=== PATIENT | male | born 1940 | race Caucasian/White ===

== ENCOUNTER 2018-08-29 11:23 | Emergency (ER) | payer MEDICARE, OTHER ==
--- NOTE | 2018-08-29 13:19 | ED ---
Skin Complaint - HPI Summary HPI Summary: Patient is a 78-year-old male who was recently moved here from [place] presenting to the ED with a large area to his back which is raised and slightly painful to the touch. Denies any erythema or warmth to the area. Denies fevers , sweats, chills. He has never had anything like this before. The areas been present times approximately 2-3 weeks, but patient is unable to see the area, so is unsure how long it has been present. He is also requesting medications refills on his glipizide 5 mg of lisinopril 5 mg. He states he is otherwise feeling well and stable. He uses the [facility]. Currently has a history of diabetes and hypertension. - History of Current Complaint Chief Complaint: EDRashSkinAbscess Time Seen by Provider: 08/29/18 11:38 Stated Complaint: SOMETHING ON MY BACK PER PT Hx Obtained From: Patient Onset/Duration: Started Hours Ago Skin Exposure Onset/Duration: Hours Ago Timing: Constant Onset Severity: Mild Current Severity: Mild Pain Intensity: 0 Pain Scale Used: 0-10 Numeric Skin Location: Other: - upper left back Aggravating Symptom(s): Nothing Alleviating Symptom(s): Nothing Associated Signs & Symptoms: Negative - Allergy/Home Medications Allergies/Adverse Reactions: Allergies Allergy/AdvReac Type Severity Reaction Status Date / Time No Known Allergies Allergy Verified 08/29/18 11:26 Home Medications: Home Medications Aspirin 81 mg CHEW TAB* [Aspirin Low Dose TAB*] 81 mg PO DAILY 08/29/18 [ History Confirmed 08/29/18] Lisinopril 5 mg PO DAILY 08/29/18 [History Confirmed 08/29/18] Simvastatin 20 mg PO BEDTIME 08/29/18 [History Confirmed 08/29/18] glipiZIDE TAB* [Glucotrol TAB*] 5 mg PO DAILY 08/29/18 [History Confirmed ] PMH/Surg Hx/FS Hx/Imm Hx Previously Healthy: Yes - Immunization History Hx Pertussis Vaccination: No Immunizations Up to Date: Yes Infectious Disease History: No Infectious Disease History: Denies: Traveled Outside the US in Last 30 Days - Social History Occupation: Unemployed Lives: With Family Alcohol Use: None Hx Substance Use: No Substance Use Type: Reports: None Hx Tobacco Use: No Smoking Status (MU): Never Smoked Tobacco Review of Systems Constitutional: Negative Negative: Fever, Chills, Fatigue, Skin Diaphoresis Negative: Palpitations, Chest Pain Negative: Shortness Of Breath, Cough Positive: no symptoms reported, see HPI Positive: Arthralgia, Myalgia Positive: Other - 2x2cm slightly raised area to the L upper back respresenting likely cyst vs abscess Neurological: Negative All Other Systems Reviewed And Are Negative: Yes Physical Exam Triage Information Reviewed: Yes Vital Signs On Initial Exam: Initial Vitals Temp Pulse Resp BP Pulse Ox 96.7 F 96 14 187/107 95 08/29/18 11:27 08/29/18 11:27 08/29/18 11:27 08/29/18 11:27 08/29/18 11:27 Vital Signs Reviewed: Yes Appearance: Positive: Well-Appearing, Well-Nourished Skin: Positive: Warm, Skin Color Reflects Adequate Perfusion, Other - 2x2cm slightly raised area to the L upper back respresenting likely cyst vs abscess Head/Face: Positive: Normal Head/Face Inspection Eyes: Positive: EOMI, ALEJANDRO, Conjunctiva Clear Neck: Positive: Supple, No Lymphadenopathy Respiratory/Lung Sounds: Positive: Clear to Auscultation, Breath Sounds Present Cardiovascular: Positive: RRR, Pulses are Symmetrical in both Upper and Lower Extremities Neurological: Positive: Speech Normal Psychiatric: Positive: Affect/Mood Appropriate Diagnostics - Vital Signs Vital Signs Temp Pulse Resp BP Pulse Ox 08/29/18 11:27 96.7 F 96 14 187/107 95 - Laboratory Lab Statement: Any lab studies that have been ordered have been reviewed, and results considered in the medical decision making process. Course/Dx - Course Course Of Treatment: During his course of treatment from the patient is evaluated for a 2 x 2 abscess to the back which is located to the upper left side. The area is only somewhat raised, no erythema or warmth to the area. On physical examination, there is tenderness to palpation. The area began to spontaneously drain with deep pressure to the outside of the likely abscess. Small amount of mashed potato consistency and purulent drainage from the area. Likely cyst versus abscess. There is no erythema or warmth to the area. Patient will not be placed on antibiotics. However, he is given the bedside and lisinopril at his regular doses 30 days. He will follow up at the [facility] clinic and states he has already called them to schedule an appointment. He offers no other complaints at this time. Bandage applied to the area. - Diagnoses Provider Diagnoses: Cyst, Medication refill Discharge - Sign-Out/Discharge Documenting (check all that apply): Patient Departure Patient Received Moderate/Deep Sedation with Procedure: No - Discharge Plan Condition: Stable Disposition: HOME Prescriptions: glipiZIDE [Glipizide ER] 5 mg PO DAILY #30 tab.er.[id number] Lisinopril TAB* [Prinivil TAB 5 MG*] 5 mg PO DAILY #30 tab Patient Education Materials: Abscess (ED) Referrals: No Primary Care Phys,NOPCP [Primary Care Provider] - Additional Instructions: Take off bandage tonight Warm compresses or hot showers may help drain the area more This is an abscess and does not require antibiotics at this time Lisinopril 5mg once daily Glipizide 5mg once daily [facility] - Billing Disposition and Condition Condition: STABLE Disposition: Home
[2018-08-29 13:22] VITALS: BP 175/101
== END 2018-08-29 12:40 | disposition home or self-care (01) ==
LOC: ED 11:23
DX: L72.8 Other follicular cysts of the skin and subcutaneous tissue (principal); Z76.0 Encounter for issue of repeat prescription; I10 Essential (primary) hypertension; E11.9 Type 2 diabetes mellitus without complications; Z79.82 Long term (current) use of aspirin; Z79.84 Long term (current) use of oral hypoglycemic drugs
CPT/HCPCS: 87070; 87076; 87077; 87205; 87640; 87641; 99282

== ENCOUNTER 2019-01-19 14:47 | Emergency (ER) | payer OTHER ==
--- NOTE | 2019-01-19 17:23 | ED ---
Laceration/Wound HPI - HPI Summary HPI Summary: This patient is a 78 year old M presenting to [facility] with a chief complaint of a laceration on his left big toe since a few months ago that is now infected. His PCP told him to come to [facility] to get his laceration evaluated. The patient rates the pain 0/10 in severity. Symptoms aggravated by nothing. Symptoms alleviated by nothing. Patient denies fever, chills, nausea, vomiting. Medications reviewed. Allergies noted. PMHx of HTN and diabetes. Pt does not smoke, use drugs, or drink alcohol. - History of Current Complaint Stated Complaint: LAC ON RT BIG TOE PER PT Time Seen by Provider: 01/19/19 17:11 Hx Obtained From: Patient Onset/Duration: Sudden Onset, Still Present, Other - since a few months ago Aggravating: Nothing Alleviating: Nothing Timing: Constant Onset Severity: Mild Current Severity: Mild Pain Intensity: 0 Pain Scale Used: 0-10 Numeric - Allergy/Home Medications Allergies/Adverse Reactions: Allergies Allergy/AdvReac Type Severity Reaction Status Date / Time No Known Allergies Allergy Verified 01/19/19 14:54 Home Medications: Home Medications Simvastatin TAB(NF) [Zocor(NF)] 20 mg PO BEDTIME 01/19/19 [History Confirmed 03/29] PMH/Surg Hx/FS Hx/Imm Hx Previously Healthy: No Endocrine/Hematology History: Reports: Hx Diabetes Cardiovascular History: Reports: Hx Hypertension Sensory History: Denies: Hx Deafness Opthamlomology History: Denies: Hx Cataracts - Surgical History Surgical History: Yes Infectious Disease History: No Infectious Disease History: Denies: Traveled Outside the US in Last 30 Days - Family History Known Family History: Positive: None - Social History Alcohol Use: None Hx Substance Use: No Substance Use Type: Reports: None Hx Tobacco Use: No Smoking Status (MU): Never Smoked Tobacco Review of Systems Negative: Fever, Chills Negative: Vomiting, Nausea Skin: Other - positive - laceration on his left big toe All Other Systems Reviewed And Are Negative: Yes Physical Exam - Summary Physical Exam Summary: Constitutional: Well-developed, Well-nourished, Alert. (-) Distressed Skin: Warm, Dry. Right big toe has a necrotic wound on the plantar aspect, toe is colder than the rest of the foot. Full ROM in big toe HENT: Normocephalic; Atraumatic Eyes: Conjunctiva normal Neck: Musculoskeletal ROM normal neck. (-) JVD, (-) Stridor, (-) Tracheal deviation Cardio: Rhythm regular, rate normal, Heart sounds normal; Intact distal pulses; The pedal pulses are 2+ and symmetric. Radial pulses are 2+ and symmetric. (-) Murmur Pulmonary/Chest wall: Effort normal. (-) Respiratory distress, (-) Wheezes, (-) Rales Abd: Soft, (-) tenderness, (-) Distension, (-) Guarding, (-) Rebound Musculoskeletal: (-) Edema Lymph: (-) Cervical adenopathy Neuro: Alert, Oriented x3 Psych: Mood and affect Normal Triage Information Reviewed: Yes Vital Signs On Initial Exam: Initial Vitals Temp Pulse Resp BP Pulse Ox 97.7 F 68 16 156/91 99 01/19/19 14:52 01/19/19 14:52 01/19/19 14:52 01/19/19 14:52 01/19/19 14:52 Vital Signs Reviewed: Yes Diagnostics - Vital Signs Vital Signs Temp Pulse Resp BP Pulse Ox 01/19/19 14:52 97.7 F 68 16 156/91 99 - Laboratory Result Diagrams: 01/19/19 17:37 01/19/19 17:37 Lab Statement: Any lab studies that have been ordered have been reviewed, and results considered in the medical decision making process. Laceration Repair Course/Dx - Course Course Of Treatment: Patient is here from his PCPs office with an x-ray that shows possible to myelitis or septic arthritis. Patient has no pain in his joint has full range of motion making septic arthritis likely. Patient's toe does appear chronically infected but patient had a normal leukocytosis, negative ESR, negative CRP. Patient was offered admission for further management as he is at high risk for losing his toe. Patient was made aware that he can lose his toe and that he can become septic from an infection. Plan admission multiple attempts left AGAINST MEDICAL ADVICE. - Clinical Impression Provider Diagnoses: Toe infection Discharge ED - Sign-Out/Discharge Documenting (check all that apply): Patient Departure - discharge Patient Received Moderate/Deep Sedation with Procedure: No - Discharge Plan Condition: Stable Disposition: HOME Prescriptions: Sulfamethox/Trimethoprim DS* [Bactrim DS 800/160 TAB*] 1 tab PO BID 7 Days #14 tab Referrals: Floyd,Maribel L [Primary Care Provider] - 2 Days Additional Instructions: Take the antibiotics as prescribed. Come back to the ED if you decide to get treated. Follow up with your primary care provider within 1-3 days. - Billing Disposition and Condition Condition: STABLE Disposition: Home - Attestation Statements Document Initiated by Jason: Yes Documenting Scribe: Bennett Olmos Provider For Whom Jason is Documenting (Include Credential): Dr. Rober Lovell MD Scribe Attestation: Bennett Guthrie scribed for Dr. Rober Lovell MD on 01/19/19 at 2049. Scribe Documentation Reviewed: Yes Provider Attestation: The documentation as recorded by the Bennett soto accurately reflects the service I personally performed and the decisions made by me, Dr. Rober Lovell MD Status of Scribe Document: Viewed
[2019-01-19 17:44] LABS: ABS Eosinophils 0.1 10^3/ul (0-0.6); ABS Lymphocytes 1.2 10^3/ul (1.0-4.8); ABS Monocytes 0.8 10^3/ul (0-0.8); ABS Neutrophils 5.6 10^3/ul (1.5-7.7); Eosinophil % 0.9 %; Hematocrit 47 % (42-52); Hemoglobin 15.3 g/dL (14.0-18.0); Lymphocyte % 15.7 %; Mean Corpuscular HGB Conc 32 g/dL (31-36); Mean Corpuscular Hemoglobin 29 pg (27-31); Mean Corpuscular Volume 91 fL (80-94); Mean Platelet Volume 8.5 fL (7.4-10.4); Nucleated Red Blood Cells % 0.2; Platelet Count 252 10^3/uL (150-450); Red Blood Count 5.19 10^6 /uL (4.18-5.48); Red Cell Distribution Width 15 % (10-15); White Blood Count 7.8 10^3/uL (3.5-10.8)
[2019-01-19 18:01] LABS: ALT 16 U/L (7-52); AST 20 U/L (13-39); Albumin 4.3 g/dL (3.2-5.2); Albumin/Globulin Ratio 1.6 (1-3); Alkaline Phosphatase 56 U/L (34-104); Anion Gap 11 mmol/L (2-11); BUN/Creatinine Ratio 17.8 (8-20); Blood Urea Nitrogen 28 mg/dL (6-24); C Reactive Protein < 1.00 mg/L (<8.01); CO2 Carbon Dioxide 24 mmol/L (22-32); Calcium 9.7 mg/dL (8.6-10.3); Chloride 102 mmol/L (101-111); EGFR Non-African American 42.9 (>60); Globulin 2.7 g/dL (2-4); Glucose 135 mg/dL (70-100); Potassium 4.5 mmol/L (3.5-5.0); Sodium 137 mmol/L (135-145)
[2019-01-19 19:21] LABS: Erythrocyte Sed Rate 17 mm/Hr (0-19)
[2019-01-19 20:01] VITALS: BP 136/96
== END 2019-01-19 20:02 | disposition home or self-care (01) ==
LOC: ED 14:47
DX: L08.9 Local infection of the skin and subcutaneous tissue, unspecified (principal); I10 Essential (primary) hypertension; E11.9 Type 2 diabetes mellitus without complications; Z79.82 Long term (current) use of aspirin; Z79.84 Long term (current) use of oral hypoglycemic drugs; Z79.899 Other long term (current) drug therapy
CPT/HCPCS: 36415; 80053; 85025; 85652; 86140; 87040; 99282

== ENCOUNTER 2019-08-20 21:39 | Inpatient (IN) | payer OTHER ==
[2019-08-20] MEDS ORDERED: Diazepam INJ CARPUJECT* 5 MG/ML IV ONE (21:42)
[2019-08-20] MEDS ORDERED: Diazepam INJ CARPUJECT* 5 MG/ML ONE (21:42)
--- NOTE | 2019-08-20 21:42 | ED ---
Neurological HPI - HPI Summary HPI Summary: 79-year-old male with history of diabetes/hypertension arriving via ambulance to [facility] for evaluation of altered mental status and two seizures during transport. Per EMS, they were called by the patients roommate who found him unresponsive but still breathing. When EMS arrived, they found the patient to be awake and able to answer questions appropriately. While trying to move him onto the stretcher, the patient began seizing on the bed. He began desatting into the 70s, so he was placed on 10L non rebreather. Patient then was confused although awake and became combative in transport. He seized again upon arrival to the ED at 2136. Patient did not receive any medications in the ambulance, but Valium was given in the ED while entering the room. patient was incontinent of urine, 12-lead was non-diagnostic for a STEMI. Blood glucose reported as 293 but fingerstick is too high to read. Vitals otherwise within normal limits. Two [address]. Unknown last well known. Patient's roommate unsure of patient's history. LEVEL 5 CAVEAT SECONDARY TO ALTERED MENTAL STATUS. History obtained from EMS and medical records. - History of Current Complaint Stated Complaint: SEIZURES PER EMS Hx Obtained From: EMS, Medical Records Hx From Patient Unobtainable Due To: Altered Mental Status Number of Seizures: 2 - per EMS Neurological Deficit Location: Generalized Pain Intensity: 0 Pain Scale Used: 0-10 Numeric Character: Confusion, Agitation Associated Signs and Symptoms: Positive: Agitation, Seizure - x2, AMS - Allergy/Home Medications Allergies/Adverse Reactions: Allergies Allergy/AdvReac Type Severity Reaction Status Date / Time No Known Allergies Allergy Verified 01/19/19 14:54 Home Medications: Home Medications Aspirin 81 mg CHEW TAB* [Aspirin Low Dose TAB*] 81 mg PO DAILY 08/29/18 [ History Confirmed 08/20/19] glipiZIDE TAB* [Glucotrol TAB*] 5 mg PO DAILY 08/29/18 [History Confirmed ] Atenolol TAB* [Tenormin TAB* 50 MG] 50 mg PO DAILY 08/20/19 [History Confirmed 08/20/19] Atorvastatin Calcium [Lipitor] 80 mg PO DAILY 08/20/19 [History Confirmed ] Finasteride [Proscar] 5 mg PO DAILY 08/20/19 [History Confirmed 08/20/19] Lisinopril TAB* [Prinivil TAB 5 MG*] 10 mg PO DAILY 08/20/19 [History Confirmed 08/20/19] PMH/Surg Hx/FS Hx/Imm Hx Endocrine/Hematology History: Reports: Hx Diabetes Cardiovascular History: Reports: Hx Hypertension Sensory History: Denies: Hx Cataracts, Hx Deafness Opthamlomology History: Denies: Hx Cataracts - Surgical History Surgical History: Unable to Obtain/Confirm - LEVEL 5 CAVEAT SECONDARY TO ALTERED MENTAL STATUS. - Family History Family History: LEVEL 5 CAVEAT SECONDARY TO ALTERED MENTAL STATUS. - Social History Alcohol Use: None Alcohol Amount: unknown, patient level 5 caveat d/t AMS Substance Use Comment - Amount & Last Used: unknown, patient level 5 caveat d/t AMS Smoking Status (MU): Unknown if Ever Smoked - unknown, patient level 5 caveat d/ t AMS - Additional Comments History Additional Comments: diabetes, hypertension Review of Systems - ROS Summary Review of Systems Summary: Home Medications Medication Instructions Recorded Confirmed Type Aspirin 81 mg CHEW TAB* [Aspirin 81 mg PO DAILY 08/29/18 01/19/19 History Low Dose TAB*] Lisinopril TAB* [Prinivil TAB 5 5 mg PO DAILY #30 tab 08/29/18 01/19/19 Rx MG*] glipiZIDE TAB* [Glucotrol TAB*] 5 mg PO DAILY 08/29/18 01/19/19 History Simvastatin TAB(NF) [Zocor(NF)] 20 mg PO BEDTIME 01/19/19 01/19/19 History Sulfamethox/Trimethoprim DS* 1 tab PO BID 7 Days #14 tab 01/19/19 Rx [Bactrim DS 800/160 TAB*] Positive: incontinence Neurological/Mental Status: Other - AMS, seizing Psychological: Other - combative All Other Systems Reviewed And Are Negative: No - Comments Additional Review of Systems Comments: LEVEL 5 CAVEAT SECONDARY TO ALTERED MENTAL STATUS. Physical Exam - Summary Physical Exam Summary: General: Elderly male, disheveled, Unkempt appearing, Incontinent of urine upon arrival. Received 5mg Valium upon arrival. HEENT: Normocephalic, Atraumatic. Eyes: Conjuctiva normal, PERRL. Oropharynx: Clear, mucous membranes moist, (-) exudates. Neck: Soft, FROM, (-) lymphadenopathy, (-) thyromegaly, (-) JVD. Cardiovascular: Irregularly irregular, (-) murmur. Lungs: Currently 93% on 15L, Decreased breath sounds bilaterally, Tight wheezing throughout, (-) rales, (-) rhonchi. Abdomen: Soft, non-tender, non-distended, (-) organomegaly, normal bowel sounds. Extremities: No edema. Skin: Skin tears of the left forearm, Lower legs have thickened skin, Old ecchymosis of the right knee, Color pretty mullins/purple upon arrival in the extremities, (-) rash Neuro: Responsive to painful stimuli, Does not follow commands, Moving all extremities Psychiatric: Unable to assess GCS: 9 (see scale) Triage Information Reviewed: Yes Vital Signs Reviewed: Yes Completion Of Physical Exam Limited Due To: Altered Mental Status, Level 5 - [place] Coma Scale Best Eye Response: 4 - Spontaneous Best Motor Response: 4 - Withdraws Best Verbal Response: 1 - None Coma Scale Total: 9 Glascow Coma Scale Comments: inital upon arrival at 2136 Procedures - Sedation Patient Received Moderate/Deep Sedation with Procedure: No Diagnostics - Laboratory Result Diagrams: 08/20/19 21:48 08/20/19 21:48 Lab Statement: Any lab studies that have been ordered have been reviewed, and results considered in the medical decision making process. - Radiology CXR Radiology Interpretation Completed By: ED Physician Summary of Radiographic Findings: Poor inspiration. This film was reviewed and interpreted by Dr. Torres, pending official read. - CT Brain CT CT Interpretation Completed By: Radiologist Summary of CT Findings: Impression: Right middle cerebral artery appears hyperdense. This report was reviewed by Dr. Torres. Head/Neck CTA CT Interpretation Completed By: Radiologist Summary of CT Findings: Head Impression: No significant stenosis or occlusion. Neck Impression: No acute abnormality. This report was reviewed by Dr. Torres. - EKG 2202 Cardiac Rate: Other Rate - 96 BPM EKG Rhythm: Atrial Fibrillation Summary of EKG Findings: EKG at 2202 reveals atrial fibrillation at rate of 96 BPM. No STEMI. This EKG was reviewed and interpreted by Dr. Torres. Re-Evaluation - Re-Evaluation First Eval Re-Evaluation Time: 21:45 Comment: Nurse Sherly spoke with the patients sister via phone, who relayed to her that she and the patient havent spoken in over a month. She does not any of his past medical history. Second Eval Re-Evaluation Time: 22:30 Comment: Sherly spoke with Shay at the [facility]. He will send history about the patient via fax. Course/Dx - Course Course Of Treatment: 79-year-old male brought in by ambulance with active seizure. EMS syas they were called to the home by a roommate. Roommate states she found the patient unresponsive. When EMS arrived, first responders were there and patient was sitting up talking to them. He then started seizing and was taken to the ambulance. The roommate knows absolutely nothing about the patient. According to the chart, he has hypertension and diabetes. Blood glucose too high to read on arrival. Valium 5mg given IV. Patient sent immediately to CAT scan for CT head. IV fluids started. ABG demonstrates elevated CO2. low oxygen. Low pH. Patient placed on BiPAP. Given duonebs. potassium returns at 2.7 so insulin cannot be started until potassium was replaced. Anion gap is elevated suggestive of DKA. CT head has a questionable abnormality in the MCA. CTA head and neck are essentially normal. patient given IV fluids. Potassium. Repeat ABG on BiPAP has improved significantly. Patient referred to hospitalist for admission. - Diagnoses Provider Diagnoses: Seizure, Acute respiratory failure, DKA (diabetic ketoacidosis), Hypokalemia - Physician Notifications Discussed Care Of Patient With: Cyn Doyle - hospitalist Time Discussed With Above Provider: 23:50 Instructed by Provider To: Other - I discussed the patients case with Dr. Doyle, who accepts the patient for admission. - Critical Care Time Critical Care Time: 75-104 min - 100 minutes Discharge ED - Sign-Out/Discharge Documenting (check all that apply): Patient Departure - Patient accepted for admission by Dr. Doyle. - Discharge Plan Condition: Stable Disposition: ADMITTED TO [facility] Referrals: Maribel George [Primary Care Provider] - - Billing Disposition and Condition Condition: STABLE Disposition: Admitted to [facility] - Attestation Statements Document Initiated by Scribe: Yes Documenting Scribe: Cari Joshi Provider For Whom Scribe is Documenting (Include Credential): Neela Torres MD Scribe Attestation: ICari, scribed for Neela Torres MD on 08/21/19 at 0039. Scribe Documentation Reviewed: Yes Provider Attestation: The documentation as recorded by the scribe, Cari Joshi accurately reflects the service I personally performed and the decisions made by me, Neela Torres MD Status of Scribifrah Document: Viewed
[2019-08-20] MEDS ORDERED: Succinylcholine* 20 MG/ML 10 ML VIAL ONE (21:44)
[2019-08-20] MEDS ORDERED: NS 0.9% 1000 ML** 1,000 ML IV ONE ×2 (21:46→23:32)
--- OUTSIDE RECORDS SUMMARY | 2019-08-20 21:49 | XMS REPORT | Continuity of Care Document ---
:1940 External Reference #:[id number] Author Name Belgica Esposito O.D. (transmitted by agent of provider Lizbet Aguirre) Address [address] [place] [address] Care Team Providers Name Role Phone Maribel George N.P. - Nurse Care Team Information Purification Director [phone] Practitioner Problems Active Problems Provider Date Type 2 diabetes mellitus Onset: Nuclear senile cataract Belgica Esposito O.D. Onset: 04/19/2019 Social History Type Date Description Comments Sex Unknown ETOH Use Denies alcohol use Tobacco Use Start: Unknown End: Patient is a former smoker Recreational Drug Use Denies Drug Use Smoking Status Reviewed: 04/19/19 Patient is a former smoker Allergies, Adverse Reactions, Alerts Description No Known Drug Allergies Medications Active Medications SIG Qnty Indications Ordering Provider Date Hydrochlorothiazide Unknown 12.5mg Tablets Simvastatin Unknown 40mg Tablets Tamsulosin HCL Unknown 0.4mg Capsules Immunizations Description No Information Available Vital Signs Description No Information Available Results Description No Information Available Procedures Date Code Description Status 04/19/2019 36023 New Patient Comprehensive Exam Completed Medical Devices Description No Information Available Encounters Description No Information Available Assessments Date Code Description Provider 04/19/2019 H25.13 Age-related nuclear cataract, bilateral Belgiac Esposito O.D. 04/19/2019 E11.9 Type 2 diabetes mellitus without complications Belgica Esposito O.D. Plan of Treatment 04/19/2019 - Belgica Esposito O.D.H25.13 Age-related nuclear cataract, bilateralComments:You have been diagnosed with cataracts. They are limiting your vision, and I am unable to improve your vision with new glasses. I am recommending you schedule cataract surgery at your earliest convenience. Please speak with Antonina at to set up all necessary appointments. Antonina will set up a preoperative appointment to get all of your measurements for surgery. We recommend that you write down any questions you may have so Dr. Su can address them at this appointment.Follow up:For preop exam before surgery.E11.9 Type 2 diabetes mellitus without complicationsComments:Smoking can increase the risk of developing or worsening any eye related disease, as well as affect your overall health. If you are a smoker, we strongly recommend that you quit.If you are not a smoker, we strongly recommend that you do not start. You have diabetes. I do not detect any changes in both of your retinas from diabetes at this time. Proper control of your diabetes is important for the health of your eyes. Changes in your eyes from diabetes can happen without symptoms, so it is important that you have your eyes examined. Functional Status Description No Information Available Mental Status Description No Information Available Referrals Refer to Dr Reason for Referral Status Appt Date Jose Juan Cortes M.D. CATARACT Created [address] [place] [id number] [phone] Belgica Esposito O.D. Created [facility] [address] [address] [phone] Belgica Esposito O.D. ROUTINE Created [facility] [address] [address] [phone]
[2019-08-20] MEDS ORDERED: Albuterol/Ipratropium NEB.SOL* Albuterol 2.5 MG/Ipratropium 0.5 MG 3 ML ONE (22:08)
[2019-08-20 22:10] LABS: ABS Basophils 0.1 10^3/ul (0-0.2); ABS Lymphocytes 2.5 10^3/ul (1.0-4.8); ABS Monocytes 1.3 10^3/ul (0-0.8); ABS Neutrophils 9.6 10^3/ul (1.5-7.7); Eosinophil % 0.2 %; Hematocrit 52 % (42-52); Hemoglobin 16.8 g/dL (14.0-18.0); Lymphocyte % 18.2 %; Mean Corpuscular HGB Conc 32 g/dL (31-36); Mean Corpuscular Hemoglobin 29 pg (27-31); Mean Corpuscular Volume 91 fL (80-94); Mean Platelet Volume 9.2 fL (7.4-10.4); Platelet Count 266 10^3/uL (150-450); Red Blood Count 5.74 10^6 /uL (4.18-5.48); Red Cell Distribution Width 15 % (10-15); White Blood Count 13.5 10^3/uL (3.5-10.8)
[2019-08-20 22:20] LABS: Activated Partial Thrombo Time 29.6 seconds (26.0-38.0); INR 1.03 (0.82-1.09)
[2019-08-20 22:26] LABS: ALT 19 U/L (7-52); AST 21 U/L (13-39); Albumin 4.2 g/dL (3.2-5.2); Albumin/Globulin Ratio 1.4 (1-3); Alkaline Phosphatase 94 U/L (34-104); BUN/Creatinine Ratio 11.9 (8-20); Blood Urea Nitrogen 20 mg/dL (6-24); CO2 Carbon Dioxide 26 mmol/L (22-32); Calcium 9.5 mg/dL (8.6-10.3); Chloride 89 mmol/L (101-111); EGFR African American 47.9 (>60); EGFR Non-African American 39.6 (>60); Magnesium 1.6 mg/dL (1.9-2.7); Sodium 136 mmol/L (135-145); Total Protein 7.2 g/dL (6.4-8.9)
[2019-08-20] MEDS ORDERED: Iodixanol* (CONTRAST) 320 MG/ML 100 ML SDV IV ONE (22:27)
[2019-08-20 22:30] LABS: Alcohol 11 mg/dL (<10)
[2019-08-20 22:37] LABS: Anion Gap 21 mmol/L (2-11); Glucose 703 mg/dL (70-100); Potassium 2.7 mmol/L (3.5-5.0); Troponin I 0.05 ng/mL (<0.03)
[2019-08-20] MEDS ORDERED: NS 0.9% IVPB ONE ×2 (22:41)
[2019-08-20] MEDS ORDERED: POTASSIUM CHLORIDE TPN IVPB ONE ×2 (22:41)
[2019-08-20] MEDS ORDERED: Lorazepam PYXIS KEY ONE (22:58)
[2019-08-20] MEDS ORDERED: LORazepam INJ* 2 MG/ML 1 ML VIAL ONE (22:59)
[2019-08-20] MEDS ORDERED: LORazepam INJ* 2 MG/ML 1 ML VIAL IV PUSH ONE (22:59)
[2019-08-20] MEDS ORDERED: Albuterol/Ipratropium NEB.SOL* Albuterol 2.5 MG/Ipratropium 0.5 MG 3 ML INH ONE (23:03)
[2019-08-20] MEDS: KCL 20 MEQ/100 ML IVPREMIX* 20 MEQ/100 ML BAG IV SCH (23:39)
[2019-08-20 23:41] LABS: Urine Appearance Cloudy; Urine Bilirubin Negative (Negative); Urine Blood 3+ (Negative); Urine Color Yellow; Urine Glucose 3+(>=500 mg/dL) (Negative); Urine Ketones Negative (Negative); Urine Nitrite Negative (Negative); Urine Protein 1+(30 mg/dL) (Negative); Urine Specific Gravity 1.022 (1.010-1.030); Urine Urobilinogen Negative (Negative)
[2019-08-20 23:45] LABS: Urine Bacteria Absent (Absent); Urine Red Blood Cell 3+(>10/hpf) (Absent); Urine White Blood Cell Trace(0-5/hpf) (Absent)
[2019-08-20 23:53] LABS: Urine Benzodiazepine Screen None Detected (None Detect); Urine Opiates Screen None Detected (None Detect)
[2019-08-21] MEDS ORDERED: LORazepam INJ* 2 MG/ML 1 ML VIAL IV PUSH ONE (00:29)
[2019-08-21] MEDS ORDERED: Lorazepam PYXIS KEY PRN ×3 (00:29→02:13)
[2019-08-21] MEDS ORDERED: Insulin REGULAR(*) 1 UNITS UNIT IV PUSH ONE ×2 (00:32→01:49)
[2019-08-21] MEDS ORDERED: levETIRAcetam 1000MG IVPREMIX* 1,000 MG/100 ML BAG IVPB ONE (00:39)
[2019-08-21] MEDS ORDERED: Thiamine INJ* 100 MG/ML 2 ML VIAL IM ONE (00:43)
[2019-08-21] MEDS ORDERED: LORazepam INJ* 2 MG/ML 1 ML VIAL IV PUSH PRN (00:55)
[2019-08-21] MEDS ORDERED: NS 0.45% KCl 20 Meq 1000 ML* 1,000 ML IV SCH (01:00)
[2019-08-21] MEDS ORDERED: LORazepam INJ* 2 MG/ML 1 ML VIAL IV PUSH SCH (01:00)
[2019-08-21 01:22] LABS: ABS Lymphocytes 0.4 10^3/ul (1.0-4.8); ABS Monocytes 0.7 10^3/ul (0-0.8); ABS Neutrophils 12.5 10^3/ul (1.5-7.7); Eosinophil % 0.1 %; Hematocrit 46 % (42-52); Hemoglobin 15.3 g/dL (14.0-18.0); Lymphocyte % 3.2 %; Mean Corpuscular HGB Conc 33 g/dL (31-36); Mean Corpuscular Hemoglobin 29 pg (27-31); Mean Corpuscular Volume 87 fL (80-94); Mean Platelet Volume 8.8 fL (7.4-10.4); Platelet Count 213 10^3/uL (150-450); Red Cell Distribution Width 15 % (10-15); White Blood Count 13.7 10^3/uL (3.5-10.8)
[2019-08-21 01:22] LABS: Creatine Kinase 117 U/L (10-223)
[2019-08-21] MEDS ORDERED: Magnesium Sulfate 2 GM IV* 2 G/50 ML BAG IVPB ONE (01:27)
[2019-08-21 01:42] LABS: Anion Gap 11 mmol/L (2-11); BUN/Creatinine Ratio 12.7 (8-20); Blood Urea Nitrogen 19 mg/dL (6-24); CO2 Carbon Dioxide 31 mmol/L (22-32); Calcium 8.5 mg/dL (8.6-10.3); Chloride 95 mmol/L (101-111); Creatine Kinase 108 U/L (10-223); EGFR African American 54.6 (>60); EGFR Non-African American 45.1 (>60); Magnesium 1.4 mg/dL (1.9-2.7); Potassium 3.5 mmol/L (3.5-5.0); Sodium 137 mmol/L (135-145)
[2019-08-21 01:48] LABS: Glucose 575 mg/dL (70-100)
[2019-08-21] MEDS ORDERED: Insulin Infusion 100unit/100mL 100 UNIT/100 ML BAG IV SCH ×2 (02:00→04:00)
[2019-08-21] MEDS: LORazepam INJ* 2 MG/ML 1 ML VIAL IV SCH ×3 (02:35→16:27)
[2019-08-21] MEDS: KCL 20 MEQ/100 ML IVPREMIX* 20 MEQ/100 ML BAG IV SCH ×2 (03:01→06:23)
--- NOTE | 2019-08-21 03:41 | HP ---
HISTORY AND PHYSICAL: DATE OF ADMISSION: 08/21/19 TIME OF EVALUATION: Midnight. PRIMARY CARE PROVIDER: Maribel George NP, at the [facility]. CHIEF COMPLAINT: Seizure. HISTORY OF PRESENT ILLNESS: Mr. Stevenson is a 79-year-old male with a past medical history of hyperte nsion and diabetes, who was brought in by EMS to the emergency room due to altered mental status. Pl ease note that at the time of the interview, the patient is sedated after receiving Ativan and he can not provide any significant history. Information is obtained from emergency room physician and nurse at the bedside. The patient was found with altered mental status by a roommate just prior to EMS being called. [place] [facility] [place], the patient had seizure activity en route. He was reported seizing on arrival to e ED and he received Valium 5 mg IV and IV fluids were started. He was wearing 15 L of oxygen via Ox yMask with an oxygen saturation of 92% with some duskiness and mottling noted. In the emergency room, he had labs, CT brain, CTA head, and his blood gas showed respiratory acidosis and he was started on BiPAP that he is still wearing at the time of my evaluation. No further history is available at this time. PAST MEDICAL HISTORY: As per records: 1. Hypertension. 2. Type 2 diabetes. 3. Hyperlipidemia. 4. BPH. MEDICATION LIST: 1. Aspirin 81 mg p.o. daily. 2. Atenolol 50 mg p.o. daily. 3. Atorvastatin 80 mg p.o. daily. 4. Finasteride 5 mg p.o. daily. 5. Glipizide 5 mg p.o. daily. 6. Lisinopril 10 mg p.o. daily. ALLERGIES: As per records no known drug allergy. FAMILY HISTORY: I am unable to obtain from the patient due to his sedation. SOCIAL HISTORY: I am unable to obtain from the patient due to his sedation, but on the prior ED visi t, it was reported that he did not smoke, use drugs, or drink alcohol. REVIEW OF SYSTEMS: I am unable to obtain from the patient due to his sedation. PHYSICAL EXAMINATION GENERAL: The patient is an elderly gentleman with disheveled appearance lying in the ED stretcher, i n no acute distress. VITAL SIGNS: Temperature 97.4, heart rate is 88, respiratory rate is 19, oxygen saturation is 100% o n BiPAP, blood pressure is 121/75. HEENT: Pupils are equal and reactive to light. Dry mucous membranes. CHEST: Breath sounds bilaterally diminished with no added sounds. CVS: Normal S1, S2. Regular rate and rhythm. ABDOMEN: Soft, nontender, nondistended. Bowel sounds are present. EXTREMITIES: No edema. NEURO: The patient is sedated, but arousable to touch and voice. As I performed his physical examin ation, he became more agitated reaching out to his BiPAP mask, his gown, tele leads trying to remove them, but later on he calmed down. He is moving all 4 extremities and withdrawing from touch and alicia n, but does not follow commands. SKIN: Dry. There is no duskiness or mottling noted as it was described on his arrival to ED. DIAGNOSTIC STUDIES/LAB DATA: The patient had a CBC that showed WBC of 13.5, hemoglobin of 16.8, hem atocrit of 52, platelets of 266 with 71% neutrophils. INR is 1.03. Initial ABG showed a pH of 7.07 with a pCO2 of 88, PaO2 of 75, bicarb of 19.5, saturation of 92%, and a repeat one done more than an hour later while the patient was on BiPAP showed a normal pH of 7.37, pCO2 of 47, PaO2 of satur ation of 100%. Chemistry showed sodium of 136, potassium 2.7, chloride of 89, bicarb of 26, anion gap is 21, BUN is 20, creatinine is 1.68, glucose 763, lactic acid 12.4, calcium 9.5, magnesium 1.6. Total bilirubin i s 2.4. First troponin is 0.05. Urinalysis showed 1+ protein, 3+ blood, 3+ rbc's, 3+ glucose, and this was obtained after the Zimmer c atheter was placed. Urine toxicology is negative. Serum alcohol is 11. CT brain without contrast showed a right MCA that appears hyperdense. CTA of the head and neck showed no significant stenosis or occlusion. EKG done on 08/20/19 at 21:59 shows atrial fibrillation at 69 beats per minute with a widened QRS sug gestive of a left anterior fascicular block. There is no prior EKG to compare. 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 ASSESSMENT AND PLAN: Mr. Stevenson is a 79-year-old male with a past medical history of hypertension, type 2 diabetes; hyperlipidemia, benign prostatic hyperplasia, who presented to the emergency room af ter his roommate called EMS due to altered mental status. The patient developed a seizure en route a nd had another one while in the hospital and he will be admitted for further evaluation and managemen t. 1. Seizure. This appears to be metabolic in nature associated with his hyperosmolar nonketotic stat e. The patient's initial CT of the brain had a questionable right middle cerebral artery hyperdensit y that was not confirmed on CTA of the head. The patient will receive Keppra load and we will reques t Neurology consultation to determine further workup. He will also be placed on seizure precautions. Although there is no reported history of alcohol abuse, the patient's serum alcohol level is 11. T his seizure may be secondary to alcohol withdrawal depending on how much alcohol he drinks. So, for now until we can clarify his history further, he will be started on a WAM protocol with Ativan taper. The patient will also be monitored with neuro checks. 2. Acute hypercapnic respiratory failure. It seems to be related with sedation. It is unclear if th e patient has a history of COPD, but his initial ABG showed respiratory acidosis with significant imp rovement with BiPAP. We will continue this for now and try to release him from BiPAP if possible. H is chest x-ray does not show any signs of acute infection and he is afebrile with stable vital signs. 3. Hyperosmolar nonketotic state. Etiology is unclear at this time. The patient has known history of type 2 diabetes, treated with glipizide, but it is unclear how compliant he is with medications or diet. He does not appear to have an infectious process causing acute decompensation. He will be ad mitted to the intensive care unit. He will be started on insulin drip and we will continue to monito r his glucose. We will recheck a hemoglobin A1c and as he improves, we will transition him back to h is oral hypoglycemics. 4. Severe lactic acidosis. This appears to be secondary to seizure. As described above, the patien t does not appear to have any acute infections at this time. We will continue fluid resuscitation an d we will repeat his lactic acid. 5. Hypokalemia/hypomagnesemia. Those will be repeated, especially the potassium in the setting of a n insulin drip. 6. Mild troponin elevation in the setting of seizure. We will check a CPK level as the patient like ly has CPK elevation. We will check serial troponins, but he does not appear to have acute coronary syndrome at this time. 7. Possible atrial fibrillation. Although the patient sounds regular on my physical examination, hi s initial EKG suggested atrial fibrillation and it is unclear if this is new or not. We will continu e to monitor with telemetry, but after we obtain records from his primary care provider. If this is new, he may need further workup. 8. Acute kidney injury. Likely prerenal in the setting of hyperosmolar nonketotic state. We will c ontinue fluid resuscitation and monitor urine output. 9. DVT prophylaxis. The patient has a score of at least 3 on a DVT Prophylaxis Risk Assessment Guid e and he will be started on subcutaneous heparin. 10. Code status is full. TIME SPENT: Approximately 60 minutes was spent with the patient's physical examination, medical luiz rds review, physical examination to complete this admission, more than half this time was spent face- to-face with the patient and coordination of care. [id number]/[facility] #: [id number]
[2019-08-21 05:00] LABS: ABS Basophils 0.1 10^3/ul (0-0.2); ABS Lymphocytes 0.6 10^3/ul (1.0-4.8); ABS Monocytes 0.8 10^3/ul (0-0.8); Eosinophil % 0.1 %; Hematocrit 46 % (42-52); Hemoglobin 15.4 g/dL (14.0-18.0); Lymphocyte % 3.1 %; Mean Corpuscular HGB Conc 33 g/dL (31-36); Mean Corpuscular Hemoglobin 29 pg (27-31); Mean Corpuscular Volume 86 fL (80-94); Mean Platelet Volume 8.6 fL (7.4-10.4); Nucleated Red Blood Cells % 0.1; Platelet Count 243 10^3/uL (150-450); Red Blood Count 5.35 10^6 /uL (4.18-5.48); Red Cell Distribution Width 15 % (10-15); White Blood Count 18.5 10^3/uL (3.5-10.8)
[2019-08-21 05:16] LABS: Calcium 8.3 mg/dL (8.6-10.3); EGFR African American 60.1 (>60); EGFR Non-African American 49.7 (>60); Potassium 4.1 mmol/L (3.5-5.0)
[2019-08-21 05:22] LABS: Troponin I 0.22 ng/mL (<0.03)
[2019-08-21] MEDS ORDERED: D5W 1/2 NS KCl 20 Meq 1000 ML* 1,000 ML IV SCH (06:00)
[2019-08-21] MEDS: Heparin VIAL(*) 5000 UNITS/ML VIAL (FIVE THOUSAND) SUBCUT SCH ×3 (06:23→21:04)
--- NOTE | 2019-08-21 07:03 | PN ---
Hospitalist Progress Note Date of Service: 08/21/19 HOSPITALIST ADDENDUM Called by RN - patient's last FS 97. Will d/c Insulin drip and continue D51/2NS infusion. S/o to Dr Yeager.
[2019-08-21] MEDS: Multivitamins/Minerals TAB PO SCH (08:30)
[2019-08-21] MEDS ORDERED: Folic Acid TAB* 1 MG PO SCH (09:00)
[2019-08-21] MEDS ORDERED: Thiamine TAB* 100 MG TAB PO SCH (09:00)
[2019-08-21] MEDS ORDERED: Dextrose 50% Syringe 50 ML* 25 GM/50 ML SYRINGE IV PUSH PRN (10:29)
--- NOTE | 2019-08-21 11:11 | ECHO ---
*[facility]* [place] [address] Fax #: [phone] Transthoracic Echocardiogram Patient: Negro Stevenson : 1940 Study Date: 08/21/2019 Age: 79 Gender: M HR: 70 bpm Height: 72 in /182.9 cm BSA: 2.08 m^2 Weight: 189.6 lb /86.2 kg BMI: 25.8 kg/m^2 *Assistant Child Care Teacher: * Lexie Riojas [facility] *Referring Physician: * Cyn McclendonReading Physician: * Aziza Peterson MD Indications: Abnormal EKG. Troponin elevation. History: Risk factors: Hypertension. Diabetes mellitus. Hyperlipidemia. Conclusions Summary: - Procedure narrative: Image quality was suboptimal in some views. Patient on Bipap. Excellent subcostal imaging. - Left ventricle: The cavity size is below normal. Wall thickness is mildly increased. Systolic function is normal. The estimated ejection fraction is 55-60%. - Right ventricle: The cavity size is mildly to moderately dilated. Systolic function is low normal. - Mitral valve: The Mitral valve annulus appears moderately calcified. The leaflets are mildly thickened. There is a mobile calcific echo-density at the posterior chordal structures measuring 0.6 cm x 0.9 cm. There is trace to mild regurgitation. - Aortic valve: The valve is trileaflet. The leaflets are mildly thickened. Cusp separation is at the lower limits of normal. There is trace regurgitation. - Tricuspid valve: There is trace to mild regurgitation. - Aorta: The ascending aorta internal dimension in the A-P direction, maximal systolic dimension is 4.3 cm. - Ascending aorta: The ascending aorta is moderately dilated. - Pulmonary arteries: Systolic pressure is within the normal range. - No prior echocardiogram to compare. - Comment: Mitral valve mobile structure could be sclerosis associated with MAC, but can't exclude a vegetation or cardiac mass such as a firbroelastoma. Clincial correlation recommended. If clinically indicated a transesophageal echocardiogram could provide additonal imformation, improved imaging. Study data: Transthoracic echocardiogram. Procedure: Transthoracic echocardiography was performed. Image quality was suboptimal. The study was technically limited due to poor acoustic window availability, poor patient compliance, and Patient on Bipap. Complete 2D, spectral Doppler, and color flow Doppler. Location: ICU Patient status: Inpatient. Patient room number: ICU-16. Rhythm: Normal sinus rhythm with PAC's. Findings Left ventricle: Poorly/ not visualized in apical views. The cavity size is below normal. Wall thickness is mildly increased. Systolic function is normal. The estimated ejection fraction is 55-60%. Regional wall motion abnormalities cannot be excluded. There is no consistent Doppler evidence of clinically significant diastolic dysfunction. Right ventricle: The cavity size is mildly to moderately dilated. Systolic function is low normal. Systolic pressure is within the normal range. Ventricular septum: There is septal flattening of the interventricular septum consistent with RV volume or pressure overload. Left atrium: The atrium is normal in size. Right atrium: The atrium is normal in size. Mitral valve: The Mitral valve annulus appears moderately calcified. The leaflets are mildly thickened. There is a mobile echo-density at the posterior chordal structures measuring 0.6 cm x 0.9 cm. Images 5 and 6. There is no evidence of stenosis. There is trace to mild regurgitation. Aortic valve: The valve is trileaflet. The leaflets are mildly thickened. Cusp separation is at the lower limits of normal. There is no evidence of stenosis. Velocity through the aortic valve may be underestimated due to poor accoustic windows. There is trace regurgitation. Tricuspid valve: The leaflets are normal thickness. There is no evidence of stenosis. There is trace to mild regurgitation. Pulmonic valve: The leaflets are normal thickness. There is no evidence of stenosis. There is trace regurgitation. Aorta: Aortic root: The aortic root is moderately dilated. Ascending aorta: The ascending aorta is moderately dilated. Aortic arch: The aortic arch is appears normal. Pericardium: A prominent pericardial fat pad is present. There is no significant pericardial effusion. Pulmonary arteries: The main pulmonary artery is normal-sized. Systolic pressure is within the normal range. Systemic veins: Inferior vena cava: The vessel is normal in size. There is (>= 50%) respiratory change in the IVC dimension. Measurements Left ventricle Value Ref Aortic valve Value Ref MELODIE, LAX (L) 3.6 cm 4.2 - 5.8 Jaden diam, ED 2.5 cm ----- ESD, LAX 2.6 cm 2.5 - 4.0 Peak v, S 1.1 m/sec ----- FS, LAX 27 % 25 - 43 VTI, S 22.9 cm ----- PW, ED, LAX (H) 1.2 cm 0.6 - 1.0 Mean grad, S 5.0 mm Hg ----- FS 26 % 25 - 43 Peak grad, S 5.0 mm Hg ----- Mid-wall FS 9 % LVOT/AV, VTI ratio 0.7 ----- PW, ED (H) 1.2 cm 0.6 - 1.0 SAMUEL, VTI 2.42 cm^2 ----- E', lat jaden, TDI (L) 7.8 cm/sec >=10.0 SAMUEL, Vmax 2.66 cm^2 --- -- E/e', lat jaden, 5 TDI Mitral valve Value Ref E', med jaden, TDI (L) 5.9 cm/sec >=7.0 Peak E 0.43 m/sec --- -- E/e', med jaden, 7 Peak A 0.35 m/sec ----- TDI Decel time 162 ms ----- E', avg, TDI 6.9 cm/sec Peak E/A ratio 1.2 ----- E/e', avg, TDI 6 <=14 Pulmonic valve Value Ref LVOT Value Ref Peak v, S 0.76 m/sec ----- Diam, S 2.10 cm Peak grad, S 2.0 mm Hg ----- Area 3.5 cm^2 Peak jamie, S 0.85 m/sec Tricuspid valve Value Ref VTI, S 16.0 cm TR peak v 2.1 m/sec <=2.8 Peak grad, S 3 mm Hg Peak RV-RA grad, S 18 mm Hg ----- Mean grad, S 2 mm Hg SV 55 ml Aortic root Value Ref SV/bsa 26 ml/m^2 Root diam 4.1 cm <4.2 Ventricular septum Value Ref Ascending aorta Value Ref IVS, ED (H) 1.2 cm 0.6 - 1.0 AAo AP diam, S 4.3 cm ----- Right ventricle Value Ref Aortic arch Value Ref MELODIE, LAX 2.8 cm Arch diam 2.2 cm ----- MELODIE minor ax, A4C (H) 4.1 cm 1.9 - 3.5 mid Decending aorta Value Ref Pressure, S 21 mm Hg Torsten peak jamie 0.42 m/sec ----- Left atrium Value Ref Pulmonary artery Value Ref AP dim, ES 3.10 cm 3.00 - Pressure, S 19.0 mm Hg ----- 4.00 ML dim, A4C 4.2 cm Inferior vena cava Value Ref SI dim, A4C 4.9 cm Diam 1.9 cm ----- Vol/bsa, ES, 1-p 28 ml/m^2 12 - 37 A4C Right atrium Value Ref SI dim, ES 4.7 cm 3.4 - 5.3 ML dim, ES, A4C 4.1 cm 2.6 - 4.4 Estimated RAP 3 mm Hg Legend: (L) and (H) lg values outside specified reference range. Prepared and electronically signed by Aziza Peterson MD 08/21/2019 11:10
[2019-08-21] MEDS ORDERED: Thiamine INJ* 100 MG in NS 0.9% 50 ML* 50 ML IV SCH (12:00)
[2019-08-21] MEDS ORDERED: Folic Acid IV* 1 MG/0.2 ML SYRINGE IV SCH (12:00)
[2019-08-21] MEDS: Insulin LISPRO* 1 UNITS UNIT SUBCUT SCH ×3 (12:21→21:03)
[2019-08-21] MEDS: D5W 1/2 NS KCl 20 Meq 1000 ML* 1,000 ML IV SCH ×3 (12:24→22:26)
[2019-08-21 13:24] LABS: Troponin I 0.16 ng/mL (<0.03)
--- NOTE | 2019-08-21 14:06 | PN ---
Progress Note - Progress Note Date of Service: 08/21/19 Note: Patient was admitted overnight for AMS and seizure. He was found to have glucose 700. Glucose has been controlled with insulin infusion, and he was transitioned to sliding scale this morning. He was started on bipap in the ED which seemed to help his mental status, however he became somnolent again after taking him off bipap. In the ICU he was on bipap this morning. ABG showed pCO2 47 and paO2 127. He was changed to an Oxymask, and there has been no change in mental status or O2 saturation. Temp Pulse Resp BP Pulse Ox 98.5 F 63 19 108/65 99 08/21/19 12:00 08/21/19 14:01 08/21/19 14:01 08/21/19 14:01 08/21/19 14:01 On exam, he is somnolent. He opens his eyes briefly to voice. He moves all extremities equally and spontaneously. He localizes to pain, and was trying to remove the bipap mask. Heart is regular rate and rhythm. Lungs are clear, no accessory muscle use. Abdomen is soft and nondistended. Extremites are warm and no pedal edema. LABS: WBC is elevated 18.5 (~13 on admission). Cr is trending down to 1.38 from 1.68 at admission. Troponin is trending down to 0.16 from 0.22. Glucose has been <250 since infusion was turned off. IMPRESSION: 79M with altered mental status and seizure en route to hospital. Seizure due to hyperosomolar nonketotic state vs alcohol withdrawal Hyperosmolar nonketotic state, improving Acute hypercapnic respiratory failure, now resolved Type 2 DM Mild troponin elevation Atrial fibrillation SEVERIANO, improving Possible alcohol withdrawal HTN, stable Hyperlipidemia, stable Lactic acidosis, resolved Leukocytosis PLAN: Dr Bowling has seen the patient. Plan for EEG today. Also started on maintenance Keppra. Thiamine and folate. Will check fingersticks q4h and cover with sliding scale insulin WAM protocol. Unclear what baseline alcohol intake is. Ativan prn. DVT ppx: SQH NPO due to mental status. D5-1/2NS-20K for maintenance. Zimmer for accurate I&Os If he remains stable overnight, plan for transfer to floor tomorrow.
[2019-08-21] MEDS: levETIRAcetam 1000MG IVPREMIX* 1,000 MG/100 ML BAG IVPB SCH (15:17)
--- NOTE | 2019-08-21 15:53 | CONS ---
NEUROLOGY CONSULTATION: DATE OF CONSULT: 08/21/19 LOCATION: He is in the ICU bed 16. REFERRING PHYSICIAN: Dr. Lancaster. CHIEF COMPLAINT: Seizure, unresponsiveness. HISTORY OF PRESENT ILLNESS: Negro Stevenson is a 79-year-old man who presented to the [facility], brought in by emergency medical personnel. History is entirely from the medical record. He appar ently was found by his roommate in an altered mental state and an ambulance was called. Apparently, he had seizures in the ambulance on the way to the emergency room. In the emergency room, he receive d IV diazepam and was given IV Keppra 1000 mg. He was also given IV lorazepam. His blood sugar was markedly elevated when he presented at 703. He was put on an insulin drip. His blood glucose has co me down to 212 earlier this morning. He continues to be unresponsive. PAST MEDICAL HISTORY: Minimally available. He apparently moved to this area from [place] in recent months. He has a history of diabetes which is clearly poorly controlled, also history of hypertensio n. MEDICATIONS: Reportedly at admission included: 1. Aspirin 81 mg per day. 2. Atenolol 50 mg p.o. daily. 3. Atorvastatin 80 mg p.o. daily. 4. Finasteride 5 mg p.o. daily. 5. Glipizide 5 mg p.o. daily. 6. Lisinopril 10 mg p.o. daily. ALLERGIES: According to computer records, he does not have any drug allergies. REVIEW OF SYSTEMS: Review of systems is not possible as the patient is unresponsive. PHYSICAL EXAM: He is a dishevelled man, who appears well hydrated. Most recent temperature in the ecords 98.5 by temporal scan, blood pressure 93/63, heart rate is in the 60s and regular. Respirator y rate is 18 and oxygen saturation is 95% on supplemental oxygen by a nonrebreather mask. Head appears atraumatic. Carotid pulses are weakly felt, but present. I do not hear any bruits. Th ere are no cardiac murmurs. On neurological exam, pupils react weakly to light from 3 down to 2.5 mm. Eye movements are slightly divergent and I could not elicit vestibulo-ocular reflexes. There is a weak nasal tickle response bi laterally. There is a symmetrical facial grimace response to deep nail bed pressure. He responds sy mmetrically to deep nail bed pressure in both upper extremities and both lower extremities. He makes some restless movements. There is no clonic or tonic activity. Other than a mild grunting to exter nal pressure, he does not vocalize. Plantar responses are flexor bilaterally. DIAGNOSTIC STUDIES/LAB DATA: Laboratory data includes a CBC with an elevated white blood cell count at 18.5 with left shift of 17 neutrophils. Hemoglobin and platelet count are normal. Arterial blood gas on admission notable for pH 7.38, pCO2 of 47, pO2 of 127 on supplemental oxygen. Chemistries no table for a creatinine of 1.38 and most recent blood glucose 212. Hemoglobin A1c is 10.6%. Magnesium is low at 1.4 early this morning and total bilirubin elevated at 2.4. Liver enzymes are normal. Tro ponins elevated at 0.16. Urinalysis is notable for 3+ blood, 1+ protein, 3+ glucose. Serum alcohol on admission was elevated at 11 mg/dL. Urine tox screen was otherwise negative. IMPRESSION AND PLAN: Impression is that of new onset seizures in a patient with severe hyperglycemia . The seizures may be due to the metabolic derangements alone, but could be due to another factor as well. Recommend maintenance Keppra and put an order for 1000 mg q.12 hours IV. I will arrange for an EEG. If he continues to not become more responsive especially if he develops a fever, then I woul d recommend a lumbar puncture. I will put in an order to check an ammonia level as well. We will co wild to follow him along with you. [id number]/[facility] #: [id number]
[2019-08-22] MEDS: Insulin LISPRO* 1 UNITS UNIT SUBCUT SCH ×5 (00:38→17:30)
[2019-08-22] MEDS: levETIRAcetam 1000MG IVPREMIX* 1,000 MG/100 ML BAG IVPB SCH ×2 (02:20→16:10)
[2019-08-22 04:22] LABS: ABS Basophils 0.1 10^3/ul (0-0.2); ABS Lymphocytes 1.5 10^3/ul (1.0-4.8); ABS Monocytes 0.6 10^3/ul (0-0.8); ABS Neutrophils 7.4 10^3/ul (1.5-7.7); Eosinophil % 0.1 %; Hematocrit 38 % (42-52); Hemoglobin 12.8 g/dL (14.0-18.0); Lymphocyte % 15.8 %; Mean Corpuscular HGB Conc 34 g/dL (31-36); Mean Corpuscular Hemoglobin 29 pg (27-31); Mean Corpuscular Volume 86 fL (80-94); Mean Platelet Volume 8.5 fL (7.4-10.4); Platelet Count 157 10^3/uL (150-450); Red Blood Count 4.39 10^6 /uL (4.18-5.48); Red Cell Distribution Width 15 % (10-15); White Blood Count 9.6 10^3/uL (3.5-10.8)
[2019-08-22 04:37] LABS: BUN/Creatinine Ratio 15.4 (8-20); Calcium 8.2 mg/dL (8.6-10.3); EGFR African American 64.4 (>60); EGFR Non-African American 53.3 (>60); Magnesium 1.6 mg/dL (1.9-2.7); Potassium 3.3 mmol/L (3.5-5.0)
[2019-08-22] MEDS: Heparin VIAL(*) 5000 UNITS/ML VIAL (FIVE THOUSAND) SUBCUT SCH ×2 (06:10→16:10)
[2019-08-22] MEDS ORDERED: Magnesium Sulfate 2 GM IV* 2 GM/50 ML BAG IVPB ONE (07:55)
[2019-08-22] MEDS ORDERED: KCL 20 MEQ/100 ML IVPREMIX* 20 MEQ/100 ML BAG IV ONE (07:55)
[2019-08-22] MEDS ORDERED: Potassium Chlor TAB* 20 MEQ TAB.ER PO ONE (07:55)
[2019-08-22] MEDS: Thiamine TAB* 100 MG TAB PO SCH (08:23)
[2019-08-22] MEDS: Folic Acid TAB* 1 MG PO SCH (08:23)
[2019-08-22] MEDS: Multivitamins/Minerals TAB PO SCH (08:23)
--- NOTE | 2019-08-22 08:46 | EEG ---
ELECTROENCEPHALOGRAM REPORT: DATE OF STUDY: 08/21/19 LOCATION: He is in intensive care unit. REFERRING PROVIDER: Dr. Bowling. CLINICAL PROBLEM: History of severe hyperglycemia, the patient remains unresponsive after correction of blood glucose. MEDICATIONS: Include: 1. Lisinopril. 2. Glipizide. 3. Finasteride. 4. Atorvastatin. 5. Atenolol. 6. Insulin. REPORT: This 19-channel EEG is remarkable for background rhythms at the onset of tracing consisting of diffuse slowing in the delta range. There is superimposed fairly abundant beta and theta rhythms. The patient is unresponsive. There is 1 episode described as a right foot jerk without change in the above described rhythms. Sleep stages are not recognized. Activation procedures were not attempted. Later in the recording, the patient opens eyes, but does not follow commands. Again, no change in background activity. There are no other clinical events described. There are no focal or epileptiform discharges. CLINICAL IMPRESSION: Abnormal EEG due to generalized slowing and disorganization of background rhythms. There are no epileptiform features to this recording. [id number]/[facility] #: [id number] MTDD
--- NOTE | 2019-08-22 09:58 | PN ---
Date of Service: 08/22/19 Critical Care Services: Patient is awake this morning. He denies chest pain, abdominal pain, or shortness of breath. He is not hungry yet this morning but he did take medications without issue. Has been afebrile, normotensive. Intermittently appears to be in a fib. He does not really remember what happened when he was at home prior to being brought to the hospital. He denies any alcohol use, although alcohol level was 11 at admission. Vital Signs: Temp Pulse Resp BP SpO2 FiO2 98.9 F 59 19 106/68 96 40 08/22/19 07:30 08/22/19 09:00 08/22/19 09:00 08/22/19 09:00 08/22/19 09:00 08/20 07:32 Physical Exam: Gen: NAD, sitting up in bed with eyes closed. HEENT: Normocephalic and atraumatic. Pupils are equal. Appears to have mild left sided facial droop, unclear if that is his baseline. Lungs: Clear, no accessory muscle use on room air. Cardiac: Mild bradycardia but regular. Abdomen: Soft, nontender, nondistended. Extremities: Warm, no pedal edema. Neuro: Awakens easily. Oriented to person and place. Thought it was August 2018. Speech is clear. Moves all extremities equally. Fluid Balance (Past 24 Hours): I= O= Net Intake & Output 08/20/19 08/21/19 08/22/19 08/23/19 06:59 06:59 06:59 06:59 Intake Total 3315.3 2160 1085 Output Total 355 445 Balance 2960.3 1715 1085 Weight 190 lb Intake: IV Fluids 3017.6 2160 965 0.45% NS c 20K 913 1034 D5W 1/2 NS 20 meq KCL 976 965 NS 4.6 150 IVPB 270 KCl 105 Keppra 105 Mag 60 Medicated IV 27.7 Insulin 27.7 Oral 0 120 Output: Zimmer 305 445 Residual 50 Coude 16 Fr 50 Labs: Laboratory Results - last 24 hr 08/21/19 08/21/19 08/21/19 04:46 10:14 10:45 WBC RBC Hgb Hct MCV MCH MCHC RDW Plt Count MPV Neut % (Auto) Lymph % (Auto) Gila % (Auto) Eos % (Auto) Baso % (Auto) Absolute Neuts (auto) Absolute Lymphs (auto) Absolute Monos (auto) Absolute Eos (auto) Absolute Basos (auto) Absolute Nucleated RBC Nucleated RBC % Sodium Potassium Chloride Carbon Dioxide Anion Gap BUN Creatinine Est GFR ( Amer) Est GFR (Non-Af Amer) BUN/Creatinine Ratio Glucose POC Glucose (mg/dL) 236 H Hemoglobin A1c 10.6 H Calcium Magnesium Ammonia Troponin I 0.16 H* 08/21/19 08/21/19 08/21/19 11:59 14:00 15:21 WBC RBC Hgb Hct MCV MCH MCHC RDW Plt Count MPV Neut % (Auto) Lymph % (Auto) Gila % (Auto) Eos % (Auto) Baso % (Auto) Absolute Neuts (auto) Absolute Lymphs (auto) Absolute Monos (auto) Absolute Eos (auto) Absolute Basos (auto) Absolute Nucleated RBC Nucleated RBC % Sodium Potassium Chloride Carbon Dioxide Anion Gap BUN Creatinine Est GFR ( Amer) Est GFR (Non-Af Amer) BUN/Creatinine Ratio Glucose POC Glucose (mg/dL) 240 H 208 H Hemoglobin A1c Calcium Magnesium Ammonia 59 H Troponin I 08/21/19 08/21/19 08/22/19 20:13 23:56 03:43 WBC RBC Hgb Hct MCV MCH MCHC RDW Plt Count MPV Neut % (Auto) Lymph % (Auto) Gila % (Auto) Eos % (Auto) Baso % (Auto) Absolute Neuts (auto) Absolute Lymphs (auto) Absolute Monos (auto) Absolute Eos (auto) Absolute Basos (auto) Absolute Nucleated RBC Nucleated RBC % Sodium Potassium Chloride Carbon Dioxide Anion Gap BUN Creatinine Est GFR ( Amer) Est GFR (Non-Af Amer) BUN/Creatinine Ratio Glucose POC Glucose (mg/dL) 226 H 152 H 163 H Hemoglobin A1c Calcium Magnesium Ammonia Troponin I 08/22/19 08/22/19 08/22/19 04:07 04:07 08:23 WBC 9.6 RBC 4.39 Hgb 12.8 L Hct 38 L MCV 86 MCH 29 MCHC 34 RDW 15 Plt Count 157 MPV 8.5 Neut % (Auto) 77.6 Lymph % (Auto) 15.8 Gila % (Auto) 6.0 Eos % (Auto) 0.1 Baso % (Auto) 0.5 Absolute Neuts (auto) 7.4 Absolute Lymphs (auto) 1.5 Absolute Monos (auto) 0.6 Absolute Eos (auto) 0.0 Absolute Basos (auto) 0.1 Absolute Nucleated RBC 0.0 Nucleated RBC % 0.0 Sodium 137 Potassium 3.3 L Chloride 104 Carbon Dioxide 29 Anion Gap 4 BUN 20 Creatinine 1.30 H Est GFR ( Amer) 64.4 Est GFR (Non-Af Amer) 53.3 BUN/Creatinine Ratio 15.4 Glucose 156 H POC Glucose (mg/dL) 165 H Hemoglobin A1c Calcium 8.2 L Magnesium 1.6 L Ammonia Troponin I Studies: EEG- generalized slowing, no epileptiform signals. Nutrition: NPO Impression: 79M with altered mental status and seizure en route to hospital. Seizure due to hyperosomolar nonketotic state vs alcohol withdrawal Hyperosmolar nonketotic state, improving Acute hypercapnic respiratory failure, now resolved Type 2 DM Mild troponin elevation, improving Possible atrial fibrillation SEVERIANO, improving Possible alcohol withdrawal HTN, stable Hyperlipidemia, stable Lactic acidosis, resolved Leukocytosis, resolved Hypokalemia Plan: Seizure- Mental status improved significantly from yesterday. Neurology following. Continue maintenance Keppra dose. Continue folate, thiamine, MVT. DM type 2- Glucose now well-controlled. Continue sliding scale. Likely needs diabetic education, he was on glipizide only and he does not check fingersticks at home. Possible paroxysmal atrial fibrillation vs flutter- Appears to have regular rhythm this morning but did have EKG on admission that showed atrial flutter. Continue to monitor. Will hold off on anticoagulation for today. SEVERIANO- improving, Cr 1.3 from 1.38 yesterday and 1.68 on admission. Unknown baseline creatinine. Continue to trend. Zimmer removed this morning. Hypokalemia- oral and IV replacement given. Hypomanesemia- IV replacement ordered Possible alcohol withdrawal- patient denies drinking alcohol but serum alcohol 11 at admission. WAM protocol with ativan prn. HTN- currently normotensive and HR in 50s-60s, holding home atenolol and lisinopril. Hyperlipidemia- restart home atorvastatin, ASA BPH- Restart home finasteride DVT ppx- SQH Code status- full code Dispo- transfer to floor Status- Stable
--- NOTE | 2019-08-22 11:19 | PN ---
Subjective Date of Service: 08/22/19 Length of Stay: 1 Days Neurology is following for confusion and seizures. Interval History: The patient is awake and conversing. He seems drowsy but answers appropriately. He is unaware of what happened and what caused the hospitalization. He reports taking a diabetic medication regularly. He denied any alcohol abuse although he had CT head without contrast on 08/20/19: No acute intracranial abnormality. CTA head and neck 08/20/19: No significant stenosis or occlusion. TTE completed on 08/21/19: EF: 55-60%. Review of Systems: Denied CP, SOB, or palpitations. Objective Active Medications: Aspirin (Aspirin 81 Mg Chew Tab*) 81 mg PO DAILY [facility] Atorvastatin Calcium (Lipitor*) 80 mg PO 1700 [facility] Dextrose (D50w Syringe 50 Ml*) 12.5 gm IV PUSH .FOR FS < 60 - SS PRN PRN Reason: FS < 60 Finasteride (Proscar Tab*) 5 mg PO DAILY [facility] Folic Acid (Folvite Tab*) 1 mg PO DAILY [facility] Last Admin: 08/22/19 08:23 Dose: 1 mg Heparin Sodium (Porcine) (Heparin Vial(*)) 5,000 units SUBCUT Q8HR [facility] Last Admin: 08/22/19 06:10 Dose: 5,000 units Levetiracetam (Keppra Iv Premix*) 1,000 mg in 100 mls @ 400 mls/hr IVPB Q12H [facility] Last Admin: 08/22/19 02:20 Dose: 400 mls/hr Insulin Human Lispro (Humalog*) 0 units SUBCUT AC [facility]; Protocol Last Admin: 08/22/19 08:30 Dose: 2 units Lorazepam (Ativan Inj*) 0 - 3 mg IV PUSH .PER [facility] PROTOCOL [facility]; Protocol Miscellaneous (Ativan Pyxis Jolly) 1 ea N/A .ATIVAN IV JOLLY PRN PRN Reason: PYXIS JOLLY Multivitamins/Minerals (Theragran/Minerals Tab*) 1 tab PO DAILY [facility] Last Admin: 08/22/19 08:23 Dose: 1 tab Thiamine HCl (Vitamin B-1 Tab*) 100 mg PO DAILY [facility] Last Admin: 08/22/19 08:23 Dose: 100 mg Vital Signs 08/21/19 08/21/19 08/21/19 11:00 11:01 12:00 Temperature 98.5 F Pulse Rate 68 67 76 Respiratory 20 20 19 Rate Blood Pressure 105/71 121/85 (mmHg) O2 Sat by Pulse 100 97 98 Oximetry 08/21/19 08/21/19 08/21/19 13:00 14:00 14:01 Temperature Pulse Rate 66 65 63 Respiratory 18 19 19 Rate Blood Pressure 93/63 108/65 (mmHg) O2 Sat by Pulse 95 100 99 Oximetry 08/21/19 08/21/19 08/21/19 15:00 15:01 16:00 Temperature 97.7 F Pulse Rate 72 71 77 Respiratory 34 28 23 Rate Blood Pressure 119/97 116/70 (mmHg) O2 Sat by Pulse 96 95 98 Oximetry 08/21/19 08/21/19 08/21/19 17:00 18:00 18:11 Temperature Pulse Rate 73 63 60 Respiratory 25 19 19 Rate Blood Pressure 90/61 (mmHg) O2 Sat by Pulse 96 97 98 Oximetry 08/21/19 08/21/19 08/21/19 18:15 18:30 18:45 Temperature Pulse Rate 61 62 60 Respiratory 18 19 19 Rate Blood Pressure 100/61 101/61 103/62 (mmHg) O2 Sat by Pulse 98 98 98 Oximetry 08/21/19 08/21/19 08/21/19 19:00 19:15 19:31 Temperature 97.9 F Pulse Rate 63 60 71 Respiratory 20 18 37 Rate Blood Pressure 106/66 122/73 119/74 (mmHg) O2 Sat by Pulse 97 96 98 Oximetry 08/21/19 08/21/19 08/21/19 19:45 19:49 20:00 Temperature 97.9 F Pulse Rate 66 74 Respiratory 29 23 Rate Blood Pressure 108/70 103/60 (mmHg) O2 Sat by Pulse 97 94 Oximetry 08/21/19 08/21/19 08/21/19 20:16 20:30 20:46 Temperature Pulse Rate 72 75 74 Respiratory Rate Blood Pressure 118/72 115/71 129/86 (mmHg) O2 Sat by Pulse 96 96 97 Oximetry 08/21/19 08/21/19 08/21/19 21:00 21:01 21:15 Temperature Pulse Rate 72 71 68 Respiratory 23 12 16 Rate Blood Pressure 113/67 134/66 (mmHg) O2 Sat by Pulse 96 100 Oximetry 08/21/19 08/21/19 08/21/19 21:30 21:46 21:51 Temperature 96.7 F Pulse Rate 63 76 Respiratory 18 19 Rate Blood Pressure 109/67 132/87 (mmHg) O2 Sat by Pulse 99 93 Oximetry 08/21/19 08/21/19 08/21/19 21:52 22:00 22:31 Temperature Pulse Rate 70 67 Respiratory 16 20 22 Rate Blood Pressure 126/101 104/73 (mmHg) O2 Sat by Pulse 97 100 Oximetry 08/21/19 08/21/19 08/21/19 22:45 23:00 23:15 Temperature Pulse Rate 67 55 62 Respiratory 19 19 18 Rate Blood Pressure 107/69 91/55 87/54 (mmHg) O2 Sat by Pulse 99 98 98 Oximetry 08/21/19 08/21/19 08/22/19 23:30 23:45 00:00 Temperature Pulse Rate 62 59 67 Respiratory 18 18 16 Rate Blood Pressure 89/52 90/58 (mmHg) O2 Sat by Pulse 98 98 98 Oximetry 08/22/19 08/22/19 08/22/19 00:01 00:06 00:15 Temperature Pulse Rate 71 68 58 Respiratory 17 19 18 Rate Blood Pressure 137/98 106/65 (mmHg) O2 Sat by Pulse 100 100 100 Oximetry 08/22/19 08/22/19 08/22/19 00:30 00:45 01:00 Temperature Pulse Rate 64 66 55 Respiratory 18 19 19 Rate Blood Pressure 101/59 87/53 98/61 (mmHg) O2 Sat by Pulse 100 100 100 Oximetry 08/22/19 08/22/19 08/22/19 01:15 01:31 01:51 Temperature Pulse Rate 56 62 66 Respiratory 17 18 22 Rate Blood Pressure 102/59 122/73 (mmHg) O2 Sat by Pulse 100 100 100 Oximetry 08/22/19 08/22/19 08/22/19 01:57 02:00 02:30 Temperature Pulse Rate 62 62 61 Respiratory 19 20 18 Rate Blood Pressure 132/75 122/81 (mmHg) O2 Sat by Pulse 100 100 98 Oximetry 08/22/19 08/22/19 08/22/19 03:00 03:23 03:30 Temperature 99.1 F Pulse Rate 61 63 Respiratory 20 17 Rate Blood Pressure 107/62 93/56 (mmHg) O2 Sat by Pulse 100 99 Oximetry 08/22/19 08/22/19 08/22/19 04:00 05:00 05:01 Temperature Pulse Rate 61 55 60 Respiratory 19 18 20 Rate Blood Pressure 108/64 115/76 (mmHg) O2 Sat by Pulse 98 96 93 Oximetry 08/22/19 08/22/19 08/22/19 06:00 07:00 07:30 Temperature 98.9 F Pulse Rate 61 59 Respiratory 18 21 Rate Blood Pressure 104/60 113/68 (mmHg) O2 Sat by Pulse 98 100 Oximetry 08/22/19 08/22/19 08/22/19 08:00 09:00 10:00 Temperature Pulse Rate 54 59 60 Respiratory 19 19 19 Rate Blood Pressure 103/67 106/68 115/72 (mmHg) O2 Sat by Pulse 96 96 99 Oximetry Intake and Output Last 24 Hours 08/20/19 08/21/19 08/22/19 08/23/19 06:59 06:59 06:59 06:59 Intake Total 3315.3 2160 1085 Output Total 355 445 Balance 2960.3 1715 1085 Weight 190 lb Intake: IV Fluids 3017.6 2160 965 0.45% NS c 20K 913 1034 D5W 1/2 NS 20 meq KCL 976 965 NS 4.6 150 IVPB 270 KCl 105 Keppra 105 Mag 60 Medicated IV 27.7 Insulin 27.7 Oral 0 120 Output: Zimmer 305 445 Residual 50 Coude 16 Fr 50 Oxygen Devices in Use Now: Simple Face Mask Neurology Exam: General: Disheveled ill appearing elderly man in no distress. HEENT: Normocephelic/atraumatic, sclera anicteric, mucous membranes moist Neck: Supple Chest: Clear to auscultation bilaterally Cardiovascular: Regular rate and rhythm without murmurs, rubs, gallops Extremities: No clubbing, cyanosis, or edema Skin: bruising of his distal extremities. Neurological Findings: Awake, alert, and oriented to person, place, and year. Mild psychomotor slowing. No aphasia. Cranial Nerve: PERRL, EOM intact, VFF, no nystagmus, face symmetric bilaterally , facial sensation intact. Motor: s/s throughout, proximal and distal extremities x4 tone/bulk normal Sensation: distal to proximal sensory gradient demarcated at the shins bilaterally. Deep Tendon Reflex: reduced throughout, absent at the ankles bilaterally. Finger to nose, rapid alternating movements intact without tremor, no dysdiadochokinesia Gait: deferred in the ICU Result Diagrams: 08/22/19 04:07 08/22/19 04:07 Microbiology and Other Data: Microbiology 08/20/19 23:10 Urine Culture - Final Urine 08/20/19 22:04 Aerobic Blood Culture - Preliminary Blood Venous No Growth Day 1 Anaerobic Blood Culture - Preliminary No Growth Day 1 08/20/19 22:10 Aerobic Blood Culture - Preliminary Blood Venous No Growth Day 1 Anaerobic Blood Culture - Preliminary No Growth Day 1 Assessment/Plan Mr. Stevenson is a 79-year-old with hypertension, DMII, dyslipidemia, who presented to [facility] with episode of altered mental status on 08/21/19. He was reported to have a seizure en route to the ED and another seizure in the ED. He was found to be in hyperosmolar hyperglycemic nonketotic state with blood glucose of >700. The patient was loaded with levetirecetam. He also developed acute hypercapnic respiratory failure, severe lactic acidosis, hypomagnesemia, SEVERIANO, and possible atrial fibrillation noted on EKG. 1. Provoked seizures in the setting of acute metabolic encephalopathy. He is no longer having seizures. Please reduce the levetirecetam to 500 mg twice daily. Convert the IV to PO dosing. Continue levetirecetam for a total of 14 days. Wean off the levetirecetam by reducing the dose by 250 mg daily until completely off the medication (250/500 on 09/03, 250/250 on 09/04, 250 on 09/05, then completely discontinue). If he has unprovoked recurrent seizures off levetirecetam, then he will need to resume levetirecetam fdc. At this time, the patient's seizures are provoked by his severe metabolic derangement that have improved since admission. The patient is slowly recovering and continues to show mild encephalopathy. I expect this will improve with time. He has no lateralizing neurological deficits on examination to suspect a stroke, although stroke can certainly be associated with hyperosmolar hyperglycemic state. Unless he develops new focal neurological deficits, hold off on obtaining a brain MRI. Please provide the patient with information regarding diabetic education 2. Questionable atrial fibrillation. Defer management to the primary team. Please contact us for any questions.
[2019-08-22] MEDS: Aspirin 81 mg CHEW TAB* 81 MG TAB.CHEW PO SCH (12:29)
[2019-08-22] MEDS: Finasteride TAB* 5 MG PO SCH (12:29)
[2019-08-22] MEDS: Atorvastatin* 80 MG TAB PO SCH (17:29)
[2019-08-22] MEDS: Insulin GLARGINE(*) 1 UNITS UNIT SUBCUT SCH (17:30)
--- NOTE | 2019-08-22 19:22 | PN ---
Hospitalist Progress Note Date of Service: 08/22/19 Transferred from ICU to today. Given the finding of HHS on admission it is recommended that pt begin insulin therapy after resolution of HHS. Having better glucose control. Will start lantus at 15un q24hr and assess response. Pt will need education and encouragement about how to administer this at home.
[2019-08-23] MEDS: Heparin VIAL(*) 5000 UNITS/ML VIAL (FIVE THOUSAND) SUBCUT SCH ×4 (00:28→21:31)
[2019-08-23] MEDS: levETIRAcetam 1000MG IVPREMIX* 1,000 MG/100 ML BAG IVPB SCH (02:19)
[2019-08-23 06:45] LABS: ABS Basophils 0.1 10^3/ul (0-0.2); ABS Lymphocytes 1.5 10^3/ul (1.0-4.8); ABS Monocytes 0.7 10^3/ul (0-0.8); Eosinophil % 0.5 %; Hematocrit 39 % (42-52); Hemoglobin 13.2 g/dL (14.0-18.0); Lymphocyte % 18.1 %; Mean Corpuscular HGB Conc 34 g/dL (31-36); Mean Corpuscular Hemoglobin 29 pg (27-31); Mean Corpuscular Volume 87 fL (80-94); Mean Platelet Volume 8.6 fL (7.4-10.4); Platelet Count 169 10^3/uL (150-450); Red Blood Count 4.51 10^6 /uL (4.18-5.48); Red Cell Distribution Width 15 % (10-15); White Blood Count 8.4 10^3/uL (3.5-10.8)
[2019-08-23 06:58] LABS: BUN/Creatinine Ratio 19.7 (8-20); Calcium 8.7 mg/dL (8.6-10.3); EGFR African American 63.3 (>60); EGFR Non-African American 52.3 (>60); Magnesium 1.8 mg/dL (1.9-2.7); Potassium 4.3 mmol/L (3.5-5.0)
[2019-08-23] MEDS ORDERED: Magnesium Oxide TAB* 400 MG PO ONE ×2 (07:29→18:13)
[2019-08-23] MEDS: Multivitamins/Minerals TAB PO SCH (08:22)
[2019-08-23] MEDS: Finasteride TAB* 5 MG PO SCH (08:22)
[2019-08-23] MEDS: Folic Acid TAB* 1 MG PO SCH (08:22)
[2019-08-23] MEDS: Aspirin 81 mg CHEW TAB* 81 MG TAB.CHEW PO SCH (08:22)
[2019-08-23] MEDS: levETIRAcetam TAB* 500 MG PO SCH ×2 (08:22→20:11)
[2019-08-23] MEDS: Thiamine TAB* 100 MG TAB PO SCH (08:22)
[2019-08-23] MEDS: Insulin LISPRO* 1 UNITS UNIT SUBCUT SCH ×3 (08:23→17:20)
[2019-08-23] MEDS: Atorvastatin* 80 MG TAB PO SCH (17:20)
[2019-08-23] MEDS: Insulin GLARGINE(*) 1 UNITS UNIT SUBCUT SCH (17:20)
--- NOTE | 2019-08-23 18:26 | PN ---
Subjective Date of Service: 08/23/19 Interval History: Denies any OLMSTEAD, CP, SOB, abdominal discomfort, numbness/tingling, difficulty with bladder or bowel. Spoke about starting insulin therapy and he states that he has had to give himself injections a long time ago and he believes that he will be able to handle it. Objective Active Medications: Aspirin (Aspirin 81 Mg Chew Tab*) 81 mg PO DAILY [facility] Last Admin: 08/23/19 08:22 Dose: 81 mg Atorvastatin Calcium (Lipitor*) 80 mg PO 1700 [facility] Last Admin: 08/23/19 17:20 Dose: 80 mg Dextrose (D50w Syringe 50 Ml*) 12.5 gm IV PUSH .FOR FS < 60 - SS PRN PRN Reason: FS < 60 Finasteride (Proscar Tab*) 5 mg PO DAILY [facility] Last Admin: 08/23/19 08:22 Dose: 5 mg Folic Acid (Folvite Tab*) 1 mg PO DAILY [facility] Last Admin: 08/23/19 08:22 Dose: 1 mg Heparin Sodium (Porcine) (Heparin Vial(*)) 5,000 units SUBCUT Q8HR [facility] Last Admin: 08/23/19 16:50 Dose: 5,000 units Insulin Glargine (Lantus(*)) 15 units SUBCUT Q24H [facility] Last Admin: 08/23/19 17:20 Dose: 15 units Insulin Human Lispro (Humalog*) 0 units SUBCUT AC [facility]; Protocol Last Admin: 08/23/19 17:20 Dose: 4 units Levetiracetam (Keppra Tab*) 500 mg PO BID [facility] Stop: 09/06/19 08:59 Last Admin: 08/23/19 08:22 Dose: 500 mg Lorazepam (Ativan Inj*) 0 - 3 mg IV PUSH .PER [place] PROTOCOL [facility]; Protocol Magnesium Oxide (Magox 400 Tab*) 400 mg PO ONCE ONE Stop: 08/23/19 18:14 Miscellaneous (Ativan Pyxis Jolly) 1 ea N/A .ATIVAN IV JOLLY PRN PRN Reason: PYXIS JOLLY Multivitamins/Minerals (Theragran/Minerals Tab*) 1 tab PO DAILY [facility] Last Admin: 08/23/19 08:22 Dose: 1 tab Thiamine HCl (Vitamin B-1 Tab*) 100 mg PO DAILY [facility] Last Admin: 08/23/19 08:22 Dose: 100 mg Vital Signs - 8 hr 08/23/19 08/23/19 08/23/19 10:27 12:00 16:00 Temperature 97.9 F 98.4 F 98.2 F Pulse Rate 57 56 84 Respiratory 20 20 17 Rate Blood Pressure 131/70 143/75 117/71 (mmHg) O2 Sat by Pulse 100 100 99 Oximetry Oxygen Devices in Use Now: None Result Diagrams: 08/23/19 06:34 08/23/19 06:34 Microbiology and Other Data: Microbiology 08/20/19 23:10 Urine Culture - Final Urine 08/20/19 22:04 Aerobic Blood Culture - Preliminary Blood Venous No Growth Day 1 Anaerobic Blood Culture - Preliminary No Growth Day 1 08/20/19 22:10 Aerobic Blood Culture - Preliminary Blood Venous No Growth Day 1 Anaerobic Blood Culture - Preliminary No Growth Day 1 Assess/Plan/Problems-Billing Assessment: - Patient Problems (1) Seizures Current Visit: Yes Status: Acute Code(s): R56.9 - UNSPECIFIED CONVULSIONS SNOMED Code(s): 32097523 Comment: Seizures witnessed via EMS as well as seizure in ED. started on Keppra per neurology, will titrate off as his seizures were very likely provoked by metabolic derrangement with HHS Has not had any further seizures Keppra 500mg PO BID X14 days, then decrease by 250mg daily until off - per , started PO dosing on 08/22 Continue precautions (2) Hyperosmolar non-ketotic state due to type 2 diabetes mellitus Current Visit: Yes Status: Acute Code(s): E11.00 - TYPE 2 DIAB W HYPROSM W/ O NONKET HYPRGLY-HYPROS COMA ([facility]) SNOMED Code(s): 973026664 Comment: Has resolved Starting patient on insulin therapy, he believes he will be able to manage this at home Diabetes education Increase lantus to 18un q24hr (3) Hypokalemia Current Visit: Yes Status: Acute Code(s): E87.6 - HYPOKALEMIA SNOMED Code( s): 89660309 Comment: resolved (4) Hypomagnesemia Current Visit: Yes Status: Acute Code(s): E83.42 - HYPOMAGNESEMIA SNOMED Code(s): 504181127 Comment: 1.8 08/22 Mag Ox 400mg X1 ordered labs in a.m. (5) HTN (hypertension) Current Visit: Yes Status: Acute Code(s): I10 - ESSENTIAL (PRIMARY) HYPERTENSION SNOMED Code(s): 23917945 Comment: stable with mild elevations at times Not on anti-hypertensives (6) Chronic kidney disease Current Visit: Yes Status: Acute Code(s): N18.9 - CHRONIC KIDNEY DISEASE, UNSPECIFIED SNOMED Code(s): 504841262 Comment: From notes appears that there was a thought of pt having low urine output over night vs retention and then with some bloody output but sounds as if there were traumatic attempts at catheter insertions Did have a small amount measured documented output today as well as 2 episodes of urinary incontinence per nursing Will order strict I+O for more accurate and consistent measurement, if he continues with bloody output or low output or retention will appreciate input from urology, reasonable to monitor overnight Has documented low eGFR and high creatinine back in (7) Arrhythmia Current Visit: Yes Status: Acute Code(s): I49.9 - CARDIAC ARRHYTHMIA, UNSPECIFIED SNOMED Code(s): 531925141 Comment: possible AFib on arrival and then ekg exhibiting AFlutter soon after while in the ICU. Unknown if he has a hx of this arrhythmia. Likely due to significant metabolic derrangement with HHS. Will continue to monitor and replete K and Mg as needed labs in a.m. (8) HLD (hyperlipidemia) Current Visit: Yes Status: Acute Code(s): E78.5 - HYPERLIPIDEMIA, UNSPECIFIED SNOMED Code(s): 90760266 Comment: Continue statin (9) BPH (benign prostatic hyperplasia) Current Visit: Yes Status: Acute Code(s): N40.0 - BENIGN PROSTATIC HYPERPLASIA WITHOUT LOWER URINRY TRACT SYMP SNOMED Code(s): 284312983 Comment: continue finasteride (10) DVT prophylaxis Current Visit: Yes Status: Acute Code(s): Z29.9 - ENCOUNTER FOR PROPHYLACTIC MEASURES, UNSPECIFIED SNOMED Code(s): 342755354 (11) Full code status Current Visit: Yes Status: Acute Code(s): Z78.9 - OTHER SPECIFIED HEALTH STATUS SNOMED Code(s): 567283211
[2019-08-23] MEDS ORDERED: Insulin GLARGINE(*) 1 UNITS UNIT SUBCUT ONE (19:42)
[2019-08-23] MEDS ORDERED: Insulin GLARGINE(*) 1 UNITS UNIT SUBCUT SCH (20:00)
[2019-08-24] MEDS: Heparin VIAL(*) 5000 UNITS/ML VIAL (FIVE THOUSAND) SUBCUT SCH (05:52)
[2019-08-24 07:59] LABS: ABS Basophils 0.1 10^3/ul (0-0.2); ABS Eosinophils 0.1 10^3/ul (0-0.6); ABS Lymphocytes 1.3 10^3/ul (1.0-4.8); ABS Monocytes 0.7 10^3/ul (0-0.8); ABS Neutrophils 5.6 10^3/ul (1.5-7.7); Eosinophil % 0.8 %; Hematocrit 38 % (42-52); Lymphocyte % 16.3 %; Mean Corpuscular HGB Conc 35 g/dL (31-36); Mean Corpuscular Hemoglobin 30 pg (27-31); Mean Corpuscular Volume 87 fL (80-94); Mean Platelet Volume 8.7 fL (7.4-10.4); Platelet Count 179 10^3/uL (150-450); Red Blood Count 4.36 10^6 /uL (4.18-5.48); Red Cell Distribution Width 15 % (10-15); White Blood Count 7.7 10^3/uL (3.5-10.8)
[2019-08-24] MEDS: Insulin LISPRO* 1 UNITS UNIT SUBCUT SCH ×3 (08:03→16:59)
[2019-08-24 08:15] LABS: BUN/Creatinine Ratio 18.3 (8-20); Calcium 8.5 mg/dL (8.6-10.3); EGFR African American 63.9 (>60); EGFR Non-African American 52.8 (>60); Magnesium 1.7 mg/dL (1.9-2.7); Potassium 3.6 mmol/L (3.5-5.0)
[2019-08-24] MEDS ORDERED: Magnesium Sulfate IV* 3 GM in NS 0.9% 100 ML* 100 ML IVPB ONE (09:00)
[2019-08-24] MEDS ORDERED: Potassium Chlor TAB* 20 MEQ TAB.ER PO ONE (09:00)
--- NOTE | 2019-08-24 09:35 | PN ---
Subjective Date of Service: 08/24/19 - CC: elevated trops, admitted with DKA/Seizures Interval History: See full cardiology consult dictated by MEDIA RELATIONS SPECIALIST Amira Amin I personally saw and examined the patient. No CP, SOB now or ever per patient. Medications Active Medications: Apixaban (Eliquis*) 5 mg PO BID [facility] Atorvastatin Calcium (Lipitor*) 80 mg PO 1700 [facility] Last Admin: 08/23/19 17:20 Dose: 80 mg Dextrose (D50w Syringe 50 Ml*) 12.5 gm IV PUSH .FOR FS < 60 - SS PRN PRN Reason: FS < 60 Finasteride (Proscar Tab*) 5 mg PO DAILY [facility] Last Admin: 08/23/19 08:22 Dose: 5 mg Folic Acid (Folvite Tab*) 1 mg PO DAILY [facility] Last Admin: 08/23/19 08:22 Dose: 1 mg Magnesium Sulfate 3 gm/ Sodium (Chloride) 106 mls @ 53 mls/hr IVPB ONCE ONE Stop: 08/24/19 10:59 Insulin Glargine (Lantus(*)) 18 units SUBCUT Q24H [facility] Insulin Human Lispro (Humalog*) 0 units SUBCUT AC [facility]; Protocol Last Admin: 08/24/19 08:03 Dose: Not Given Levetiracetam (Keppra Tab*) 500 mg PO BID [facility] Stop: 09/06/19 08:59 Last Admin: 08/23/19 20:11 Dose: 500 mg Lorazepam (Ativan Inj*) 0 - 3 mg IV PUSH .PER [facility] PROTOCOL [facility]; Protocol Metoprolol Succinate (Toprol Xl Tab*) 12.5 mg PO DAILY [facility] Miscellaneous (Ativan Pyxis Jolly) 1 ea N/A .ATIVAN IV JOLLY PRN PRN Reason: PYXIS JOLLY Multivitamins/Minerals (Theragran/Minerals Tab*) 1 tab PO DAILY [facility] Last Admin: 08/23/19 08:22 Dose: 1 tab Thiamine HCl (Vitamin B-1 Tab*) 100 mg PO DAILY [facility] Last Admin: 08/23/19 08:22 Dose: 100 mg HOME MEDS: Aspirin 81 mg CHEW TAB* [Aspirin Low Dose TAB*] 81 mg PO DAILY 08/29/18 [ History Confirmed 08/20/19] glipiZIDE TAB* [Glucotrol TAB*] 5 mg PO DAILY 08/29/18 [History Confirmed ] Atenolol TAB* [Tenormin TAB* 50 MG] 50 mg PO DAILY 08/20/19 [History Confirmed 08/20/19] Atorvastatin Calcium [Lipitor] 80 mg PO DAILY 08/20/19 [History Confirmed ] Finasteride [Proscar] 5 mg PO DAILY 08/20/19 [History Confirmed 08/20/19] Lisinopril TAB* [Prinivil TAB 5 MG*] 10 mg PO DAILY 08/20/19 [History Confirmed 08/20/19] Objective Vital Signs: Temp Pulse Resp BP Pulse Ox 97.8 F 56 17 113/64 95 08/24/19 05:59 08/24/19 05:59 08/24/19 05:59 08/24/19 05:59 08/24/19 05:59 Oxygen Devices in Use Now: None Appearance: disseveled, NAD Eyes: PERRLA Ears/Nose/Mouth/Throat: Mucous Membranes Moist Neck: Trachea Midline Respiratory: Symmetrical Chest Expansion and Respiratory Effort, Clear to Auscultation Cardiovascular: NL Sounds; No Murmurs; No JVD, RRR Laboratory Results: 08/24/19 07:31 08/24/19 07:31 INR (Anticoag Therapy) 1.03 (0.82-1.09) 08/20/19 21:48 APTT 29.6 seconds (26.0-38.0) 08/20/19 21:48 Total Bilirubin 2.40 mg/dL (0.2-1.0) H 08/20/19 21:48 AST 21 U/L (13-39) 08/20/19 21:48 ALT 19 U/L (7-52) 08/20/19 21:48 Alkaline Phosphatase 94 U/L (34-104) 08/20/19 21:48 Total Protein 7.2 g/dL (6.4-8.9) 08/20/19 21:48 Albumin 4.2 g/dL (3.2-5.2) 08/20/19 21:48 Globulin 3.0 g/dL (2-4) 08/20/19 21:48 Albumin/Globulin Ratio 1.4 (1-3) 08/20/19 21:48 08/20/19 08/21/19 08/21/19 21:48 01:05 04:46 Troponin I 0.05 H* 0.10 H* 0.22 H* 08/21/19 10:45 Troponin I 0.16 H* Assessment/Plan 79 yo diabetic admitted with seizures, DKA, electrolyte imbalance, PAF/flutter, bump in trops. Trops and CAD risks: Kelly myoview as inpatient to risk stratify, but could have been Type 2/demand ischemia. PAF: recommend NOAC for stroke prevention, BB for now. Consider sleep eval as outpatient Electrolytes improved KCl goal: 4-4.5, follow carefully outpatient. Consider OP EM.
[2019-08-24] MEDS: Finasteride TAB* 5 MG PO SCH (09:49)
[2019-08-24] MEDS: Multivitamins/Minerals TAB PO SCH (09:49)
[2019-08-24] MEDS: Folic Acid TAB* 1 MG PO SCH (09:49)
[2019-08-24] MEDS: levETIRAcetam TAB* 500 MG PO SCH ×2 (09:49→20:30)
[2019-08-24] MEDS: Thiamine TAB* 100 MG TAB PO SCH (09:49)
[2019-08-24] MEDS: Aspirin 81 mg CHEW TAB* 81 MG TAB.CHEW PO SCH (09:50)
[2019-08-24 10:46] LABS: HDL Cholesterol 45.5 mg/dL
[2019-08-24] MEDS ORDERED: Regadenoson* 0.4 MG/5 ML SYRINGE ONE (11:01)
[2019-08-24] MEDS ORDERED: Aminophylline IV* 25 MG/ML 10 ML VIAL ONE (11:02)
--- NOTE | 2019-08-24 13:15 | CONS ---
DATE OF CONSULTATION: 08/24/2019. ATTENDING PHYSICIAN: Dr. Aziza Peterson* (dictated by Amira Amin NP). REASON FOR CONSULTATION: Troponin elevation, newly found paroxysmal aflutter. HISTORY OF PRESENT ILLNESS: This is a pleasant, 79-year-old male patient with a notable history of type 2 diabetes, hypertension, hyperlipidemia, BPH, 4.3 cm transthoracic ascending aortic aneurysm, and chronic kidney disease. The patient states he has been in his usual state of health. He moved from [place] approximately one year ago after his passed. He resides with his cousin who is his roommate. He states that he lives a fairly functional lifestyle. He does note that he periodically ambulates with a cane. He denies falling at home, recent infection, or illness. He does not recall what brought him to the hospital, although upon review of medical records, it appears that he presented to [facility] on 08/20/2019 after being found unconscious by his roommate. EMS was called. En route to the emergency department, he had two witnessed seizures. He was hypoxic and was given 10 liters via non-rebreather. Glucose was too high to record actual value; however , in the emergency department, blood glucose was 703. He was admitted for altered mental status, lactic acidosis, metabolic encephalopathy and newly found seizure disorder with probable A-fib flutter. Neurology saw and evaluated the patient and determined that seizures were likely provoked by metabolic encephalopathy. He underwent an EEG and was started on Keppra therapy. In regards to paroxysmal A-fib flutter with troponin elevation, troponin peaked at 0.22. He underwent an echocardiogram 08/21/2019. Per report, LVEF was 55 to 60 percent, mild to moderate LV dilatation, mitral valve annulus appeared moderately calcified. There was mobile calcific echo-density at the posterior chordal structures measuring 0.6 cm x 0.9 cm. There was trace to mild mitral regurgitation. Aortic valve was trileaflet with trace aortic insufficiency, trace to mild tricuspid insufficiency with a 4.3 cm transthoracic aneurysm. The mitral valve mobile structure, per report, could be reflective of sclerosis associated with MAC, but could not exclude vegetation or cardiac mass per report. The patient denies ever experiencing chest pain, exertional dyspnea, decreased exercise tolerance, dizziness, syncope or palpitations. He denies ever undergoing an ischemic evaluation such as stress test or angiogram. He reports compliance with medications and denies history of bleeding events. PAST MEDICAL HISTORY: 1. Type 2 diabetes mellitus. 2. Hypertension. 3. Hyperlipidemia. 4. BPH. 5. 4.3 cm transthoracic aneurysm. 6. Chronic kidney disease. PAST SURGICAL HISTORY: Cataract surgery. ALLERGIES: No known drug allergies. The patient denies allergy to contrast dye. HOME MEDICATIONS LISTED: 1. Aspirin 81 mg a day. 2. Atenolol 50 mg a day. 3. Lipitor 80 mg a day. 4. Finasteride 5 mg a day. 5. Glipizide 5 mg a day. 6. Lisinopril 10 mg a day. FAMILY HISTORY: Noncontributory. SOCIAL HISTORY: The patient is a listed as a full code. He moved from [place] after the passing of his a year ago. He does not have any children. He resides with his cousin in [place]. He is a former tobacco user, quit in 1978. Denies using alcohol or illegal substance use. He ambulates independently. Denies history of falls and does occasionally utilize a cane. REVIEW OF SYSTEMS: All systems have been reviewed and are otherwise negative, except as above mentioned in the HPI. PHYSICAL EXAMINATION: General: The patient is alert and oriented times three, cooperative with exam. He does appear disheveled, but is pleasant and cooperative. Vital Signs: Temperature 97.8, pulse 56, respirations 17, oxygenation 95 percent on room air, blood pressure 113/64. HEENT: Head is atraumatic, normocephalic. Oral mucosa is moist. Tongue is midline. Neck: Supple. Trachea midline. No JVD. No carotid bruits. Cardiac: Normal S1, S2 , regular rate and rhythm. No murmur, rub or gallops noted. Lungs: Auscultated posteriorly. No evidence of adventitious breath sounds. Respirations are nonlabored. /GI: Abdomen is soft, nontender, nondistended. Normoactive bowel sounds times four. Extremities: SCD's are on bilaterally and functioning. Trace pedal edema noted. Otherwise no clubbing, no cyanosis. Peripheral vascular: 3+ brachial and dorsalis pedis pulses palpated bilaterally and symmetrically. LABORATORY DATA: Blood work from 08/24/2019 reviewed. Sodium 138, potassium 3.6, chloride 105, carbon dioxide 27, creatinine 1.31, magnesium 1.7. Troponin peaked at 0.22 on 08/21/2019. Lactic acid initially was 12.4 on 08/20/2019; repeat lactic acid was less than 0.3 on 08/21/2019. White blood cell count was initially 13.5, it is currently 7.7. Urine culture was negative for growth. Aerobic blood culture was negative for growth after day 3. Anaerobic blood culture was negative for growth after day 3. ECG on 08/22/2019 reviewed. Sinus rhythm rate 61 with known underlying right bundle branch block with left vesicular block. ECG on 08/21/2019 is AFL rate 54 with underlying right bundle fascicular block. CTA head and neck: Negative for stenosis or occlusion. ASSESSMENT AND PLAN: 1. Altered mental status with witnessed seizures in the setting of lactic acidosis and metabolic encephalopathy. Neurology saw and evaluated the patient. CTA of the head was negative for occlusion or stenosis, felt to be provoked by underlying metabolic encephalopathy, now on Keppra therapy. Defer to primary team and Neurology. 2. Troponinemia: Troponin peaked at 0.22 on 08/21/2019. The patient denies ever experiencing chest pain or symptomatology consistent with angina. There was no evidence of focal wall motion abnormality on echocardiogram. LVEF is preserved. Given history of type 2 diabetes, hypertension, and hyperlipidemia, would recommend risk stratification with Lexiscan nuclear stress test. Will place order for today given the patient has not consumed caffeinated products. Will follow-up after study. 3. Newly found paroxysmal A-fib flutter currently in normal sinus rhythm, likely provoked by above #1. CHADS-VASc is 4 representing a 4% yearly risk of suffering from a CVA. HAS-BLED score is 2, representing a 1.8 to 3.2 risk of major bleeding event in one year's time. At this current time, recommend oral anticoagulation. Creatinine clearance is 55, thus would recommend Xarelto 20 mg a day or Eliquis 5 mg p.o. b.i.d. He is historically on Atenolol 50 mg a day which has been on hold. Heart rates are stable. Given underlying chronic kidney disease would recommend resuming beta hannah therapy; however, would start Toprol 12.5 mg a day and up titrate appropriately. The patient should follow-up closely with primary physician long-term to determine whether or not if long-term anticoagulation is indicated given paroxysmal A-fib flutter. It was likely provoked by above #1. The patient denies bleeding complications or falling at home. 4. Abnormal echocardiogram: Per echocardiogram 08/21/2019, there was a 0.6 cm x 0.9 cm mobile calcific echodensity at the posterior chordal structure likely representing sclerosis associated with MAC; however, we are not able to exclude vegetation or cardiac mass at this time. Aerobic and anaerobic blood cultures have been negative for growth, in addition to urinary culture negative for growth. He has not listed any infectious symptomatology. Would recommend trending inflammatory markers and following up with primary care physician outpatient for further evaluation. 5. History of 4.3 cm transthoracic aneurysm: Newly found on echocardiogram. Will resume beta hannah therapy, continue statin therapy. Aortic valve is trileaflet. 6. History of chronic kidney disease: Creatinine today is 1.31. Defer to primary team. Would avoid restarting Atenolol and instead prescribe Toprol 12.5 mg a day. 7. Uncontrolled type 2 diabetes mellitus: Hemoglobin A1c is 10.6%. Historically on Glipizide therapy. Will defer to primary team. 8. Disposition pending course. Dr. Aziza Peterson has seen and examined the patient and agrees with the above assessment and plan. Thank you for this kind consultation. Will follow closely after Lexiscan nuclear stress test and initiation of beta hannah therapy to determine the patient's response. Would suggest initiating Factor 10a inhibitor. Will place order for Eliquis 5 mg p.o. b.i.d. Again, age is less than 80, creatinine is less than 1.5. AMIRA AMIN NP [id number]/CPS #: [id number] ALEKSANDAR
--- NOTE | 2019-08-24 15:58 | PN ---
Subjective Date of Service: 08/24/19 Interval History: patient up in chair on assessment. he states he needs rehab before going home and feels weak. no further seizures., he states he feels better everyday. reports better appetite today. Otherwise he offers no further complaints. Objective Active Medications: Apixaban (Eliquis*) 5 mg PO BID [facility] Atorvastatin Calcium (Lipitor*) 80 mg PO 1700 [facility] Last Admin: 08/23/19 17:20 Dose: 80 mg Dextrose (D50w Syringe 50 Ml*) 12.5 gm IV PUSH .FOR FS < 60 - SS PRN PRN Reason: FS < 60 Finasteride (Proscar Tab*) 5 mg PO DAILY [facility] Last Admin: 08/24/19 09:49 Dose: 5 mg Folic Acid (Folvite Tab*) 1 mg PO DAILY [facility] Last Admin: 08/24/19 09:49 Dose: 1 mg Insulin Glargine (Lantus(*)) 18 units SUBCUT Q24H [facility] Insulin Human Lispro (Humalog*) 0 units SUBCUT AC [facility]; Protocol Last Admin: 08/24/19 12:06 Dose: Not Given Levetiracetam (Keppra Tab*) 500 mg PO BID [facility] Stop: 09/06/19 08:59 Last Admin: 08/24/19 09:49 Dose: 500 mg Lorazepam (Ativan Inj*) 0 - 3 mg IV PUSH .PER [facility] PROTOCOL [facility]; Protocol Metoprolol Succinate (Toprol Xl Tab*) 12.5 mg PO DAILY [facility] Miscellaneous (Ativan Pyxis Jolly) 1 ea N/A .ATIVAN IV JOLLY PRN PRN Reason: PYXIS JOLLY Multivitamins/Minerals (Theragran/Minerals Tab*) 1 tab PO DAILY [facility] Last Admin: 08/24/19 09:49 Dose: 1 tab Thiamine HCl (Vitamin B-1 Tab*) 100 mg PO DAILY [facility] Last Admin: 08/24/19 09:49 Dose: 100 mg Vital Signs - 8 hr 08/24/19 08/24/19 08/24/19 08:00 13:00 14:00 Temperature 97.5 F 97.6 F Pulse Rate 77 64 Respiratory 16 18 16 Rate Blood Pressure 144/81 119/67 (mmHg) O2 Sat by Pulse 94 94 Oximetry Oxygen Devices in Use Now: None Appearance: eldelry male sitting up in a chair in NAD, A+O to self and place Eyes: PERRLA Ears/Nose/Mouth/Throat: Mucous Membranes Moist Respiratory: Symmetrical Chest Expansion and Respiratory Effort, Clear to Auscultation Cardiovascular: NL Sounds; No Murmurs; No JVD, RRR, No Edema Abdominal: NL Sounds; No Tenderness; No Distention Extremities: No Edema Neurological: NL Sensation, NL Muscle Strength and Tone, - - A+O to self and place Lines/Tubes/Other Access: Clean, Dry and Intact Peripheral IV Nutrition: Taking PO's Result Diagrams: 08/24/19 07:31 08/24/19 07:31 Microbiology and Other Data: Microbiology 08/20/19 23:10 Urine Culture - Final Urine 08/20/19 22:04 Aerobic Blood Culture - Preliminary Blood Venous No Growth Day 1 Anaerobic Blood Culture - Preliminary No Growth Day 1 08/20/19 22:10 Aerobic Blood Culture - Preliminary Blood Venous No Growth Day 1 Anaerobic Blood Culture - Preliminary No Growth Day 1 Assess/Plan/Problems-Billing Assessment: patient is a 79 yo male with a PMH of type 2 diabetes, HTN, HLD, BPH, 4.3 cm transthoracic ascending aortic aneurysm, and CKD who presented with AMS per EMS noted he had a seizure enroute to the hospital and another one in the ER thought to be secondary to hyperosmolar nonketotic state and acute hypercapinic respiratory failure requiring BIPAP, also found to have afib/flutter, elevated troponin. - Patient Problems (1) Seizures Comment: Seizures witnessed via EMS as well as seizure in ED. started on Keppra per neurology, will titrate off as his seizures were very likely provoked by metabolic derrangement with HHS Has not had any further seizures CTA of the head was negative for occulsion or stenosis Alcohol level 11 on admission, pt denies alcohol intake. On [place] protocol, no signs of withdrawl -> plan to DC [facility] Keppra 500mg PO BID X14 days, then decrease by 250mg daily until off - per , started PO dosing on 08/22 Continue precautions (2) Hyperosmolar non-ketotic state due to type 2 diabetes mellitus Comment: Has resolved. Unlcear etilogy. known hx of DMII treated with glipizide , unclear if he is complaint with medication. Does not appear to have an infectcious process. Starting patient on insulin therapy, he believes he will be able to manage this at home Diabetes education Increase lantus to 18un q24hr (3) Hypercapnic respiratory failure Comment: - resolved. seemed to be related to sedation; ABG showed respiratory acidosis - > significant imporvement with BiPAP (4) Lactic acid acidosis Comment: resolved appears to be secondary to seizures. low suspicion for acute infections. (5) Arrhythmia Comment: possible AFib on arrival and then ekg exhibiting AFlutter soon after while in the ICU. Unknown if he has a hx of this arrhythmia. Likely due to significant metabolic derrangement with HHS. Will continue to monitor and replete K and Mg as needed. Goal for KCL 4-4.5 Appreciate cardiology consult, started on Eliquis, and recommend BB for now. Consider sleep study as outpatient. Consider OP EM. Elevated troponins - be myoview as inpatient - possible type2/demand ischemia. asymptomatic (6) Troponin level elevated Comment: - see above (7) BPH (benign prostatic hyperplasia) Comment: continue finasteride (8) Chronic kidney disease Comment: Acute of chronic. Do not know baseline creatinine. Now trending down Possible report of bloody urine? None noted today. continue to monitor. (9) HTN (hypertension) Comment: stable with mild elevations at times Not on anti-hypertensives (10) Hypokalemia Comment: resolved (11) Hypomagnesemia Comment: 1.8 08/22 Mag Ox 400mg X1 ordered labs in a.m. (12) DVT prophylaxis Comment: Jolene (13) Full code status Status and Disposition: inpatient. Will need subacute rehab
[2019-08-24] MEDS: Atorvastatin* 80 MG TAB PO SCH (16:56)
[2019-08-24] MEDS: Insulin GLARGINE(*) 1 UNITS UNIT SUBCUT SCH (16:56)
[2019-08-24] MEDS: Apixaban* 5 MG TAB PO SCH (20:30)
[2019-08-25] MEDS: Acetaminophen TAB* 325 MG PO PRN (04:07)
[2019-08-25 05:53] LABS: ABS Lymphocytes 0.4 10^3/ul (1.0-4.8); ABS Monocytes 0.5 10^3/ul (0-0.8); Eosinophil % 0.1 %; Hematocrit 41 % (42-52); Hemoglobin 13.8 g/dL (14.0-18.0); Lymphocyte % 6.3 %; Mean Corpuscular HGB Conc 34 g/dL (31-36); Mean Corpuscular Hemoglobin 29 pg (27-31); Mean Corpuscular Volume 87 fL (80-94); Mean Platelet Volume 8.4 fL (7.4-10.4); Platelet Count 185 10^3/uL (150-450); Red Cell Distribution Width 15 % (10-15); White Blood Count 6.9 10^3/uL (3.5-10.8)
[2019-08-25 05:54] LABS: Urine Appearance Cloudy; Urine Bilirubin Negative (Negative); Urine Blood 2+ (Negative); Urine Color Amber; Urine Glucose Negative (Negative); Urine Ketones Negative (Negative); Urine Nitrite Positive (Negative); Urine Protein Negative (Negative); Urine Specific Gravity 1.017 (1.010-1.030); Urine Urobilinogen Negative (Negative)
[2019-08-25 06:00] LABS: Urine Bacteria Absent (Absent); Urine Red Blood Cell 2+(6-10/hpf) (Absent); Urine White Blood Cell 3+(>20/hpf) (Absent)
[2019-08-25 06:09] LABS: BUN/Creatinine Ratio 15.3 (8-20); Calcium 8.6 mg/dL (8.6-10.3); EGFR African American 60.6 (>60); EGFR Non-African American 50.1 (>60); Magnesium 1.7 mg/dL (1.9-2.7); Potassium 4.3 mmol/L (3.5-5.0)
[2019-08-25] MEDS: Insulin LISPRO* 1 UNITS UNIT SUBCUT SCH ×4 (08:14→21:46)
[2019-08-25] MEDS ORDERED: Lisinopril TAB* 5 MG PO SCH (09:00)
[2019-08-25] MEDS ORDERED: Metoprolol Succinate XL TAB* 25 MG PO SCH (09:00)
--- NOTE | 2019-08-25 09:10 | PN ---
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 currently A+ O x3 and offering no complaints. He is anxious to go home but we are awaiting PT eval, he will likely need rehab. He continues to deny chest pain, sob, meyers, palpitations, sensation of heart racing or dizziness. Medications Active Medications: Acetaminophen (Tylenol Tab*) 650 mg PO Q6H PRN PRN Reason: PAIN - MILD Last Admin: 08/25/19 04:07 Dose: 650 mg Apixaban (Eliquis*) 5 mg PO BID [facility] Last Admin: 08/24/19 20:30 Dose: 5 mg Atorvastatin Calcium (Lipitor*) 80 mg PO 1700 [facility] Last Admin: 08/24/19 16:56 Dose: 80 mg Dextrose (D50w Syringe 50 Ml*) 12.5 gm IV PUSH .FOR FS < 60 - SS PRN PRN Reason: FS < 60 Finasteride (Proscar Tab*) 5 mg PO DAILY [facility] Last Admin: 08/24/19 09:49 Dose: 5 mg Folic Acid (Folvite Tab*) 1 mg PO DAILY [facility] Last Admin: 08/24/19 09:49 Dose: 1 mg Magnesium Sulfate 3 gm/ Sodium (Chloride) 106 mls @ 53 mls/hr IVPB ONCE ONE Stop: 08/25/19 11:29 Insulin Glargine (Lantus(*)) 18 units SUBCUT Q24H [facility] Last Admin: 08/24/19 16:56 Dose: 24 unit Insulin Human Lispro (Humalog*) 0 units SUBCUT AC [facility]; Protocol Last Admin: 08/25/19 08:14 Dose: Not Given Levetiracetam (Keppra Tab*) 500 mg PO BID [facility] Stop: 09/06/19 08:59 Last Admin: 08/24/19 20:30 Dose: 500 mg Lisinopril (Prinivil Tab*) 2.5 mg PO DAILY [facility] Metoprolol Succinate (Toprol Xl Tab*) 25 mg PO DAILY [facility] Multivitamins/Minerals (Theragran/Minerals Tab*) 1 tab PO DAILY [facility] Last Admin: 08/24/19 09:49 Dose: 1 tab Thiamine HCl (Vitamin B-1 Tab*) 100 mg PO DAILY [facility] Last Admin: 08/24/19 09:49 Dose: 100 mg Objective Vital Signs: Temp Pulse Resp BP Pulse Ox 98.3 F 66 20 140/79 95 08/25/19 05:10 08/25/19 03:29 08/25/19 03:29 08/25/19 03:29 08/25/19 03:29 Oxygen Devices in Use Now: None Appearance: disheveled, NAD, currently A+O x3 Eyes: PERRLA Ears/Nose/Mouth/Throat: Mucous Membranes Moist Neck: Trachea Midline Respiratory: Symmetrical Chest Expansion and Respiratory Effort, Clear to Auscultation Cardiovascular: NL Sounds; No Murmurs; No JVD, RRR Extremities: - - trace pedal edema Neurological: Alert and Oriented x 3 Lines/Tubes/Other Access: Clean, Dry and Intact Peripheral IV Laboratory Results: 08/25/19 05:35 08/25/19 05:35 INR (Anticoag Therapy) 1.03 (0.82-1.09) 08/20/19 21:48 APTT 29.6 seconds (26.0-38.0) 08/20/19 21:48 Total Bilirubin 2.40 mg/dL (0.2-1.0) H 08/20/19 21:48 AST 21 U/L (13-39) 08/20/19 21:48 ALT 19 U/L (7-52) 08/20/19 21:48 Alkaline Phosphatase 94 U/L (34-104) 08/20/19 21:48 Total Protein 7.2 g/dL (6.4-8.9) 08/20/19 21:48 Albumin 4.2 g/dL (3.2-5.2) 08/20/19 21:48 Globulin 3.0 g/dL (2-4) 08/20/19 21:48 Albumin/Globulin Ratio 1.4 (1-3) 08/20/19 21:48 Triglycerides 91 mg/dL 08/24/19 07:31 Cholesterol 140 mg/dL 08/24/19 07:31 LDL Cholesterol 76 mg/dL 08/24/19 07:31 HDL Cholesterol 45.5 mg/dL 08/24/19 07:31 08/20/19 08/21/1920 21:48 01:05 04:46 Troponin I 0.05 H* 0.10 H* 0.22 H* 08/21/19 10:45 Troponin I 0.16 H* Laboratory Results - last 24 hr 08/24/19 08/24/19 08/24/19 07:31 16:44 20:18 WBC RBC Hgb Hct MCV MCH MCHC RDW Plt Count MPV Neut % (Auto) Lymph % (Auto) Gentry % (Auto) Eos % (Auto) Baso % (Auto) Absolute Neuts (auto) Absolute Lymphs (auto) Absolute Monos (auto) Absolute Eos (auto) Absolute Basos (auto) Absolute Nucleated RBC Nucleated RBC % Sodium 138 Potassium 3.6 Chloride 105 Carbon Dioxide 27 Anion Gap 6 BUN 24 Creatinine 1.31 H Est GFR ( Amer) 63.9 Est GFR (Non-Af Amer) 52.8 BUN/Creatinine Ratio 18.3 Glucose 75 POC Glucose (mg/dL) 94 140 H Calcium 8.5 L Magnesium 1.7 L Triglycerides 91 Cholesterol 140 LDL Cholesterol 76 HDL Cholesterol 45.5 Urine Color Urine Appearance Urine pH Ur Specific Milton Urine Protein Urine Ketones Urine Blood Urine Nitrate Urine Bilirubin Urine Urobilinogen Ur Leukocyte Esterase Urine WBC (Auto) Urine RBC (Auto) Urine Bacteria Urine Glucose 08/25/19 08/25/19 08/25/19 05:35 05:35 05:35 WBC 6.9 RBC 4.70 Hgb 13.8 L Hct 41 L MCV 87 MCH 29 MCHC 34 RDW 15 Plt Count 185 MPV 8.4 Neut % (Auto) 86.1 Lymph % (Auto) 6.3 Gentry % (Auto) 6.9 Eos % (Auto) 0.1 Baso % (Auto) 0.6 Absolute Neuts (auto) 6.0 Absolute Lymphs (auto) 0.4 L Absolute Monos (auto) 0.5 Absolute Eos (auto) 0.0 Absolute Basos (auto) 0.0 Absolute Nucleated RBC 0.0 Nucleated RBC % 0.0 Sodium 135 Potassium 4.3 Chloride 102 Carbon Dioxide 26 Anion Gap 7 BUN 21 Creatinine 1.37 H Est GFR ( Amer) 60.6 Est GFR (Non-Af Amer) 50.1 BUN/Creatinine Ratio 15.3 Glucose 119 H POC Glucose (mg/dL) Calcium 8.6 Magnesium 1.7 L Triglycerides Cholesterol LDL Cholesterol HDL Cholesterol Urine Color Twila Urine Appearance Cloudy Urine pH 6.0 Ur Specific Milton 1.017 Urine Protein Negative Urine Ketones Negative Urine Blood 2+ A Urine Nitrate Positive A Urine Bilirubin Negative Urine Urobilinogen Negative Ur Leukocyte Esterase Trace A Urine WBC (Auto) 3+(>20/hpf) A Urine RBC (Auto) 2+(6-10/hpf) A Urine Bacteria Absent Urine Glucose Negative 08/25/19 07:29 WBC RBC Hgb Hct MCV MCH MCHC RDW Plt Count MPV Neut % (Auto) Lymph % (Auto) Gentry % (Auto) Eos % (Auto) Baso % (Auto) Absolute Neuts (auto) Absolute Lymphs (auto) Absolute Monos (auto) Absolute Eos (auto) Absolute Basos (auto) Absolute Nucleated RBC Nucleated RBC % Sodium Potassium Chloride Carbon Dioxide Anion Gap BUN Creatinine Est GFR ( Amer) Est GFR (Non-Af Amer) BUN/Creatinine Ratio Glucose POC Glucose (mg/dL) 98 Calcium Magnesium Triglycerides Cholesterol LDL Cholesterol HDL Cholesterol Urine Color Urine Appearance Urine pH Ur Specific Milton Urine Protein Urine Ketones Urine Blood Urine Nitrate Urine Bilirubin Urine Urobilinogen Ur Leukocyte Esterase Urine WBC (Auto) Urine RBC (Auto) Urine Bacteria Urine Glucose Diagnostic Imaging: direction, maximal systolic dimension is 4.3 cm. - Ascending aorta: The ascending aorta is moderately dilated. - Pulmonary arteries: Systolic pressure is within the normal range. - No prior echocardiogram to compare. - Comment: Mitral valve mobile structure could be sclerosis associated with MAC, but can't exclude a vegetation or cardiac mass such as a firbroelastoma. Clincial correlation recommended. If clinically indicated a transesophageal echocardiogram could provide additonal imformation, improved imaging. Study data: Transthoracic echocardiogram. Procedure: Transthoracic echocardiography was performed. Image quality was suboptimal. The study was technically limited due to poor acoustic window availability, poor patient compliance, and Patient on Bipap. Complete 2D, spectral Doppler, and color flow Doppler. Location: ICU Patient status: Inpatient. Patient room number: ICU-16. Rhythm: Normal sinus rhythm with PAC's. Findings Left ventricle: Poorly/ not visualized in apical views. The cavity size is below normal. Wall thickness is mildly increased. Systolic function is normal. The estimated ejection fraction is 55-60%. Regional wall motion abnormalities cannot be excluded. There is no consistent Doppler evidence of clinically significant diastolic dysfunction. Right ventricle: The cavity size is mildly to moderately dilated. Systolic function is low normal. Systolic pressure is within the normal range. Ventricular septum: There is septal flattening of the interventricular septum consistent with RV volume or pressure overload. Left atrium: The atrium is normal in size. Right atrium: The atrium is normal in size. Mitral valve: The Mitral valve annulus appears moderately calcified. The leaflets are mildly thickened. There is a mobile echo-density at the posterior chordal structures measuring 0.6 cm x 0.9 cm. Images 5 and 6. There is no evidence of stenosis. There is trace to mild regurgitation. Aortic valve: The valve is trileaflet. The leaflets are mildly thickened. Cusp separation is at the lower limits of normal. There is no evidence of stenosis. Velocity through the aortic valve may be underestimated due to poor accoustic windows. There is trace regurgitation. Tricuspid valve: The leaflets are normal thickness. There is no evidence of stenosis. There is trace to mild regurgitation. Pulmonic valve: The leaflets are normal thickness. There is no This report is only to be considered final once signed by the Provider(s) as displayed in the "<Electronically Signed by >" field (s). Absence of a signature indicates the report is in a draft status and still needs to be finalized. In the event this document was created by someone other than the signing Provider, the individual initiating the document will be listed in the "Entered by:" or "Dictated by:" brown. Patient Name: TYSON RAMIREZ Ordering Physician: Amira Amin NP : [id number] Age: 79 Sex: M Location: [facility] - MEDICAL/TELEMETRY Exam Date: 08/24/19 0900 ADM Status: ADM IN Observation Date/Time: Order Information: NUCLEAR CARDIAC STRESS TEST Accession Number: [id number] CPT: 10404 HISTORY: troponin elevation. COMPARISONS: None TECHNIQUE: A 1 day stress/rest myocardial perfusion study was performed, with pharmacologic stress. The stress portion was monitored by Dr. Hernandes. Gated SPECT imaging was performed, without CT-based attenuation correction secondary to patient physical limitation. DOSE: Stress: Technetium 99m tetrofosmin, 25.2 millicuries, injected at 11:52 AM on August 24, 2019 Rest: Technetium 99m tetrofosmin, 10.1 millicuries, injected at 10:10 AM on August 24, 2019 Pharmacologic agent: Lexiscan FINDINGS: CARDIAC MONITORING: No evidence of myocardial ischemia by EKG criteria EF: 46% TID: 1.05 MOTION: There is inferior wall hypokinesia PERFUSION: There is a fixed defect of the inferior wall OTHER: None IMPRESSION: FIXED DEFECT OF THE INFERIOR WALL WHICH MAY REFLECT SOFT TISSUE ATTENUATION ARTIFACT VERSUS PREVIOUS INFARCT. DECREASED EJECTION FRACTION. ASSESSMENT: INTERMEDIATE RISK. Based on imaging criteria from ACC/AHA 2002. Guideline Update for the Management of Patient's with Chronic Stable Angina, table 23. Noninvasive Risk Stratification. <Electronically signed by Chad Smith MD in [place]> 08/24/19 1301 Dictated By: Chad Smith MD Dictated Date/Time: 08/24/19 1259 Transcribed Date/Time: 08/24/19 1259 Copy to: This report is only to be considered final once signed by the Provider(s) as displayed in the "<Electronically Signed by >" field (s). Absence of a signature indicates the report is in a draft status and still needs to be finalized. In the event this document was created by someone other than the signing Provider, the individual initiating the document will be listed in the "Entered by:" or "Dictated by:" brown. 1 of 2 EKG Data: 08/24/19; sinus rhythm rate 61 with known LAFB and RBBB. telemetry reviewed. currently Sinus rhythm rate 70's with occasional PVCs however, he has continued to have intermittent periods of asymptomatic AF. Rates controlled( 70's) Assessment/Plan #1 Newly diagnosed PAF/AFL; Chads Vasc 4 now on eliquis 5mg Po BID and Toprol 12.5mg/day. He has been asymptomatic with continued short periods of AF/AFL noted on telemetry. Will increase Toprol to 25mg/day. Denies h/o bleeding events or falling. felt to be related to acute illness( DKA with metabolic encephalopathy) will update TFTs . Keep K+>4, Mag > 2 ( 3mg IV mag ordered today ). I personally spoke with Dr. Anand yesterday who informed me it was safe to start OAC. #2 Troponin elevation; Patient denies ever experiencing chest pain., No focla wall motion abnormality noted on echo. He was risk stratified with lexiscan stress test 08/24/19; per report low risk LVEF 46%, with ? fixed inferior defect however, there was soft tissue artifact so there was concern it was artifact versus prior infarct. LDL controlled on Lipitor 80QHS. Would not resume ASA 81/ day given nuclear stress test is not conclusive for prior infarct and he is now on OAC for above #1. No further testing needed at this time #3 h/o HTN; BP elevated. Toprol to be increased for above #1. Will reorder Lisinopril ( home medication). #4 ? mobile calcific MV echo density felt to be likely related to MV sclerosis however, vegetation or mass could not be excluded. blood cultures and urine cultures are negative for growth. inflammatory markers added to blood work. No infectious symptomatology. Can follow up outpatient for repeat echo. Colin was not recommended at this time. #5 Disposition pending course. Will sign off. Will discuss case with Dr. Chacon Attending: Benjamin Chacon <Benjamin Chacon - Last Filed: 08/25/19 10:29> Medications Active Medications: Acetaminophen (Tylenol Tab*) 650 mg PO Q6H PRN PRN Reason: PAIN - MILD Last Admin: 08/25/19 04:07 Dose: 650 mg Apixaban (Eliquis*) 5 mg PO BID [facility] Last Admin: 08/25/19 10:17 Dose: 5 mg Atorvastatin Calcium (Lipitor*) 80 mg PO 1700 [facility] Last Admin: 08/24/19 16:56 Dose: 80 mg Dextrose (D50w Syringe 50 Ml*) 12.5 gm IV PUSH .FOR FS < 60 - SS PRN PRN Reason: FS < 60 Finasteride (Proscar Tab*) 5 mg PO DAILY [facility] Last Admin: 08/25/19 10:17 Dose: 5 mg Folic Acid (Folvite Tab*) 1 mg PO DAILY [facility] Last Admin: 08/25/19 10:17 Dose: 1 mg Magnesium Sulfate 3 gm/ Sodium (Chloride) 106 mls @ 53 mls/hr IVPB ONCE ONE Stop: 08/25/19 11:29 Last Admin: 08/25/19 10:16 Dose: 53 mls/hr Insulin Glargine (Lantus(*)) 18 units SUBCUT Q24H [facility] Last Admin: 08/24/19 16:56 Dose: 24 unit Insulin Human Lispro (Humalog*) 0 units SUBCUT [facility]; Protocol Last Admin: 08/25/19 08:14 Dose: Not Given Levetiracetam (Keppra Tab*) 500 mg PO BID [facility] Stop: 09/06/19 08:59 Last Admin: 08/25/19 10:17 Dose: 500 mg Lisinopril (Prinivil Tab*) 2.5 mg PO DAILY [facility] Last Admin: 08/25/19 10:17 Dose: 2.5 mg Metoprolol Succinate (Toprol Xl Tab*) 25 mg PO DAILY [facility] Last Admin: 08/25/19 10:16 Dose: 25 mg Multivitamins/Minerals (Theragran/Minerals Tab*) 1 tab PO DAILY [facility] Last Admin: 08/25/19 10:17 Dose: 1 tab Thiamine HCl (Vitamin B-1 Tab*) 100 mg PO DAILY [facility] Last Admin: 08/25/19 10:17 Dose: 100 mg Objective Vital Signs: Temp Pulse Resp BP Pulse Ox 98.3 F 66 20 140/79 95 08/25/19 05:10 08/25/19 03:29 08/25/19 03:29 08/25/19 03:29 08/25/19 03:29 Laboratory Results: 08/25/19 05:35 08/25/19 05:35 INR (Anticoag Therapy) 1.03 (0.82-1.09) 08/20/19 21:48 APTT 29.6 seconds (26.0-38.0) 08/20/19 21:48 Total Bilirubin 2.40 mg/dL (0.2-1.0) H 08/20/19 21:48 AST 21 U/L (13-39) 08/20/19 21:48 ALT 19 U/L (7-52) 08/20/19 21:48 Alkaline Phosphatase 94 U/L (34-104) 08/20/19 21:48 Total Protein 7.2 g/dL (6.4-8.9) 08/20/19 21:48 Albumin 4.2 g/dL (3.2-5.2) 08/20/19 21:48 Globulin 3.0 g/dL (2-4) 08/20/19 21:48 Albumin/Globulin Ratio 1.4 (1-3) 08/20/19 21:48 Triglycerides 91 mg/dL 08/24/19 07:31 Cholesterol 140 mg/dL 08/24/19 07:31 LDL Cholesterol 76 mg/dL 08/24/19 07:31 HDL Cholesterol 45.5 mg/dL 08/24/19 07:31 08/20/19 08/21/19 08/21/19 21:48 01:05 04:46 Troponin I 0.05 H* 0.10 H* 0.22 H* 08/21/19 10:45 Troponin I 0.16 H* Assessment/Plan Points of Discussion: Patient seen and examined. No cardiac complaints today. Case discussed with Ms. Amira Amin CHI NP. Appears to be small to moderate sized inferior infarct on cardiac stress nuclear exam. Will continue low dose aspirin in addition to OAC for PAF which seems fairly well controlled at this time. LV function reported normal on recent echo. May follow up likely mitral valve sclerosis with usual forensic chemist, Dr. Peterson with inflammatory markers pend. Agree with remainder of assessment and plan as per Ms. Eloisa CHI NP.
[2019-08-25 09:25] LABS: C Reactive Protein 27.18 mg/L (<8.01)
[2019-08-25] MEDS ORDERED: Magnesium Sulfate IV* 3 GM in NS 0.9% 100 ML* 100 ML IVPB ONE (09:30)
[2019-08-25] MEDS: Metoprolol Succinate XL TAB* 25 MG PO SCH (10:16)
[2019-08-25] MEDS: Folic Acid TAB* 1 MG PO SCH (10:17)
[2019-08-25] MEDS: Finasteride TAB* 5 MG PO SCH (10:17)
[2019-08-25] MEDS: Multivitamins/Minerals TAB PO SCH (10:17)
[2019-08-25] MEDS: levETIRAcetam TAB* 500 MG PO SCH ×2 (10:17→21:44)
[2019-08-25] MEDS: Apixaban* 5 MG TAB PO SCH ×2 (10:17→21:44)
[2019-08-25] MEDS: Thiamine TAB* 100 MG TAB PO SCH (10:17)
[2019-08-25] MEDS: Lisinopril TAB* 5 MG PO SCH (10:17)
--- NOTE | 2019-08-25 10:29 | PN ---
Subjective Date of Service: 08/25/19 Interval History: patient is alert to self and place but not to year. he offers no complaints. he reports that he does have trouble remembering to take his medications sometimes. he agrees to subacute rehab Objective Active Medications: Acetaminophen (Tylenol Tab*) 650 mg PO Q6H PRN PRN Reason: PAIN - MILD Last Admin: 08/25/19 04:07 Dose: 650 mg Apixaban (Eliquis*) 5 mg PO BID [facility] Last Admin: 08/25/19 10:17 Dose: 5 mg Atorvastatin Calcium (Lipitor*) 80 mg PO 1700 [facility] Last Admin: 08/24/19 16:56 Dose: 80 mg Dextrose (D50w Syringe 50 Ml*) 12.5 gm IV PUSH .FOR FS < 60 - SS PRN PRN Reason: FS < 60 Finasteride (Proscar Tab*) 5 mg PO DAILY [facility] Last Admin: 08/25/19 10:17 Dose: 5 mg Folic Acid (Folvite Tab*) 1 mg PO DAILY [facility] Last Admin: 08/25/19 10:17 Dose: 1 mg Magnesium Sulfate 3 gm/ Sodium (Chloride) 106 mls @ 53 mls/hr IVPB ONCE ONE Stop: 08/25/19 11:29 Last Admin: 08/25/19 10:16 Dose: 53 mls/hr Insulin Glargine (Lantus(*)) 18 units SUBCUT Q24H [facility] Last Admin: 08/24/19 16:56 Dose: 24 unit Insulin Human Lispro (Humalog*) 0 units SUBCUT AC [facility]; Protocol Last Admin: 08/25/19 08:14 Dose: Not Given Levetiracetam (Keppra Tab*) 500 mg PO BID [facility] Stop: 09/06/19 08:59 Last Admin: 08/25/19 10:17 Dose: 500 mg Lisinopril (Prinivil Tab*) 2.5 mg PO DAILY [facility] Last Admin: 08/25/19 10:17 Dose: 2.5 mg Metoprolol Succinate (Toprol Xl Tab*) 25 mg PO DAILY [facility] Last Admin: 08/25/19 10:16 Dose: 25 mg Multivitamins/Minerals (Theragran/Minerals Tab*) 1 tab PO DAILY [facility] Last Admin: 08/25/19 10:17 Dose: 1 tab Thiamine HCl (Vitamin B-1 Tab*) 100 mg PO DAILY [facility] Last Admin: 08/25/19 10:17 Dose: 100 mg Vital Signs - 8 hr 08/25/19 08/25/19 03:29 05:10 Temperature 100.0 F 98.3 F Pulse Rate 66 Respiratory 20 Rate Blood Pressure 140/79 (mmHg) O2 Sat by Pulse 95 Oximetry Oxygen Devices in Use Now: None Appearance: A+Ox3 in NAD, noted forgetfulness Eyes: PERRLA Ears/Nose/Mouth/Throat: Mucous Membranes Moist Neck: NL Appearance and Movements; NL JVP Respiratory: Symmetrical Chest Expansion and Respiratory Effort, Clear to Auscultation Cardiovascular: NL Sounds; No Murmurs; No JVD, RRR, No Edema Abdominal: NL Sounds; No Tenderness; No Distention Extremities: No Edema, No Clubbing, Cyanosis Skin: No Rash or Ulcers, No Nodules or Sclerosis Neurological: Alert and Oriented x 3, NL Sensation, NL Muscle Strength and Tone Lines/Tubes/Other Access: Clean, Dry and Intact Peripheral IV Nutrition: Taking PO's Result Diagrams: 08/25/19 05:35 08/25/19 05:35 Microbiology and Other Data: Microbiology 08/20/19 23:10 Urine Culture - Final Urine 08/20/19 22:04 Aerobic Blood Culture - Preliminary Blood Venous No Growth Day 1 Anaerobic Blood Culture - Preliminary No Growth Day 1 08/20/19 22:10 Aerobic Blood Culture - Preliminary Blood Venous No Growth Day 1 Anaerobic Blood Culture - Preliminary No Growth Day 1 Assess/Plan/Problems-Billing Assessment: patient is a 79 yo male with a PMH of type 2 diabetes, HTN, HLD, BPH, 4.3 cm transthoracic ascending aortic aneurysm, and CKD who presented with AMS per EMS noted he had a seizure enroute to the hospital and another one in the ER thought to be secondary to hyperosmolar nonketotic state and acute hypercapinic respiratory failure requiring BIPAP, also found to have afib/flutter, elevated troponin. Concerned about noncompliance and possible underlying cognitive decline - Patient Problems (1) Seizures Comment: Seizures witnessed via EMS as well as seizure in ED. started on Keppra per neurology, will titrate off as his seizures were very likely provoked by metabolic derrangement with HHS Has not had any further seizures CTA of the head was negative for occulsion or stenosis Alcohol level 11 on admission, pt denies alcohol intake. On [place] protocol, no signs of withdrawl -> plan to DC [facility] Keppra 500mg PO BID X14 days, then decrease by 250mg daily until off (250/500 on 09/03, 250/250 09/04. 250 on 09/05 then DC - per , started PO dosing on 08/22 Continue precautions (2) Hyperosmolar non-ketotic state due to type 2 diabetes mellitus Comment: Has resolved. Unlcear etilogy. known hx of DMII treated with glipizide , appears he is noncomplaint with medication. Does not appear to have an infectcious process. HgbA1C 10.6 Starting patient on insulin therapy - much better control Diabetes education Increase lantus to 18un q24hr Lispor SS AC (3) Hypercapnic respiratory failure Comment: - resolved. seemed to be related to sedation; ABG showed respiratory acidosis - > significant imporvement with BiPAP (4) Lactic acid acidosis Comment: resolved appears to be secondary to seizures. low suspicion for acute infections. (5) Arrhythmia Comment: Newly dx PAF/AFl. Chads vasc 4 -> started on eliquis and Troprol 12.5 mg yesterday. Asymptomatic. Intermittent AF/AL noted on tele strips. cardiology increased Toprol to 25 mg/day. Dr. Anand ok with starting anticoagulation Will continue to monitor and replete K and Mg as needed. Goal for KCL 4-4.5. Mg + >2 Appreciate cardiology consult, started on Eliquis, and recommend BB for now. Consider sleep study as outpatient. Elevated troponins - be myoview as inpatient - possible type2/demand ischemia. Cardiology recommends adding ASA 81 mg daily as there appears to be a small - moderate size inferior infarct on nuclear exam. Possible mitral valve sclerosis with Dr. Peterson. No further recommend testing at this time. Inflammatory markers added on this am and are pending. Low suspcion for endocarditis but inflammtory marker should be followed with f/u with cardiology after discharge for repeat echo, MAIA not recommended at this time. Blood cx negative. asymptomatic (6) Troponin level elevated Comment: - see above - asymptomatic (7) BPH (benign prostatic hyperplasia) Comment: continue finasteride (8) Chronic kidney disease Comment: Stable. Do not know baseline creatinine. (9) HTN (hypertension) Comment: started on metorpol yesterday, dose increase today - BP wnl Cardiology restarted Lisinopril (home med) today (10) Hypokalemia Comment: resolved (11) Hypomagnesemia Comment: Mag 3gms IV given today repeat in am (12) DVT prophylaxis Comment: Jolene (13) Full code status Status and Disposition: inpatient. Will need subacute rehab
[2019-08-25] MEDS ORDERED: Aspirin 81 mg CHEW TAB* 81 MG TAB.CHEW PO ONE ×2 (10:44→10:59)
[2019-08-25 10:51] LABS: Erythrocyte Sed Rate 43 mm/Hr (0-19)
[2019-08-25] MEDS: Atorvastatin* 80 MG TAB PO SCH (17:48)
[2019-08-25] MEDS: Insulin GLARGINE(*) 1 UNITS UNIT SUBCUT SCH (17:48)
[2019-08-26 06:37] LABS: ABS Lymphocytes 0.5 10^3/ul (1.0-4.8); ABS Monocytes 0.5 10^3/ul (0-0.8); ABS Neutrophils 4.1 10^3/ul (1.5-7.7); Eosinophil % 0.2 %; Hematocrit 39 % (42-52); Hemoglobin 13.4 g/dL (14.0-18.0); Lymphocyte % 10.1 %; Mean Corpuscular HGB Conc 34 g/dL (31-36); Mean Corpuscular Hemoglobin 30 pg (27-31); Mean Corpuscular Volume 87 fL (80-94); Mean Platelet Volume 8.2 fL (7.4-10.4); Platelet Count 167 10^3/uL (150-450); Red Blood Count 4.54 10^6 /uL (4.18-5.48); Red Cell Distribution Width 15 % (10-15); White Blood Count 5.2 10^3/uL (3.5-10.8)
[2019-08-26 06:57] LABS: BUN/Creatinine Ratio 15.7 (8-20); Calcium 8.3 mg/dL (8.6-10.3); EGFR African American 59.2 (>60); EGFR Non-African American 48.9 (>60); Magnesium 1.8 mg/dL (1.9-2.7); Potassium 3.9 mmol/L (3.5-5.0)
[2019-08-26] MEDS: Insulin LISPRO* 1 UNITS UNIT SUBCUT SCH ×4 (08:19→21:51)
[2019-08-26] MEDS ORDERED: Aspirin 81 mg CHEW TAB* 81 MG TAB.CHEW PO SCH (09:00)
[2019-08-26] MEDS: Metoprolol Succinate XL TAB* 25 MG PO SCH (09:08)
[2019-08-26] MEDS: levETIRAcetam TAB* 500 MG PO SCH ×2 (09:09→21:51)
[2019-08-26] MEDS: Finasteride TAB* 5 MG PO SCH (09:09)
[2019-08-26] MEDS: Multivitamins/Minerals TAB PO SCH (09:09)
[2019-08-26] MEDS: Apixaban* 5 MG TAB PO SCH ×2 (09:09→21:51)
[2019-08-26] MEDS: Aspirin 81 mg CHEW TAB* 81 MG TAB.CHEW PO SCH (09:09)
[2019-08-26] MEDS: Lisinopril TAB* 5 MG PO SCH (09:09)
[2019-08-26] MEDS: Folic Acid TAB* 1 MG PO SCH (09:09)
[2019-08-26] MEDS: Thiamine TAB* 100 MG TAB PO SCH (09:09)
[2019-08-26] MEDS ORDERED: Magnesium Sulfate 2 GM IV* 2 GM/50 ML BAG IVPB ONE (09:27)
--- NOTE | 2019-08-26 14:24 | PN ---
Subjective Date of Service: 08/26/19 Interval History: patient offers no complaints today. he admits he has "problems with my memory" and agrees to go to rehab. he denies any abdominal pain, dysuria or other urinary symptoms, N/V. fever or chills. Objective Active Medications: Acetaminophen (Tylenol Tab*) 650 mg PO Q6H PRN PRN Reason: PAIN - MILD Last Admin: 08/25/19 04:07 Dose: 650 mg Apixaban (Eliquis*) 5 mg PO BID [facility] Last Admin: 08/26/19 09:09 Dose: 5 mg Aspirin (Aspirin 81 Mg Chew Tab*) 81 mg PO DAILY [facility] Last Admin: 08/26/19 09:09 Dose: 81 mg Atorvastatin Calcium (Lipitor*) 80 mg PO 1700 [facility] Last Admin: 08/25/19 17:48 Dose: 80 mg Dextrose (D50w Syringe 50 Ml*) 12.5 gm IV PUSH .FOR FS < 60 - SS PRN PRN Reason: FS < 60 Finasteride (Proscar Tab*) 5 mg PO DAILY [facility] Last Admin: 08/26/19 09:09 Dose: 5 mg Folic Acid (Folvite Tab*) 1 mg PO DAILY [facility] Last Admin: 08/26/19 09:09 Dose: 1 mg Insulin Glargine (Lantus(*)) 18 units SUBCUT Q24H [facility] Last Admin: 08/25/19 17:48 Dose: 18 unit Insulin Human Lispro (Humalog*) 0 units SUBCUT ACHS [facility]; Protocol Last Admin: 08/26/19 11:30 Dose: Not Given Levetiracetam (Keppra Tab*) 500 mg PO BID [facility] Stop: 09/06/19 08:59 Last Admin: 08/26/19 09:09 Dose: 500 mg Lisinopril (Prinivil Tab*) 2.5 mg PO DAILY [facility] Last Admin: 08/26/19 09:09 Dose: 2.5 mg Metoprolol Succinate (Toprol Xl Tab*) 25 mg PO DAILY [facility] Last Admin: 08/26/19 09:08 Dose: 25 mg Multivitamins/Minerals (Theragran/Minerals Tab*) 1 tab PO DAILY [facility] Last Admin: 08/26/19 09:09 Dose: 1 tab Thiamine HCl (Vitamin B-1 Tab*) 100 mg PO DAILY [facility] Last Admin: 08/26/19 09:09 Dose: 100 mg Vital Signs - 8 hr 08/26/19 08/26/19 08/26/19 07:15 08:00 11:15 Temperature 98 F 99.4 F Pulse Rate 62 82 Respiratory 16 16 20 Rate Blood Pressure 139/80 154/90 (mmHg) O2 Sat by Pulse 98 95 Oximetry Oxygen Devices in Use Now: None Appearance: A+O x3 - forgetful. in NAD Eyes: No Scleral Icterus, PERRLA Ears/Nose/Mouth/Throat: Mucous Membranes Moist Respiratory: Symmetrical Chest Expansion and Respiratory Effort, Clear to Auscultation Cardiovascular: NL Sounds; No Murmurs; No JVD, No Edema Abdominal: NL Sounds; No Tenderness; No Distention Extremities: No Edema, No Clubbing, Cyanosis Neurological: Alert and Oriented x 3, NL Sensation, NL Muscle Strength and Tone Lines/Tubes/Other Access: Clean, Dry and Intact Peripheral IV Nutrition: Taking PO's Result Diagrams: 08/26/19 06:21 08/26/19 06:21 Microbiology and Other Data: Microbiology 08/20/19 23:10 Urine Culture - Final Urine 08/20/19 22:04 Aerobic Blood Culture - Preliminary Blood Venous No Growth Day 1 Anaerobic Blood Culture - Preliminary No Growth Day 1 08/20/19 22:10 Aerobic Blood Culture - Preliminary Blood Venous No Growth Day 1 Anaerobic Blood Culture - Preliminary No Growth Day 1 Assess/Plan/Problems-Billing Assessment: patient is a 79 yo male with a PMH of type 2 diabetes, HTN, HLD, BPH, 4.3 cm transthoracic ascending aortic aneurysm, and CKD who presented with AMS per EMS noted he had a seizure enroute to the hospital and another one in the ER thought to be secondary to hyperosmolar nonketotic state and acute hypercapinic respiratory failure requiring BIPAP, also found to have new afib/flutter, elevated troponin. Concerned about noncompliance and possible underlying cognitive decline. Patient back to baseline - now spiking fevers - possible UTI - Patient Problems (1) Seizures Comment: Seizures witnessed via EMS as well as seizure in ED. started on Keppra per neurology, will titrate off as his seizures were very likely provoked by metabolic derrangement with HHS Has not had any further seizures CTA of the head was negative for occulsion or stenosis Alcohol level 11 on admission, pt denies alcohol intake. On [facility] protocol, no signs of withdrawl -> plan to DC [place] Keppra 500mg PO BID X14 days, then decrease by 250mg daily until off (250/500 on 09/03, 250/250 09/04. 250 on 09/05 then DC - per , started PO dosing on 08/22 Continue precautions (2) Hyperosmolar non-ketotic state due to type 2 diabetes mellitus Comment: Has resolved. Unlcear etilogy. known hx of DMII treated with glipizide , appears he is noncomplaint with medication. Does not appear to have an infectcious process. HgbA1C 10.6 Starting patient on insulin therapy - much better control Diabetes education Increase lantus to 18un q24hr Lispor SS AC (3) Urine culture positive Comment: - urine cx on admission negative - 2nd urine cx growing klebsella 100K, ecoli 10-20K - poly-organisms probably colonization but now is spiking fevers. - 2nd urinalysis - > does show nitrates and WBCs, trace leukocytes, but no noted bacteria - Side consulted ID - plan to start augmentin - await sensitivity - patient is asymptomatic - but is also noted to be a poor historian (4) Hypercapnic respiratory failure Comment: - resolved. seemed to be related to sedation; ABG showed respiratory acidosis - > had significant improvement with BiPAP (5) Lactic acid acidosis Comment: resolved appears to be secondary to seizures. low suspicion for acute infections. (6) Arrhythmia Comment: Newly dx PAF/AFl. Chads vasc 4 -> started on eliquis and Troprol 12.5 mg yesterday. Asymptomatic. Intermittent AF/AL noted on tele strips. cardiology increased Toprol to 25 mg/day. Dr. Anand ok with starting anticoagulation Will continue to monitor and replete K and Mg as needed. Goal for KCL 4-4.5. Mg + >2 Appreciate cardiology consult, started on Eliquis, and recommend BB for now. Consider sleep study as outpatient. Elevated troponins - be myoview as inpatient - possible type2/demand ischemia. Cardiology recommends adding ASA 81 mg daily as there appears to be a small - moderate size inferior infarct on nuclear exam. Possible mitral valve sclerosis with Dr. Peterson. No further recommend testing at this time. Inflammatory markers added on this am and are pending. Low suspcion for endocarditis but inflammtory marker should be followed with f/u with cardiology after discharge for repeat echo, MAIA not recommended at this time. Blood cx negative. asymptomatic (7) Troponin level elevated Comment: - see above - asymptomatic (8) BPH (benign prostatic hyperplasia) Comment: continue finasteride (9) Chronic kidney disease Comment: Stable. Do not know baseline creatinine. (10) HTN (hypertension) Comment: started on metorpol yesterday, dose increase today - BP wnl Cardiology restarted Lisinopril 08/24 (11) Hypokalemia Comment: resolved (12) Hypomagnesemia Comment: Mag 2 gms IV given today repeat in am (13) DVT prophylaxis Comment: Jolene (14) Full code status Status and Disposition: inpatient. Will need subacute rehab
[2019-08-26] MEDS ORDERED: Amoxicillin/Clavulanate TAB* 875 MG PO ONE (15:30)
[2019-08-26] MEDS: Acetaminophen TAB* 325 MG PO PRN (15:49)
[2019-08-26] MEDS ORDERED: Zosyn per Pharmacy* NOTE FOLLOW UP SCH (17:00)
[2019-08-26] MEDS: Insulin GLARGINE(*) 1 UNITS UNIT SUBCUT SCH (17:39)
[2019-08-26] MEDS: Atorvastatin* 80 MG TAB PO SCH (17:39)
[2019-08-26] MEDS ORDERED: Piperacillin/Tazobac ADVAN(*) 3.375 GM in NS 0.9% 100 ML* 100 ML IVPB ONE (18:00)
--- NOTE | 2019-08-26 20:25 | PN ---
Progress Note - Progress Note Date of Service: 08/26/19 Note: Paged for low BP: 80's systolic Glucose: 150s Patient on exam: alert to self. Able to follow commands but does fall back to sleep. Sitting up in chair Will give 1L LR this evening. Had blood cultures taken earlier today when he was febrile. Continue to monitor closely
[2019-08-26] MEDS ORDERED: Lactated Ringers 1000 ML Bag* 1,000 ML IV SCH (21:00)
[2019-08-26] MEDS: ZOSYN 3.375 GM Q8H per EXTENDED INFUSION IVPB SCH ×2 (22:20)
[2019-08-27] MEDS ORDERED: NS 0.9% 1000 ML** 1,000 ML IV SCH (01:30)
[2019-08-27] MEDS ORDERED: NS 0.9% 1000 ML** 1,000 ML IV ONE (03:25)
[2019-08-27] MEDS: NS 0.9% 1000 ML** 1,000 ML IV SCH ×2 (04:48→15:44)
[2019-08-27] MEDS: ZOSYN 3.375 GM Q8H per EXTENDED INFUSION IVPB SCH ×2 (05:25)
[2019-08-27] MEDS ORDERED: Amoxicillin/Clavulanate TAB* 875 MG PO SCH (06:00)
[2019-08-27 07:27] LABS: CO2 Carbon Dioxide 20 mmol/L (22-32); Calcium 7.5 mg/dL (8.6-10.3); Chloride 103 mmol/L (101-111); Sodium 132 mmol/L (135-145)
[2019-08-27 07:32] LABS: Anion Gap 9 mmol/L (2-11); BUN/Creatinine Ratio 17.9 (8-20); Blood Urea Nitrogen 29 mg/dL (6-24); EGFR Non-African American 41.3 (>60); Glucose 65 mg/dL (70-100)
[2019-08-27] MEDS: Insulin LISPRO* 1 UNITS UNIT SUBCUT SCH ×4 (07:41→20:48)
[2019-08-27] MEDS: Lisinopril TAB* 5 MG PO SCH (08:15)
[2019-08-27] MEDS: Metoprolol Succinate XL TAB* 25 MG PO SCH (08:16)
--- NOTE | 2019-08-27 08:21 | PN ---
Subjective Date of Service: 08/27/19 Interval History: patient sitting up in chair eating lunch - he reports he "feels great". Denies any complaints. Desnt remember feeling sick last night. the patient appears much better, alert and bright on exam today Objective Active Medications: Acetaminophen (Tylenol Tab*) 650 mg PO Q6H PRN PRN Reason: PAIN - MILD Last Admin: 08/26/19 15:49 Dose: 650 mg Apixaban (Eliquis*) 5 mg PO BID [facility] Last Admin: 08/26/19 21:51 Dose: 5 mg Aspirin (Aspirin 81 Mg Chew Tab*) 81 mg PO DAILY [facility] Last Admin: 08/26/19 09:09 Dose: 81 mg Atorvastatin Calcium (Lipitor*) 80 mg PO 1700 [facility] Last Admin: 08/26/19 17:39 Dose: 80 mg Dextrose (D50w Syringe 50 Ml*) 12.5 gm IV PUSH .FOR FS < 60 - SS PRN PRN Reason: FS < 60 Finasteride (Proscar Tab*) 5 mg PO DAILY [facility] Last Admin: 08/26/19 09:09 Dose: 5 mg Folic Acid (Folvite Tab*) 1 mg PO DAILY [facility] Last Admin: 08/26/19 09:09 Dose: 1 mg Piperacillin Sod/Tazobactam (Sod 3.375 gm/ Sodium Chloride) 100 mls @ 25 mls/ hr IVPB Q8H [facility] Last Admin: 08/27/19 05:25 Dose: 25 mls/hr Sodium Chloride (Ns 0.9% 1000 Ml) 1,000 mls @ 100 mls/hr IV PER RATE [facility] Last Admin: 08/27/19 04:48 Dose: 100 mls/hr Insulin Glargine (Lantus(*)) 10 units SUBCUT Q24H [facility] Insulin Human Lispro (Humalog*) 0 units SUBCUT ACHS [facility]; Protocol Last Admin: 08/27/19 07:41 Dose: Not Given Levetiracetam (Keppra Tab*) 500 mg PO BID [facility] Stop: 09/06/19 08:59 Last Admin: 08/26/19 21:51 Dose: 500 mg Lisinopril (Prinivil Tab*) 2.5 mg PO DAILY [facility] Last Admin: 08/27/19 08:15 Dose: Not Given Metoprolol Succinate (Toprol Xl Tab*) 25 mg PO DAILY [facility] Last Admin: 08/27/19 08:16 Dose: Not Given Multivitamins/Minerals (Theragran/Minerals Tab*) 1 tab PO DAILY [facility] Last Admin: 08/26/19 09:09 Dose: 1 tab Pharmacy Consult (Zosyn Per Pharmacy*) 1 note FOLLOW UP .ZOSYN PER PHARMACY [facility] Thiamine HCl (Vitamin B-1 Tab*) 100 mg PO DAILY [facility] Last Admin: 08/26/19 09:09 Dose: 100 mg Vital Signs - 8 hr 08/27/19 08/27/19 08/27/19 03:30 03:39 07:15 Temperature 97.3 F 98.7 F Pulse Rate 68 67 Respiratory 24 22 20 Rate Blood Pressure 83/54 96/60 95/50 (mmHg) O2 Sat by Pulse 96 96 Oximetry 08/27/19 07:30 Temperature Pulse Rate Respiratory 18 Rate Blood Pressure (mmHg) O2 Sat by Pulse Oximetry Oxygen Devices in Use Now: None Appearance: elderly male, alert to self and place, confused at baseline Eyes: No Scleral Icterus, PERRLA Ears/Nose/Mouth/Throat: NL Teeth, Lips, Gums, Mucous Membranes Moist Neck: NL Appearance and Movements; NL JVP Respiratory: Symmetrical Chest Expansion and Respiratory Effort, Clear to Auscultation Cardiovascular: - - irregulary irregaulr Extremities: No Edema, No Clubbing, Cyanosis Skin: - - multipl eareas of ecchymosis on arms in different stages of healing Neurological: Alert and Oriented x 3, NL Sensation, NL Muscle Strength and Tone Lines/Tubes/Other Access: Clean, Dry and Intact Peripheral IV Nutrition: Taking PO's Result Diagrams: 08/27/19 12:55 08/27/19 12:55 Microbiology and Other Data: Microbiology 08/20/19 23:10 Urine Culture - Final Urine 08/20/19 22:04 Aerobic Blood Culture - Preliminary Blood Venous No Growth Day 1 Anaerobic Blood Culture - Preliminary No Growth Day 1 08/20/19 22:10 Aerobic Blood Culture - Preliminary Blood Venous No Growth Day 1 Anaerobic Blood Culture - Preliminary No Growth Day 1 Assess/Plan/Problems-Billing Assessment: patient is a 79 yo male with a PMH of type 2 diabetes, HTN, HLD, BPH, 4.3 cm transthoracic ascending aortic aneurysm, and CKD who presented with AMS per EMS noted he had a seizure enroute to the hospital and another one in the ER thought to be secondary to hyperosmolar nonketotic state and acute hypercapinic respiratory failure requiring BIPAP, also found to have new afib/flutter, elevated troponin -> found to have abnormal echo and nuclear stress test. cardiolgy felt medical management and follow up as an outpatient. Concerned about noncompliance and possible underlying cognitive decline which has been confirmed by friends & family. Patient back to baseline. Was ready for discharge and pending subacute - when 08/25 he started spiking fevers, increased confusion -> sepsis work up revealed positive blood cultures growing staph areus. - Patient Problems (1) Bacteremia Comment: - unclear etiology - Per echo 08/21/19 there was a 0.6 cm x 0.9 cm mobile calcific echodensity at the posterior chordal structure likely representing sclerosis asscoiated with MAC, however not able to exclude vegetation or cardiac mass. Cardiology felt this was inconclusive and could f/u as outpatient - on admission he did not present with infectcious picture. Initial blood cultures were negative. initial urine cx negative - 2nd urine cx growing klebsella 100K, ecoli 10-20K - poly- organisms probably colonization? 08/25 starting spiking fevers -> blood cx sent and grew staph areus 08/12 Switched from zoysn to Cefazolin Id to consult thursday. Discussed over phone - recommended holding off on MAIA for now. - Repeat blood cx (2) Abnormal echocardiogram Comment: - please see cardiolgy note for full details - echo showed possible vegetation on valve (3) Seizures Comment: Seizures witnessed via EMS as well as seizure in ED. started on Keppra per neurology, will titrate off as his seizures were very likely provoked by metabolic derrangement with HHS Has not had any further seizures CTA of the head was negative for occulsion or stenosis Alcohol level 11 on admission, pt denies alcohol intake. Was on [facility] protocol, no signs of withdrawl M Keppra 500mg PO BID X14 days, then decrease by 250mg daily until off (250/500 on 09/03, 250/250 09/04. 250 on 09/05 then DC - per , started PO dosing on 08/22 Continue precautions (4) Hyperosmolar non-ketotic state due to type 2 diabetes mellitus Comment: Has resolved. Unlcear etilogy. known hx of DMII treated with glipizide , appears he is noncomplaint with medication. Does not appear to have an infectcious process. HgbA1C 10.6 Starting patient on insulin therapy - much better control Diabetes education Lantus 15 units Qpm (5) Hypercapnic respiratory failure Comment: - resolved. seemed to be related to sedation; ABG showed respiratory acidosis - > had significant improvement with BiPAP (6) Lactic acid acidosis Comment: resolved appears to be secondary to seizures. low suspicion for acute infections. (7) Arrhythmia Comment: Newly dx PAF/AFl. Chads vasc 4 -> started on eliquis and Troprol 12.5 mg yesterday. Asymptomatic. Intermittent AF/AL noted on tele strips. cardiology increased Toprol to 25 mg/day. Dr. Cheng navarro with starting anticoagulation Will continue to monitor and replete K and Mg as needed. Goal for KCL 4-4.5. Mg + >2 Appreciate cardiology consult, started on Eliquis, and recommend BB for now. Consider sleep study as outpatient. (8) Troponin level elevated Comment: Elevated troponins - be myoview as inpatient -Cardiology recommends adding ASA 81 mg daily as there appears to be a small - moderate size inferior infarct on nuclear exam. continue BB (9) BPH (benign prostatic hyperplasia) Comment: continue finasteride (10) Chronic kidney disease Comment: Stable. Do not know baseline creatinine. (11) HTN (hypertension) Comment: started on metorpol Cardiology restarted Lisinopril 08/24 (12) Hypokalemia Comment: resolved (13) Hypomagnesemia Comment: wnls (14) DVT prophylaxis Comment: Jolene (15) Full code status Status and Disposition: inpatient. Will need subacute rehab. Will need PICC line when blood cultures clear
[2019-08-27] MEDS: Thiamine TAB* 100 MG TAB PO SCH (08:26)
[2019-08-27] MEDS: Finasteride TAB* 5 MG PO SCH (08:26)
[2019-08-27] MEDS: Folic Acid TAB* 1 MG PO SCH (08:26)
[2019-08-27] MEDS: Apixaban* 5 MG TAB PO SCH ×2 (08:26→20:49)
[2019-08-27] MEDS: Multivitamins/Minerals TAB PO SCH (08:26)
[2019-08-27] MEDS: levETIRAcetam TAB* 500 MG PO SCH ×2 (08:27→20:49)
[2019-08-27] MEDS: Aspirin 81 mg CHEW TAB* 81 MG TAB.CHEW PO SCH (08:27)
[2019-08-27] MEDS ORDERED: ceFAZolin VIAL(*) 2 GM in NS 0.9% 100 ML* 100 ML IVPB SCH (09:00)
[2019-08-27] MEDS: ceFAZolin* 2 GM* Q8H (Duplex) IVPB SCH ×2 (09:52→17:03)
[2019-08-27 13:01] LABS: Hematocrit 38 % (42-52); Mean Corpuscular HGB Conc 34 g/dL (31-36); Mean Corpuscular Hemoglobin 30 pg (27-31); Mean Corpuscular Volume 87 fL (80-94); Platelet Count 177 10^3/uL (150-450); Red Blood Count 4.39 10^6 /uL (4.18-5.48); Red Cell Distribution Width 15 % (10-15); White Blood Count 9.2 10^3/uL (3.5-10.8)
[2019-08-27 13:41] LABS: ABS Lymphocytes 0.3 10^3/ul (1.0-4.8); ABS Neutrophils 7.9 10^3/ul (1.5-7.7); Eosinophil % 0.2 %; Lymphocyte % 3.7 %
[2019-08-27] MEDS: Atorvastatin* 80 MG TAB PO SCH (16:55)
[2019-08-27] MEDS: Insulin GLARGINE(*) 1 UNITS UNIT SUBCUT SCH (20:49)
[2019-08-27] MEDS ORDERED: Insulin GLARGINE(*) 1 UNITS UNIT SUBCUT SCH (21:00)
[2019-08-28] MEDS: ceFAZolin* 2 GM* Q8H (Duplex) IVPB SCH ×3 (01:06→16:44)
[2019-08-28] MEDS: NS 0.9% 1000 ML** 1,000 ML IV SCH (01:55)
[2019-08-28 07:13] LABS: C Reactive Protein 91.31 mg/L (<8.01)
[2019-08-28] MEDS: Insulin LISPRO* 1 UNITS UNIT SUBCUT SCH ×4 (08:23→21:30)
[2019-08-28 09:31] LABS: BUN/Creatinine Ratio 18.7 (8-20); Calcium 7.7 mg/dL (8.6-10.3); EGFR African American 52.6 (>60); EGFR Non-African American 43.5 (>60); Potassium 3.7 mmol/L (3.5-5.0)
[2019-08-28] MEDS: Finasteride TAB* 5 MG PO SCH (09:51)
[2019-08-28] MEDS: Aspirin 81 mg CHEW TAB* 81 MG TAB.CHEW PO SCH (09:51)
[2019-08-28] MEDS: Folic Acid TAB* 1 MG PO SCH (09:51)
[2019-08-28] MEDS: Apixaban* 5 MG TAB PO SCH ×2 (09:51→21:30)
[2019-08-28] MEDS: Multivitamins/Minerals TAB PO SCH (09:51)
[2019-08-28] MEDS: levETIRAcetam TAB* 500 MG PO SCH ×2 (09:52→21:30)
[2019-08-28] MEDS: Lisinopril TAB* 5 MG PO SCH (09:52)
[2019-08-28] MEDS: Metoprolol Succinate XL TAB* 25 MG PO SCH (09:53)
[2019-08-28] MEDS: Thiamine TAB* 100 MG TAB PO SCH (09:53)
--- NOTE | 2019-08-28 14:26 | PN ---
Subjective Date of Service: 08/28/19 Interval History: Patient overall without complaints. Denies fever/chills, chest pain, visual changes, difficulty breathing, abd pain, n/v, dysuria. Discussed re-checking urine for staph aureus with microbiology dept. Unfortunately, the urine collected 08/25/19 has already been discarded. Objective Active Medications: Acetaminophen (Tylenol Tab*) 650 mg PO Q6H PRN PRN Reason: PAIN - MILD Last Admin: 08/26/19 15:49 Dose: 650 mg Apixaban (Eliquis*) 5 mg PO BID [facility] Last Admin: 08/28/19 09:51 Dose: 5 mg Aspirin (Aspirin 81 Mg Chew Tab*) 81 mg PO DAILY [facility] Last Admin: 08/28/19 09:51 Dose: 81 mg Atorvastatin Calcium (Lipitor*) 80 mg PO 1700 [facility] Last Admin: 08/27/19 16:55 Dose: 80 mg Dextrose (D50w Syringe 50 Ml*) 12.5 gm IV PUSH .FOR FS < 60 - SS PRN PRN Reason: FS < 60 Finasteride (Proscar Tab*) 5 mg PO DAILY [facility] Last Admin: 08/28/19 09:51 Dose: 5 mg Folic Acid (Folvite Tab*) 1 mg PO DAILY [facility] Last Admin: 08/28/19 09:51 Dose: 1 mg Cefazolin Sodium/Dextrose (Kefzol 2 Gm Premix In Ors(*)) 2 gm in 50 mls @ 100 mls/hr IVPB Q8H [facility] Last Admin: 08/28/19 09:53 Dose: 100 mls/hr Insulin Glargine (Lantus(*)) 15 units SUBCUT Q24H [facility] Last Admin: 08/27/19 20:49 Dose: 15 units Insulin Human Lispro (Humalog*) 0 units SUBCUT ACHS [facility]; Protocol Last Admin: 08/28/19 11:35 Dose: Not Given Levetiracetam (Keppra Tab*) 500 mg PO BID [facility] Stop: 09/06/19 08:59 Last Admin: 08/28/19 09:52 Dose: 500 mg Lisinopril (Prinivil Tab*) 2.5 mg PO DAILY [facility] Last Admin: 08/28/19 09:52 Dose: 2.5 mg Metoprolol Succinate (Toprol Xl Tab*) 25 mg PO DAILY [facility] Last Admin: 08/28/19 09:53 Dose: 25 mg Multivitamins/Minerals (Theragran/Minerals Tab*) 1 tab PO DAILY [facility] Last Admin: 08/28/19 09:51 Dose: 1 tab Pharmacy Consult (Zosyn Per Pharmacy*) 1 note FOLLOW UP .ZOSYN PER PHARMACY [facility] Thiamine HCl (Vitamin B-1 Tab*) 100 mg PO DAILY [facility] Last Admin: 08/28/19 09:53 Dose: 100 mg Vital Signs - 8 hr 08/28/19 08/28/19 07:37 11:15 Temperature 97.6 F 98.3 F Pulse Rate 63 67 Respiratory 16 18 Rate Blood Pressure 124/68 95/57 (mmHg) O2 Sat by Pulse 93 99 Oximetry Oxygen Devices in Use Now: None Appearance: Elderly, white male, laying in bed, appearing comfortable and in NAD Eyes: No Scleral Icterus, - - PERRL Ears/Nose/Mouth/Throat: Mucous Membranes Moist Neck: NL Appearance and Movements; NL JVP, Trachea Midline Respiratory: Symmetrical Chest Expansion and Respiratory Effort, Clear to Auscultation Cardiovascular: NL Sounds; No Murmurs; No JVD, RRR Abdominal: - - abd soft, nontender, nondistended Skin: - - small excoriations to left arm which are healing well, no other wounds noted and no evidence of infection/purulence throughout body thorough inspection Neurological: Alert and Oriented x 3, - - able to move all extremities Result Diagrams: 08/27/19 12:55 08/28/19 06:38 Microbiology and Other Data: Microbiology 08/20/19 23:10 Urine Culture - Final Urine 08/20/19 22:04 Aerobic Blood Culture - Preliminary Blood Venous No Growth Day 1 Anaerobic Blood Culture - Preliminary No Growth Day 1 08/20/19 22:10 Aerobic Blood Culture - Preliminary Blood Venous No Growth Day 1 Anaerobic Blood Culture - Preliminary No Growth Day 1 Assess/Plan/Problems-Billing Assessment: patient is a 79 yo male with a PMH of type 2 diabetes, HTN, HLD, BPH, 4.3 cm transthoracic ascending aortic aneurysm, and CKD who presented with AMS. Per EMS , he had a seizure en route to the hospital and another one in the ER thought to be secondary to hyperosmolar nonketotic state and acute hypercapinic respiratory failure requiring BIPAP, also found to have new afib/flutter, elevated troponin -> found to have abnormal echo and nuclear stress test. Cardiology felt medical management and follow up as an outpatient. Concerned about noncompliance and possible underlying cognitive decline which has been confirmed by friends & family. Patient back to baseline. Was ready for discharge and pending subacute - when 08/25 he started spiking fevers, increased confusion -> sepsis work up revealed positive blood cultures growing staph aureus. - Patient Problems (1) Bacteremia Current Visit: Yes Status: Acute Code(s): R78.81 - BACTEREMIA SNOMED Code( s): 0908450 Comment: - unclear source - completed skin check today, no infected wounds - Per echo 08/21/19 there was a 0.6 cm x 0.9 cm mobile calcific echodensity at the posterior chordal structure likely representing sclerosis asscoiated with MAC, however not able to exclude vegetation or cardiac mass. Cardiology felt this was inconclusive and could f/u as outpatient - on admission he did not present with infectcious picture. Initial blood cultures were negative. However , on 08/25 starting spiking fevers and new blood cultures sent - now growing staph aureus - continue cefazolin - ID will consult tomorrow, may need MAIA but ID recommends holding off until they eval - repeat blood cx 08/27/19 still pending - has been afebrile >24 hours, WBCs normalized (2) Abnormal echocardiogram Current Visit: Yes Status: Acute Code(s): R93.1 - ABNORMAL FINDINGS ON DX IMAGING OF HEART AND COR CIRC SNOMED Code(s): 533136965 Comment: - please see cardiolgy note for full details - echo showed possible vegetation on valve as previously discussed (3) Hyperosmolar non-ketotic state due to type 2 diabetes mellitus Current Visit: Yes Status: Acute Code(s): E11.00 - TYPE 2 DIAB W HYPROSM W/ O NONKET HYPRGLY-HYPROS COMA ([facility]) SNOMED Code(s): 297392943 Comment: -admitted 08/21/19 with glucose >700 -HHS has since resolved -appears he is noncompliant with po medications but concern for acute infection with abnormal echo findings -HgbA1C 10.6 indicates poor control -Started insulin therapy during this hospitalization with good BGs, continue lantus 15U and lispro SS (4) Seizures Current Visit: Yes Status: Acute Code(s): R56.9 - UNSPECIFIED CONVULSIONS SNOMED Code(s): 52516150 Comment: -Seizures witnessed via EMS as well as seizure in ED. -likely provoked by metabolic derrangement with HHS -Has not had any further seizures inpatient -CTA of the head was negative for acute findings -Alcohol level 11 on admission, pt denies alcohol intake. Was on [facility] protocol, no signs of withdrawl, possibly contributing factor to seizure onset -started on Keppra per neurology, will titrate as schedule below -Keppra 500mg PO BID X14 days, then decrease by 250mg daily until off (250/500 on 09/03, 250/250 09/04. 250 on 09/05 then DC - per ); started PO dosing on 08/22 -Continue precautions -no prior hx of seizures (5) HTN (hypertension) Current Visit: Yes Status: Acute Code(s): I10 - ESSENTIAL (PRIMARY) HYPERTENSION SNOMED Code(s): 10776149 Comment: -continue lisinopril and metoprolol (6) Lactic acid acidosis Current Visit: Yes Status: Acute Code(s): E87.2 - ACIDOSIS SNOMED Code(s) : 80458732 Comment: -resolved -initially thought to be secondary to seizure, but now with additional suspicion for acute infection due to concern for possible endocarditis; however blood cultures were initially negative at admission (7) BPH (benign prostatic hyperplasia) Current Visit: Yes Status: Chronic Code(s): N40.0 - BENIGN PROSTATIC HYPERPLASIA WITHOUT LOWER URINRY TRACT SYMP SNOMED Code(s): 188087277 Comment: -continue finasteride (8) Chronic kidney disease Current Visit: Yes Status: Chronic Code(s): N18.9 - CHRONIC KIDNEY DISEASE, UNSPECIFIED SNOMED Code(s): 842035311 Comment: -Stable. Do not know baseline creatinine. (9) Paroxysmal atrial flutter Current Visit: Yes Status: Acute Code(s): I48.92 - UNSPECIFIED ATRIAL FLUTTER SNOMED Code(s): 865504856 Comment: -started on eliquis during this hospitalization -has been sinus overall on tele -appreciate previous cardiology consult (10) DVT prophylaxis Current Visit: Yes Status: Acute Code(s): Z29.9 - ENCOUNTER FOR PROPHYLACTIC MEASURES, UNSPECIFIED SNOMED Code(s): 536208555 Comment: -Jolene (11) Full code status Current Visit: Yes Status: Acute Code(s): Z78.9 - OTHER SPECIFIED HEALTH STATUS SNOMED Code(s): 172870108 Status and Disposition: inpatient. Will need subacute rehab. Will need PICC line when blood cultures clear
[2019-08-28] MEDS: Atorvastatin* 80 MG TAB PO SCH (16:44)
[2019-08-28] MEDS: Insulin GLARGINE(*) 1 UNITS UNIT SUBCUT SCH (21:30)
[2019-08-29] MEDS: ceFAZolin* 2 GM* Q8H (Duplex) IVPB SCH ×3 (01:31→17:15)
[2019-08-29] MEDS: Insulin LISPRO* 1 UNITS UNIT SUBCUT SCH ×4 (10:08→20:53)
[2019-08-29] MEDS: Folic Acid TAB* 1 MG PO SCH (10:09)
[2019-08-29] MEDS: Thiamine TAB* 100 MG TAB PO SCH (10:09)
[2019-08-29] MEDS: Apixaban* 5 MG TAB PO SCH ×2 (10:09→20:52)
[2019-08-29] MEDS: Lisinopril TAB* 5 MG PO SCH (10:09)
[2019-08-29] MEDS: Finasteride TAB* 5 MG PO SCH (10:09)
[2019-08-29] MEDS: levETIRAcetam TAB* 500 MG PO SCH ×2 (10:09→20:52)
[2019-08-29] MEDS: Metoprolol Succinate XL TAB* 25 MG PO SCH (10:09)
[2019-08-29] MEDS: Aspirin 81 mg CHEW TAB* 81 MG TAB.CHEW PO SCH (10:09)
[2019-08-29] MEDS: Multivitamins/Minerals TAB PO SCH (10:09)
--- NOTE | 2019-08-29 14:44 | PN ---
Subjective Date of Service: 08/29/19 Interval History: Patient without complaints today. Denies joint pain, chest pain, abd pain, difficulty breathing, fever/chills, palpitations. Objective Active Medications: Acetaminophen (Tylenol Tab*) 650 mg PO Q6H PRN PRN Reason: PAIN - MILD Last Admin: 08/26/19 15:49 Dose: 650 mg Apixaban (Eliquis*) 5 mg PO BID [facility] Last Admin: 08/29/19 10:09 Dose: 5 mg Aspirin (Aspirin 81 Mg Chew Tab*) 81 mg PO DAILY [facility] Last Admin: 08/29/19 10:09 Dose: 81 mg Atorvastatin Calcium (Lipitor*) 80 mg PO 1700 [facility] Last Admin: 08/28/19 16:44 Dose: 80 mg Dextrose (D50w Syringe 50 Ml*) 12.5 gm IV PUSH .FOR FS < 60 - SS PRN PRN Reason: FS < 60 Finasteride (Proscar Tab*) 5 mg PO DAILY [facility] Last Admin: 08/29/19 10:09 Dose: 5 mg Folic Acid (Folvite Tab*) 1 mg PO DAILY [facility] Last Admin: 08/29/19 10:09 Dose: 1 mg Cefazolin Sodium/Dextrose (Kefzol 2 Gm Premix In Ors(*)) 2 gm in 50 mls @ 100 mls/hr IVPB Q8H [facility] Last Admin: 08/29/19 10:09 Dose: 100 mls/hr Insulin Glargine (Lantus(*)) 15 units SUBCUT Q24H [facility] Last Admin: 08/28/19 21:30 Dose: 15 units Insulin Human Lispro (Humalog*) 0 units SUBCUT ACHS [facility]; Protocol Last Admin: 08/29/19 12:57 Dose: 6 units Levetiracetam (Keppra Tab*) 500 mg PO BID [facility] Stop: 09/06/19 08:59 Last Admin: 08/29/19 10:09 Dose: 500 mg Lisinopril (Prinivil Tab*) 2.5 mg PO DAILY [facility] Last Admin: 08/29/19 10:09 Dose: 2.5 mg Metoprolol Succinate (Toprol Xl Tab*) 25 mg PO DAILY [facility] Last Admin: 08/29/19 10:09 Dose: 25 mg Multivitamins/Minerals (Theragran/Minerals Tab*) 1 tab PO DAILY [facility] Last Admin: 08/29/19 10:09 Dose: 1 tab Thiamine HCl (Vitamin B-1 Tab*) 100 mg PO DAILY [facility] Last Admin: 08/29/19 10:09 Dose: 100 mg Vital Signs - 8 hr 08/29/19 08/29/19 08/29/19 07:12 08:30 11:32 Temperature 97.7 F 98.6 F Pulse Rate 64 70 Respiratory 20 20 20 Rate Blood Pressure 110/58 115/56 (mmHg) O2 Sat by Pulse 97 98 Oximetry Oxygen Devices in Use Now: Nasal Cannula Appearance: Elderly, white male is laying in bed, appearing comfortable and in NAD Eyes: No Scleral Icterus, - - PERRL Ears/Nose/Mouth/Throat: Mucous Membranes Moist Neck: NL Appearance and Movements; NL JVP, Trachea Midline Respiratory: Symmetrical Chest Expansion and Respiratory Effort, Clear to Auscultation Cardiovascular: NL Sounds; No Murmurs; No JVD, RRR Abdominal: - - abd soft/nontender/nondistended Extremities: No Edema, No Clubbing, Cyanosis Skin: No Rash or Ulcers Neurological: Alert and Oriented x 3 Result Diagrams: 08/27/19 12:55 08/28/19 06:38 Microbiology and Other Data: Microbiology 08/20/19 23:10 Urine Culture - Final Urine 08/20/19 22:04 Aerobic Blood Culture - Preliminary Blood Venous No Growth Day 1 Anaerobic Blood Culture - Preliminary No Growth Day 1 08/20/19 22:10 Aerobic Blood Culture - Preliminary Blood Venous No Growth Day 1 Anaerobic Blood Culture - Preliminary No Growth Day 1 Assess/Plan/Problems-Billing Assessment: patient is a 79 yo male with a PMH of type 2 diabetes, HTN, HLD, BPH, 4.3 cm transthoracic ascending aortic aneurysm, and CKD who presented with AMS. Per EMS , he had a seizure en route to the hospital and another one in the ER thought to be secondary to hyperosmolar nonketotic state and acute hypercapinic respiratory failure requiring BIPAP, also found to have new afib/flutter, elevated troponin -> found to have abnormal echo and nuclear stress test. Cardiology felt medical management and follow up as an outpatient. Concerned about noncompliance and possible underlying cognitive decline which has been confirmed by friends & family. Patient back to baseline. Was ready for discharge and pending subacute - when 08/25 he started spiking fevers, increased confusion -> sepsis work up revealed positive blood cultures growing staph aureus. - Patient Problems (1) Bacteremia Current Visit: Yes Status: Acute Code(s): R78.81 - BACTEREMIA SNOMED Code( s): 9362832 Comment: - unclear source, concern for endocarditis given echocardiogram findings - Per echo 08/21/19 there was a 0.6 cm x 0.9 cm mobile calcific echodensity at the posterior chordal structure likely representing sclerosis asscoiated with MAC, however not able to exclude vegetation or cardiac mass. - Initial blood cultures were negative. However, on 08/25 starting spiking fevers and new blood cultures sent - now growing staph aureus - repeat blood cultures staph simulans, unfortunately in 2/2 bottles - continue cefazolin - appreciate ID consult, may need MAIA but ID recommends holding off for now and repeating bood cultures - repeat cultures from 08/27 pending - has been afebrile >48 hours, WBCs normalized (2) Abnormal echocardiogram Current Visit: Yes Status: Acute Code(s): R93.1 - ABNORMAL FINDINGS ON DX IMAGING OF HEART AND COR CIRC SNOMED Code(s): 445763473 Comment: - please see cardiolgy note for full details - echo showed possible vegetation on valve as previously discussed (3) Hyperosmolar non-ketotic state due to type 2 diabetes mellitus Current Visit: Yes Status: Acute Code(s): E11.00 - TYPE 2 DIAB W HYPROSM W/ O NONKET HYPRGLY-HYPROS COMA ([facility]) SNOMED Code(s): 478915629 Comment: -admitted 08/21/19 with glucose >700 -HHS has since resolved -appears he is noncompliant with po medications but concern for acute infection with abnormal echo findings -HgbA1C 10.6 indicates poor control -Started insulin therapy during this hospitalization with good BGs, continue lantus 15U and lispro SS (4) Seizures Current Visit: Yes Status: Acute Code(s): R56.9 - UNSPECIFIED CONVULSIONS SNOMED Code(s): 24259040 Comment: -Seizures witnessed via EMS as well as seizure in ED. -likely provoked by metabolic derrangement with HHS -Has not had any further seizures inpatient -CTA of the head was negative for acute findings -Alcohol level 11 on admission, pt denies alcohol intake. Was on WAM protocol, no signs of withdrawl, possibly contributing factor to seizure onset -started on Keppra per neurology, will titrate as schedule below -Keppra 500mg PO BID X14 days, then decrease by 250mg daily until off (250/500 on 09/03, 250/250 09/04. 250 on 09/05 then DC - per ); started PO dosing on 08/22 -Continue precautions -no prior hx of seizures (5) Paroxysmal atrial flutter Current Visit: Yes Status: Acute Code(s): I48.92 - UNSPECIFIED ATRIAL FLUTTER SNOMED Code(s): 579636270 Comment: -started on eliquis during this hospitalization -has been sinus overall on tele -appreciate previous cardiology consult (6) HTN (hypertension) Current Visit: Yes Status: Acute Code(s): I10 - ESSENTIAL (PRIMARY) HYPERTENSION SNOMED Code(s): 62208523 Comment: -continue lisinopril and metoprolol (7) BPH (benign prostatic hyperplasia) Current Visit: Yes Status: Chronic Code(s): N40.0 - BENIGN PROSTATIC HYPERPLASIA WITHOUT LOWER URINRY TRACT SYMP SNOMED Code(s): 789334770 Comment: -continue finasteride (8) Chronic kidney disease Current Visit: Yes Status: Chronic Code(s): N18.9 - CHRONIC KIDNEY DISEASE, UNSPECIFIED SNOMED Code(s): 732400419 Comment: -Stable. Do not know baseline creatinine. (9) DVT prophylaxis Current Visit: Yes Status: Acute Code(s): Z29.9 - ENCOUNTER FOR PROPHYLACTIC MEASURES, UNSPECIFIED SNOMED Code(s): 008020451 Comment: -Eliquis (10) Full code status Current Visit: Yes Status: Acute Code(s): Z78.9 - OTHER SPECIFIED HEALTH STATUS SNOMED Code(s): 427057467 Status and Disposition: inpatient. Will need subacute rehab. Will need PICC line when blood cultures clear
--- NOTE | 2019-08-29 15:44 | CONS ---
CONSULTATION REPORT: DATE OF CONSULT: 08/29/19 PRIMARY CARE PROVIDER: Maribel George NP, at the [place] campus. PROVIDER REQUESTING CONSULTATION: Pretty Bucio NP. CONSULTING SERVICE: Infectious Diseases. PROVIDER: Michael Barnes NP ATTENDING PROVIDER: Camilo Bernstein MD* (dictated by Michael Weinberg NP). REASON FOR CONSULT: Staph aureus bacteremia and possible mitral valve endocarditis. IMPRESSION: 1. Staphylococcus aureus bacteremia. The patient initially had no growth in blood cultures on admission, but during his stay after becoming febrile on 08/25, he had repeat blood cultures that returned with 4 out of 4 bottles positive for Staphylococcus aureus. He had repeat blood cultures the following day on 08/27/19 with Staphylococcus simulans in 2 out of 2 bottles. The patient has since been afebrile. He had a transthoracic echocardiogram around the time of his admission that showed "mitral valve appearing moderately calcified with leaflets mildly thickened, a mobile calcific echodensity at the posterior chondral structures measuring 0.6 x 0.9 cm, trace to mild regurgitation, aortic valve with a trileaflet, leaflets mildly thickened, cusp separation at the lower limits of normal, trace regurgitation, tricuspid valve with mild regurgitation. It was felt that the mobile structure could be sclerosis associated with MAC, but cannot exclude vegetation or cardiac mass such as a fibroelastoma". Of note, the initial leukocytosis from the admission resolved. CRP elevated. Differential diagnosis include sclerosis of the mitral valve versus infective endocarditis. He does not have any stigmata of endocarditis. Additionally, I do not see any sites of phlebitis secondary to IV sites. He is noted to have a very slight erythema to the knuckles on the right hand with small edema. Denies any prosthetic material. 2. Diabetes mellitus type 2. 3. Acute hypercarbic respiratory failure. No signs of acute infection seen on chest imaging at the time of admission. There is a possible right miles lobe infiltrate seen on repeat imaging. Denies any respiratory symptoms such as cough or shortness of breath. 4. Lactic acidosis. This was in the setting of a seizure on admission. 5. Acute on chronic kidney disease. Suspected to be prerenal. RECOMMENDATIONS/PLAN: Recommend repeating blood cultures in the morning. For now, we can hold on a transesophageal echocardiogram. He should be continued on cefazolin 2 mg IV every 8 hours. We will make final recommendations based off of the the patient's blood culture results and clinical course. He may require a prolonged course of IV antibiotics in the setting of suspected endocarditis, he is on day 3 of antibiotics. HISTORY OF PRESENT ILLNESS: Mr. Stevenson is a 79-year-old male with past medical history significant for hypertension, diabetes mellitus type 2, hyperlipidemia, BPH, chronic kidney disease, transthoracic aneurysm, who had been in his usual state of health, but was brought to the ER by EMS due to altered mental status after his roommate had noted that he was altered. According to EMS, the patient had seizure activity en route to the hospital Upon arrival in the emergency room he was reportedly seizing and responded to Valium and IV fluids were started. He was receiving 15 L of oxygen via Oxy Mask and oxygen saturations were in the low 90s and he was noted to have a duskiness and mottling appearance. He had a CT of the brain and CTA showing a right MCA with hyperdensity, no significant stenosis or occlusion. A blood gas showing respiratory acidosis and was started on BiPAP. He was referred to the hospitalist's service for admission. He was noted to have leukocytosis. While in the hospital, he was able to be taken off of the BiPAP. On 08/26/19, he was noted to be febrile with a one time fever of 101. He had blood cultures drawn at that time, which returned with 4 out of 4 bottles positive for Staph aureus. He had repeat blood cultures the following day that returned with Staph simulans. His initial blood cultures in the emergency room with no growth. He has remained afebrile since then. His hypercarbic respiratory failure has resolved. He was noted to be on 1 L of oxygen this morning. He has been receiving cefazolin. He had a transthoracic echocardiogram showing mitral valve calcified echodensity could represent infected endocarditis versus sclerosis. The leukocytosis around admission has resolved. He denies any back pain. No prosthetic material present. Denies fevers, chills, weight loss, shortness of breath, joint pain, muscle pain, nausea, vomiting, diarrhea, abdominal pain, urinary symptoms such as urgency, frequency, dysuria. He denies any rash. No recent travel. PAST MEDICAL HISTORY: 1. Hypertension. 2. Diabetes mellitus type 2. 3. Hyperlipidemia. 4. BPH. 5. Chronic kidney disease. 6. Transthoracic aneurysm. PAST SURGICAL HISTORY: Status post cataract extractions. MEDICATIONS: Home Medications: 1. Atorvastatin 80 mg by mouth daily. 2. Lisinopril 10 mg by mouth daily. 3. Finasteride 5 mg by mouth daily. 4. Atenolol 50 mg by mouth daily 5. Glipizide 5 mg by mouth daily. 6. Aspirin 81 mg by mouth daily. Hospital Medications: 1. Acetaminophen 650 mg by mouth every 6 hours as needed for pain. 2. Eliquis 5 mg by mouth twice daily. 3. Aspirin 81 mg by mouth daily. 4. Atorvastatin 80 mg by mouth daily. 5. Cefazolin 2 g IV every 8 hours. 6. Dextrose 12.5 g IV for glucose less than 60. 7. Finasteride 5 mg by mouth daily. 8. Folic acid 1 mg by mouth daily. 9. Lantus insulin 15 units subcutaneous daily. 10. Humalog insulin sliding scale subcutaneous with meals and at bedtime. 11. Keppra 500 mg by mouth twice daily. 12. Lisinopril 2.5 mg by mouth daily. 13. Metoprolol succinate 25 mg by mouth daily. 14. Multivitamin 1 tablet by mouth daily. 15. Thiamine 100 mg by mouth daily. ALLERGIES: No known drug allergies. FAMILY HISTORY: Denies any family history of recurrent or resistant infections , diabetes or cancer. Mother with a history of heart disease. SOCIAL HISTORY: Denies alcohol or recreational drug use. He is a former smoker , quitting in 1978. REVIEW OF SYSTEMS: I performed an 11-point review of systems. All the pertinent positives and negatives are mentioned in the history of present illness. The remaining review of systems are negative. PHYSICAL EXAM: Vital Signs: Temperature 97.7, heart rate 64, respiratory rate 20, O2 sat 97% on 1 L via nasal cannula, blood pressure 110/58. General Appearance: Alert, appears to be in no acute distress, sitting up in a chair. Head: Normocephalic, atraumatic. ENT: Extraocular movements are intact. No subconjunctival hemorrhage. Moist mucous membranes. Neck: Supple. No lymphadenopathy noted. Neurological: Alert and oriented. Cranial nerves II through XII are grossly intact. Moves all extremities. Cardiovascular: Regular rate and rhythm. S1 and S2 present. No murmurs, rubs or gallops heard. Respiratory: No accessory muscle use. Lungs are clear to auscultation bilateral. Abdomen: Bowel sounds present. Abdomen is soft, nontender, and nondistended. Extremities: Mild bilateral lower extremity edema, mostly in the feet and not in the pretibial area. Musculoskeletal: No clubbing or cyanosis noted. He exhibits good strength in all extremities. No nuchal rigidity. No tenderness with palpation of the neck, back or spine. Psychological: Calm and cooperative. Skin: No rashes or abnormalities seen. He is noted to have very subtle erythema across the metacarpophalangeal joints in addition to slight edema to the right hand. DIAGNOSTIC STUDIES/LAB DATA: From 08/28/19, sodium 134, potassium 3.7, chloride 104, CO2 of 23, BUN 29, creatinine 1.55, glucose 81. CBC from 08/27/19 , white blood cell count 9.2, hemoglobin 13, hematocrit 38, platelet count 177. CRP 91.31 on 08/28/19. Please see impression and recommendations outlined above. Recommendations have been discussed with CATIE Petty. Thank you for asking us to see Mr. Stevenson in consultation. The case has been discussed with my attending, Dr. Camilo Bernstein, who agrees with the plan of care. MICHAEL BARNES, SAMMY [id number]/[facility] #: [id number] [facility] HOSPITALAdair
[2019-08-29] MEDS: Atorvastatin* 80 MG TAB PO SCH (17:15)
[2019-08-29] MEDS: Insulin GLARGINE(*) 1 UNITS UNIT SUBCUT SCH (20:53)
[2019-08-30] MEDS: ceFAZolin* 2 GM* Q8H (Duplex) IVPB SCH ×3 (01:02→17:24)
[2019-08-30] MEDS: Insulin LISPRO* 1 UNITS UNIT SUBCUT SCH ×4 (07:43→21:21)
[2019-08-30] MEDS: Apixaban* 5 MG TAB PO SCH ×2 (09:06→21:21)
[2019-08-30] MEDS: Thiamine TAB* 100 MG TAB PO SCH (09:06)
[2019-08-30] MEDS: Folic Acid TAB* 1 MG PO SCH (09:06)
[2019-08-30] MEDS: Multivitamins/Minerals TAB PO SCH (09:06)
[2019-08-30] MEDS: levETIRAcetam TAB* 500 MG PO SCH ×2 (09:07→21:21)
[2019-08-30] MEDS: Metoprolol Succinate XL TAB* 25 MG PO SCH (09:07)
[2019-08-30] MEDS: Lisinopril TAB* 5 MG PO SCH (09:07)
[2019-08-30] MEDS: Aspirin 81 mg CHEW TAB* 81 MG TAB.CHEW PO SCH (09:07)
[2019-08-30] MEDS: Finasteride TAB* 5 MG PO SCH (09:07)
--- NOTE | 2019-08-30 10:35 | PN ---
Subjective Date of Service: 08/30/19 Interval History: Patient without complaints. Denies fever/chills, difficulty breathing, chest pain, abd pain, joint pain. Overall feels like his normal self. Objective Active Medications: Acetaminophen (Tylenol Tab*) 650 mg PO Q6H PRN PRN Reason: PAIN - MILD Last Admin: 08/26/19 15:49 Dose: 650 mg Apixaban (Eliquis*) 5 mg PO BID [facility] Last Admin: 08/30/19 09:06 Dose: 5 mg Aspirin (Aspirin 81 Mg Chew Tab*) 81 mg PO DAILY [facility] Last Admin: 08/30/19 09:07 Dose: 81 mg Atorvastatin Calcium (Lipitor*) 80 mg PO 1700 [facility] Last Admin: 08/29/19 17:15 Dose: 80 mg Dextrose (D50w Syringe 50 Ml*) 12.5 gm IV PUSH .FOR FS < 60 - SS PRN PRN Reason: FS < 60 Finasteride (Proscar Tab*) 5 mg PO DAILY [facility] Last Admin: 08/30/19 09:07 Dose: 5 mg Folic Acid (Folvite Tab*) 1 mg PO DAILY [facility] Last Admin: 08/30/19 09:06 Dose: 1 mg Cefazolin Sodium/Dextrose (Kefzol 2 Gm Premix In Ors(*)) 2 gm in 50 mls @ 100 mls/hr IVPB Q8H [facility] Last Admin: 08/30/19 09:06 Dose: 100 mls/hr Insulin Glargine (Lantus(*)) 15 units SUBCUT Q24H [facility] Last Admin: 08/29/19 20:53 Dose: 15 units Insulin Human Lispro (Humalog*) 0 units SUBCUT ACHS [facility]; Protocol Last Admin: 08/30/19 07:43 Dose: Not Given Levetiracetam (Keppra Tab*) 500 mg PO BID [facility] Stop: 09/06/19 08:59 Last Admin: 08/30/19 09:07 Dose: 500 mg Lisinopril (Prinivil Tab*) 2.5 mg PO DAILY [facility] Last Admin: 08/30/19 09:07 Dose: 2.5 mg Metoprolol Succinate (Toprol Xl Tab*) 25 mg PO DAILY [facility] Last Admin: 08/30/19 09:07 Dose: 25 mg Multivitamins/Minerals (Theragran/Minerals Tab*) 1 tab PO DAILY [facility] Last Admin: 08/30/19 09:06 Dose: 1 tab Thiamine HCl (Vitamin B-1 Tab*) 100 mg PO DAILY [facility] Last Admin: 08/30/19 09:06 Dose: 100 mg Vital Signs - 8 hr 08/30/19 08/30/19 08/30/19 03:15 07:19 07:55 Temperature 98.7 F 97.5 F Pulse Rate 68 49 Respiratory 18 20 18 Rate Blood Pressure 124/73 110/49 (mmHg) O2 Sat by Pulse 96 93 Oximetry Oxygen Devices in Use Now: None Appearance: Elderly white male, laying in bed, appearing comfortable and in NAD Eyes: No Scleral Icterus, - - PERRL Ears/Nose/Mouth/Throat: Mucous Membranes Moist Neck: NL Appearance and Movements; NL JVP, Trachea Midline Respiratory: Symmetrical Chest Expansion and Respiratory Effort, - - faint crackles in bilateral lung bases Cardiovascular: NL Sounds; No Murmurs; No JVD, RRR Abdominal: - - abd soft, nontender, nondistended Extremities: No Edema, No Clubbing, Cyanosis Skin: No Rash or Ulcers Neurological: Alert and Oriented x 3 Result Diagrams: 08/27/19 12:55 08/28/19 06:38 Microbiology and Other Data: Microbiology 08/20/19 23:10 Urine Culture - Final Urine 08/20/19 22:04 Aerobic Blood Culture - Preliminary Blood Venous No Growth Day 1 Anaerobic Blood Culture - Preliminary No Growth Day 1 08/20/19 22:10 Aerobic Blood Culture - Preliminary Blood Venous No Growth Day 1 Anaerobic Blood Culture - Preliminary No Growth Day 1 Assess/Plan/Problems-Billing Assessment: patient is a 79 yo male with a PMH of type 2 diabetes, HTN, HLD, BPH, 4.3 cm transthoracic ascending aortic aneurysm, and CKD who presented with AMS. Per EMS , he had a seizure en route to the hospital and another one in the ER thought to be secondary to hyperosmolar nonketotic state and acute hypercapinic respiratory failure requiring BIPAP, also found to have new afib/flutter, elevated troponin -> found to have abnormal echo and nuclear stress test. Cardiology felt medical management and follow up as an outpatient. Concerned about noncompliance and possible underlying cognitive decline which has been confirmed by friends & family. Patient back to baseline. Was ready for discharge and pending subacute - when 4/17 he started spiking fevers, increased confusion -> sepsis work up revealed positive blood cultures growing staph aureus. - Patient Problems (1) Bacteremia Current Visit: Yes Status: Acute Code(s): R78.81 - BACTEREMIA SNOMED Code( s): 1624384 Comment: - unclear source, concern for endocarditis given echocardiogram findings - Per echo 08/21/19 there was a 0.6 cm x 0.9 cm mobile calcific echodensity at the posterior chordal structure likely representing sclerosis asscoiated with MAC, however not able to exclude vegetation or cardiac mass. - Initial blood cultures were negative. However, on 08/25 starting spiking fevers and new blood cultures sent - now growing staph aureus - repeat blood cultures staph simulans, unfortunately in 2/2 bottles - continue cefazolin - repeat cultures from 08/27 without growth x 1 day - has been afebrile >48 hours, WBCs normalized - ordering PICC placement as patient will need 6 weeks IV abx per ID, appreciate consult (2) Abnormal echocardiogram Current Visit: Yes Status: Acute Code(s): R93.1 - ABNORMAL FINDINGS ON DX IMAGING OF HEART AND COR CIRC SNOMED Code(s): 548907531 Comment: - please see cardiolgy note for full details - echo showed possible vegetation on valve as previously discussed (3) Hyperosmolar non-ketotic state due to type 2 diabetes mellitus Current Visit: Yes Status: Acute Code(s): E11.00 - TYPE 2 DIAB W HYPROSM W/ O NONKET HYPRGLY-HYPROS COMA ([facility]) SNOMED Code(s): 012872694 Comment: -admitted 08/21/19 with glucose >700 -HHS has since resolved -appears he is noncompliant with po medications but concern for acute infection with abnormal echo findings -HgbA1C 10.6 indicates poor control -Started insulin therapy during this hospitalization with good BGs, continue lantus 15U and lispro SS (4) Seizures Current Visit: Yes Status: Acute Code(s): R56.9 - UNSPECIFIED CONVULSIONS SNOMED Code(s): 67713446 Comment: -Seizures witnessed via EMS as well as seizure in ED -likely provoked by metabolic derrangement with HHS -Has not had any further seizures inpatient -CTA of the head was negative for acute findings -Alcohol level 11 on admission, pt denies alcohol intake. Was on WAM protocol, no signs of withdrawl, possibly contributing factor to seizure onset -started on Keppra per neurology, will titrate as schedule below -Keppra 500mg PO BID X14 days, then decrease by 250mg daily until off (250/500 on 09/03, 250/250 09/04. 250 on 09/05 then DC - per ); started PO dosing on 08/22 -Continue precautions -no prior hx of seizures (5) Paroxysmal atrial flutter Current Visit: Yes Status: Acute Code(s): I48.92 - UNSPECIFIED ATRIAL FLUTTER SNOMED Code(s): 467693397 Comment: -started on eliquis during this hospitalization -has been sinus overall on tele -appreciate previous cardiology consult (6) HTN (hypertension) Current Visit: Yes Status: Acute Code(s): I10 - ESSENTIAL (PRIMARY) HYPERTENSION SNOMED Code(s): 33776823 Comment: -continue lisinopril and metoprolol (7) BPH (benign prostatic hyperplasia) Current Visit: Yes Status: Chronic Code(s): N40.0 - BENIGN PROSTATIC HYPERPLASIA WITHOUT LOWER URINRY TRACT SYMP SNOMED Code(s): 478707041 Comment: -continue finasteride (8) Chronic kidney disease Current Visit: Yes Status: Chronic Code(s): N18.9 - CHRONIC KIDNEY DISEASE, UNSPECIFIED SNOMED Code(s): 310917741 Comment: -Stable. Do not know baseline creatinine. (9) DVT prophylaxis Current Visit: Yes Status: Acute Code(s): Z29.9 - ENCOUNTER FOR PROPHYLACTIC MEASURES, UNSPECIFIED SNOMED Code(s): 972399364 Comment: -Eliquis (10) Full code status Current Visit: Yes Status: Acute Code(s): Z78.9 - OTHER SPECIFIED HEALTH STATUS SNOMED Code(s): 964570399 Status and Disposition: inpatient. Will need subacute rehab. Has bed ready for him at [facility]. Awaiting PICC placement.
--- NOTE | 2019-08-30 11:03 | PN ---
Progress Note - Progress Note Date of Service: 08/30/19 SOAP: Subjective: CC: Bacteremia HPI: Mr. Stevenson is a 79 yo male with PMH significant for HTN, DM2, HLD, BPH, CKD, and transthoracic aneurysm; who presented to the hospital with altered mental status and seizures. Denies fever, chills, nausea, vomiting, diarrhea, joint/muscle pain, or urinary symptoms. He does feel that the right hand may be swollen compared to normal. Denies cough or shortness of breath. Objective: Vital Signs - 8 hr 08/30/19 08/30/19 08/30/19 03:15 07:19 07:55 Temperature 98.7 F 97.5 F Pulse Rate 68 49 Respiratory 18 20 18 Rate Blood Pressure 124/73 110/49 (mmHg) O2 Sat by Pulse 96 93 Oximetry Physical Exam: General: NAD, laying in bed Neurological: Alert and Oriented HEENT: Moist MM Cardiovascular: Heart rate regular Respiratory: Lung sounds clear Abdominal: Bowel sounds present MSK: MODI, no tenderness with palpation of joints or back. Mild edema to the right hand MCP joints Skin: No rash. Slight erythema to the MCP joints on the right hand Laboratory Tests 08/27/19 08/28/19 12:55 06:38 WBC 9.2 Hgb 13.0 L Hct 38 L Plt Count 177 Sodium 134 L Potassium 3.7 Chloride 104 Carbon Dioxide 23 BUN 29 H Creatinine 1.55 H Glucose 81 C-Reactive Protein 91.31 H Microbiology 08/27/19 20:07 Blood Culture - Final Blood Venous Staphylococcus Simulans 08/27/19 18:26 Aerobic Blood Culture - Final Blood Venous Staphylococcus Simulans 08/28/19 22:10 Aerobic Blood Culture - Preliminary Blood Venous No Growth Day 1 Anaerobic Blood Culture - Preliminary No Growth Day 1 08/28/19 22:05 Aerobic Blood Culture - Preliminary Blood Venous No Growth Day 1 Anaerobic Blood Culture - Preliminary No Growth Day 1 08/26/19 16:42 Aerobic Blood Culture - Final Blood Venous Staphylococcus Aureus Anaerobic Blood Culture - Final Staphylococcus Aureus Blood MRSA/MSSA (PCR) - Final Mrsa Negative S.aureus Positive 08/26/19 16:42 Aerobic Blood Culture - Final Blood Venous Staphylococcus Aureus Anaerobic Blood Culture - Final Staphylococcus Aureus 08/25/19 05:35 Urine Culture - Final Urine Klebsiella Variicola Escherichia Coli 08/20/19 22:04 Aerobic Blood Culture - Final Blood Venous No Growth Day 5 Anaerobic Blood Culture - Final No Growth Day 5 08/20/19 22:10 Aerobic Blood Culture - Final Blood Venous No Growth Day 5 Anaerobic Blood Culture - Final No Growth Day 5 08/20/19 23:10 Urine Culture - Final Urine Assessment: 1. Bacteremia, staph aureus. Initial blood cultures with no growth on 08/20/19. Pt with a fever of 101 on 08/26/19 and repeat blood cultures obtained. Blood cultures from 08/26/19 with 4/4 bottles positive for staph aureus. 3rd set of blood cultures with 2/2 bottles positive for staph aureus on 08/27/19. TTE around the time of admission with "MV appearing moderately calcified with leaflets mildly thickened, a mobile calcific echodensity at the posterior condral structures measuring 0.6 x 0.9 cm, trace to mild regurgitation, AV with trileaflet and leaflets mildly thickened, cusp separation at the lower limits of normal, trace regurgitation, TV with mild regurgitation. 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 Leukocytosis has resolved and afebrile. 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 No stigmata of infective endocarditis seen. No prosthetic material present. 2. DM2. Plan: Continue cefazolin 2 gm IV Q8H, day . Will need to have a PICC line placed. 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 Weekly labs while on IV ABX: CBC, CMP, and CRP. Followup with ID outpatient in 2-3 week. He will need to have a repeat TTE near the end of his ABX. 25 minutes floor time: > 50 % spent with the patient discussing plans for an extended course of IV ABX.
[2019-08-30] MEDS: Atorvastatin* 80 MG TAB PO SCH (17:24)
[2019-08-30] MEDS: Insulin GLARGINE(*) 1 UNITS UNIT SUBCUT SCH (21:20)
[2019-08-31] MEDS: ceFAZolin* 2 GM* Q8H (Duplex) IVPB SCH ×2 (00:42→08:41)
[2019-08-31] MEDS: Insulin LISPRO* 1 UNITS UNIT SUBCUT SCH ×2 (08:24→13:06)
[2019-08-31] MEDS: Finasteride TAB* 5 MG PO SCH (08:41)
[2019-08-31] MEDS: Metoprolol Succinate XL TAB* 25 MG PO SCH (08:41)
[2019-08-31] MEDS: Multivitamins/Minerals TAB PO SCH (08:41)
[2019-08-31] MEDS: Lisinopril TAB* 5 MG PO SCH (08:41)
[2019-08-31] MEDS: Folic Acid TAB* 1 MG PO SCH (08:41)
[2019-08-31] MEDS: levETIRAcetam TAB* 500 MG PO SCH (08:41)
[2019-08-31] MEDS: Apixaban* 5 MG TAB PO SCH (08:41)
[2019-08-31] MEDS: Thiamine TAB* 100 MG TAB PO SCH (08:41)
[2019-08-31] MEDS: Aspirin 81 mg CHEW TAB* 81 MG TAB.CHEW PO SCH (08:41)
[2019-08-31 14:56] VITALS: BP 126/61
--- NOTE | 2019-08-31 15:45 | DS ---
CC: Maribel George NP; Dr. Aziza Peterson; Dr. Melvin Bowling; Dr. Camilo Bernstein* DATE OF ADMISSION: 08/21/2019. DATE OF DISCHARGE: 08/31/2019. PRIMARY CARE PHYSICIAN: Maribel George NP, [facility]. OTHER PROVIDERS: Dr. Aziza Peterson, Dr. Melvin Bowling, Dr. Camilo Bernstein. ATTENDING PHYSICIAN: Dr. Samantha Viramontes* (dictated by CATIE Montgomery). PRIMARY DIAGNOSES: 1. Staphylococcus bacteremia. 2. Suspected endocarditis. 3. Hyperosmolar hyperglycemic state. 4. Seizure disorder. 5. Paroxysmal atrial fibrillation, on anticoagulation. SECONDARY DIAGNOSES: 1. Diabetes mellitus type 2. 2. Hypertension. 3. Hyperlipidemia. 4. BPH. STUDIES WHILE IN THE HOSPITAL: 1. CT brain: Impression: Right middle cerebral artery appears hyperdense. 2. Chest x-ray: Impression: Atelectasis. Low lung volume. No evidence for pneumonia. No acute cardiac process evident. 3. CTA head/neck: Impression: No significant stenosis or occlusion. No acute abnormality. 4. Transthoracic echocardiogram: LV cavity size below normal. Wall thickness mildly increased. Systolic function normal. Estimated EF 55 to 60 percent. RV cavity size mildly to moderately dilated. Systolic function is low normal. MV annulus appears moderately calcified. The leaflets are mildly thickened. There is a mobile calcified echodensity at the posterior chordal structure measuring 0.6 x 0.9 cm. Trace mild regurgitation. AV trileaflet mildly thickened. Cusp separation at lower limits of normal. Trace AR. Trace to mild TR. Pulmonary artery systolic pressure with a normal range. 5. Nuclear cardiac stress test: Impression: Fixed defect of the inferior wall which may reflect soft tissue attenuation artifact versus previous artifact. Decreased EF. Assessment: Intermediate risk. 6. Chest x-ray: Impression: Likely bibasilar infiltrates consistent with pneumonia, progressive on the right base. 7. Electroencephalogram: Clinical impression: Abnormal EEG due to generalized slowing and disorganization of background rhythms. There are no epileptiform features to this recording. CONSULTATIONS WHILE IN THE HOSPITAL: 1. Neurology: Impression is that of new onset seizures in a patient with severe hyperglycemia. The seizures may be due to the metabolic derangements alone, but could be due to another factor as well. Recommend maintenance Keppra and put an order for 1,000 mg q.12 hours IV. Will arrange for an EEG. If he continues to not become more responsive, especially if he develops a fever , then I would recommend a lumbar puncture. I will put in an order to check an ammonia level as well. We will continue to follow along. 2. Cardiology for troponinemia without chest pain. No focal wall motion abnormalities on echo. LVEF is preserved. Recommend risk stratification with Lexiscan. Newly found PAF. CHADS-VASc 4, HAS-BLED 2. At this time, recommend oral anticoagulation, beta hannah. 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 DISCHARGE MEDICATIONS: Home medications: 1. Aspirin 81 mg p.o. daily. 2. Atorvastatin 80 mg p.o. daily. 3. Finasteride 5 mg p.o. daily. New home medications: 1. Acetaminophen 650 mg p.o. q.6 hours prn. 2. Apixaban 5 mg p.o. b.i.d. 3. Cefazolin 2 gm IV piggyback q.8 hours. 4. Folic acid 1 mg p.o. daily. 5. Insulin Glargine 15 units subcu at bedtime. 6. Lispro sliding scale. 7. Levetiracetam 500 mg p.o. b.i.d. 8. Lisinopril 2.5 mg p.o. daily. 9. Metoprolol Tartrate 25 mg p.o. daily. 10. Multivitamin/minerals one tab p.o. daily. 11. Thiamine 100 mg p.o. daily. HISTORY OF PRESENT ILLNESS/HOSPITAL COURSE: Mr. Stevenson is a 79-year-old male with a past medical history of diabetes, hypertension, and hyperlipidemia who presented to the ER with altered mental status and seizure disorder. 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 The patient arrived at the ER, received Ativan and was admitted to the hospital. CT of the brain shows questionable right MCA hyperdensity. CTA of the head and neck was unremarkable and did not reproduce right MCA concerns. The patient was loaded on Keppra and a neurology consult was ordered. Neurology recommended EEG and continued Keppra. EEG was unremarkable for epileptiform changes. The patient's seizure activity was suspected to be due to alcohol versus acute metabolic encephalopathy. In the end, it was suspected that this was related to metabolic encephalopathy. His Keppra was titrated down. He will continue Keppra for 14 days and wean off this medication. If seizures recur, he will resume Keppra. The patient did have hypercapnic respiratory failure at admission at admission which warranted placement on BiPAP. He improved with BiPAP. At admission, he was in hyperosmolar hyperglycemic state with unclear etiology. He does have a known history of diabetes, but it was unable to be determined how compliant he was with his medication. He was admitted to the ICU and placed on an insulin drip. The patient was placed on an insulin drip and eventually weaned off. His medications were adjusted and he will be discharged on insulin Glargine 15 units subcu q.24 hours and Lispro sliding scale. His Glipizide has been discontinued. His blood glucose levels are well-controlled on this regimen. His hemoglobin A1c on 08/21/2019 is 10.6. His mental status improved significantly throughout his stay and on discharge he was within normal limits. During the patient's stay, he was noted to be in paroxysmal atrial fibrillation versus flutter. Cardiology was consulted and recommended NOAC and beta hannah which the patient started and will be discharged on. 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 He subsequently also developed fevers and bacteremia. Blood cultures grew staph aureus in two bottles, staph simulans in two bottles. Repeat cultures were negative. 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 He will have weekly lab, CBC, CMP, and CRP. He will follow-up with Infectious Disease in two to three weeks and have a repeat TTE near the end of his antibiotic treatment course. He has a PICC line in place and will be discharged to [facility] for rehab. Of note, the patient did have electrolyte abnormalities which remained stable once his electrolytes were repleted. He works with physical therapy while in the ER who recommended short-term rehab. At admission, he was noted to have a lactic acidosis which was suspected to be due to seizure and resolved. The patient's date of last fever was August 25 with a temperature of 101. During his stay he was started on antihypertensive medications. At discharge, the patient denies headache, dizziness, lightheadedness, vision changes, chest pain, shortness of breath, cough, fever, chills, abdominal pain, nausea, vomiting, diarrhea, constipation, myalgias, arthralgias. He states he is feeling well and is eager and agreeable to discharge to subacute rehab. PHYSICAL EXAMINATION: Vital signs: Temperature 98.3 temporal, heart rate 65, respiratory rate 16, oxygen saturation 96 percent on room air, blood pressure 137/74. HEENT: PERRL, EOMI, nonicteric sclerae. Hearing is grossly intact. Oral mucous membranes are moist, there are no lesions. Pharynx is clear. Tongue is at midline. Palate elevated symmetrically. Cardiovascular: Regular rate and rhythm with S1, S2 present. There are no murmurs, rubs, clicks, or gallops. There is no JVD. The patient has bilateral 1+ pedal edema. Pulmonary : Symmetrical chest expansion without use of accessory muscles. Clear to auscultation bilaterally without rhonchi, wheezes, or rales. Abdomen: Bowel sounds in all quadrants. The abdomen is soft and nontender to palpation. Musculoskeletal: Full range of motion without pain or deformities. Neuro: The patient is awake. He is alert and oriented times three. Cranial nerves II through XII are grossly intact. Muscle strength is 5/5 bilaterally in upper and lower extremities. 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 Extremities: Right arm PICC line in place. DISCHARGE PLAN: Mr. Stevenson will be discharged to [facility]. MEDICATIONS: 1. See changes as above. 2. Continue IV Cefazolin 2 gm q.8 hours for 42 days (today is day 4 of 42). 3. Please continue to wean of Keppra according to the following schedule: 250/ 500 on September 03, 250/250 on September 04, 250 on September 05, then completely discontinue. DIET: 1. ADA/diabetic. 2. Heart-healthy. ACTIVITY: As tolerated. EDUCATION: 1. Weekly CBC, CMP, CRP while on antibiotics. 2. Follow-up with Infectious Disease in two to three weeks. 3. Follow-up with Neurology if seizure or symptoms recur. 4. Follow-up with Cardiology as scheduled. 5. Repeat MAIA at end of the antibiotic course. 6. Return to the ER for any complaints. CONDITION ON DISCHARGE: Fair. This is a summarized report of a complex medical history and hospital stay. For further details, please see the entire medical record. TIME SPENT: Approximately 40 minutes were spent on this discharge, greater than half of that time was spent [id number] with the patient discussing discharge plans and instructions. CATIE HAHN [id number]/CPS #: [id number] ALEKSANDAR
== END 2019-08-31 15:35 | disposition swing bed (61) | DRG 100 ==
LOC: ED 21:39 → ICU 08-21 00:21 → MEDTELE 08-22 10:42
PROVIDERS: ADMIT Internal Medicine; ATTEND Internal Medicine
PROC: 4A00X4Z Measurement of Central Nervous Electrical Activity, External Approach (ICD-10-PCS; principal; 2019-08-21)
PROC: 5A09357 Assistance with Respiratory Ventilation, Less than 24 Consecutive Hours, Continuous Positive Airway Pressure (ICD-10-PCS; 2019-08-21)
PROC: 02HV33Z Insertion of Infusion Device into Superior Vena Cava, Percutaneous Approach (ICD-10-PCS; 2019-08-31)
DX: G40.909 Epilepsy, unspecified, not intractable, without status epilepticus (principal); E11.00 Type 2 diabetes mellitus with hyperosmolarity without nonketotic hyperglycemic-hyperosmolar coma (NKHHC); J96.02 Acute respiratory failure with hypercapnia; R40.2342 Coma scale, best motor response, flexion withdrawal, at arrival to emergency department; R40.2212 Coma scale, best verbal response, none, at arrival to emergency department; E87.2 Acidosis; I48.92 Unspecified atrial flutter; N17.9 Acute kidney failure, unspecified; R78.81 Bacteremia; I38 Endocarditis, valve unspecified; E11.65 Type 2 diabetes mellitus with hyperglycemia; E78.5 Hyperlipidemia, unspecified; N40.0 Benign prostatic hyperplasia without lower urinary tract symptoms; I71.2 Thoracic aortic aneurysm, without rupture; E11.22 Type 2 diabetes mellitus with diabetic chronic kidney disease; I12.9 Hypertensive chronic kidney disease with stage 1 through stage 4 chronic kidney disease, or unspecified chronic kidney disease; N18.9 Chronic kidney disease, unspecified; R79.89 Other specified abnormal findings of blood chemistry; I48.0 Paroxysmal atrial fibrillation; I08.3 Combined rheumatic disorders of mitral, aortic and tricuspid valves; E87.6 Hypokalemia; E83.42 Hypomagnesemia; R40.2142 Coma scale, eyes open, spontaneous, at arrival to emergency department; R93.1 Abnormal findings on diagnostic imaging of heart and coronary circulation; I95.9 Hypotension, unspecified; Z79.82 Long term (current) use of aspirin; Z79.899 Other long term (current) drug therapy; Z87.891 Personal history of nicotine dependence
CPT/HCPCS: 36415; 36600; 70450; 70496; 70498; 71045; 78452; 80048; 80053; 80061; 80307; 80320; 81003; 81015; 82140; 82550; 82803; 83036; 83605; 83735; 84443; 84484; 85025; 85060; 85610; 85652; 85730; 86140; 87040; 87077; 87086; 87150; 87186; 87205; 93005; 93017; 93306; 94660; 95816; 96361; 96374; 99285; A9270-GY; A9502; C1751; G0480; J0280; J0330; J0690; J1644; J1953; J2060; J2543; J2785; J3360; J3411; J3475; J3480; Q9967

== ENCOUNTER 2019-10-13 15:31 | Inpatient (IN) ==
[2019-10-13] MEDS ORDERED: NS 0.9% 1000 ml BAG 1,000 ML IV ONE (16:06)
[2019-10-13 16:34] LABS: ABS Basophils 0.1 10^3/ul (0-0.2); ABS Monocytes 0.6 10^3/ul (0-0.8); Eosinophil % 0.2 %; Hematocrit 37 % (42-52); Lymphocyte % 12.6 %; Mean Corpuscular HGB Conc 33 g/dL (31-36); Mean Corpuscular Hemoglobin 29 pg (27-31); Mean Corpuscular Volume 89 fL (80-94); Mean Platelet Volume 8.7 fL (7.4-10.4); Platelet Count 240 10^3/uL (150-450); Red Cell Distribution Width 16 % (10-15); White Blood Count 7.9 10^3/uL (3.5-10.8)
[2019-10-13 16:55] LABS: Troponin I 0.05 ng/mL (<0.03)
[2019-10-13 17:02] LABS: ALT 3 U/L (7-52); AST 14 U/L (13-39); Albumin 3.5 g/dL (3.2-5.2); Albumin/Globulin Ratio 1.2 (1-3); Alkaline Phosphatase 89 U/L (34-104); Anion Gap 10 mmol/L (2-11); BUN/Creatinine Ratio 21.4 (8-20); Blood Urea Nitrogen 31 mg/dL (6-24); CO2 Carbon Dioxide 30 mmol/L (22-32); Calcium 8.9 mg/dL (8.6-10.3); Chloride 103 mmol/L (101-111); EGFR African American 56.8 (>60); EGFR Non-African American 46.9 (>60); Globulin 2.9 g/dL (2-4); Glucose 158 mg/dL (70-100); Magnesium 1.6 mg/dL (1.9-2.7); Potassium 3.6 mmol/L (3.5-5.0); Sodium 143 mmol/L (135-145); Total Protein 6.4 g/dL (6.4-8.9)
[2019-10-13 17:20] LABS: TSH (Thyroid Stimulating Horm) 0.75 mcIU/mL (0.34-5.60)
[2019-10-13] MEDS ORDERED: Magnesium Sulfate IV 1GM/100ML 1 GM/100 ML BAG IV ONE ×2 (17:38→22:25)
[2019-10-13 19:03] LABS: Urine Appearance Cloudy; Urine Bilirubin Negative (Negative); Urine Blood 3+ (Negative); Urine Color Yellow; Urine Glucose Negative (Negative); Urine Ketones Trace (Negative); Urine Nitrite Negative (Negative); Urine Protein 3+(>=500 mg/dL) (Negative); Urine Urobilinogen Negative (Negative)
[2019-10-13 19:09] LABS: Urine Bacteria Absent (Absent); Urine Red Blood Cell 3+(>10/hpf) (Absent); Urine Squamous Epithelial Cell Present (Absent); Urine White Blood Cell Trace(0-5/hpf) (Absent)
[2019-10-13 19:49] LABS: C Reactive Protein 1.37 mg/L (<8.01)
[2019-10-13 20:34] LABS: Troponin I 0.06 ng/mL (<0.03)
[2019-10-13 20:41] LABS: Erythrocyte Sed Rate 20 mm/Hr (0-19)
[2019-10-13] MEDS ORDERED: Furosemide 40 mg/4 ml IV VIAL IV ONE (20:48)
[2019-10-13 21:48] LABS: Troponin I 0.05 ng/mL (<0.03)
[2019-10-13] MEDS ORDERED: Dextrose 50% Syringe 50 ml 25 GM/50 ML SYRINGE IV PUSH PRN (22:54)
[2019-10-13] MEDS ORDERED: Ondansetron 4 mg VIAL 2 MG/ML 2 ml VIAL IV PRN (22:56)
[2019-10-13 23:38] LABS: Alcohol, S < 10 mg/dL (<10)
[2019-10-14 07:31] LABS: Calcium 8.5 mg/dL (8.6-10.3); EGFR African American 58.2 (>60); EGFR Non-African American 48.1 (>60); Magnesium 1.8 mg/dL (1.9-2.7); Potassium 3.1 mmol/L (3.5-5.0)
[2019-10-14] MEDS: Insulin LISPRO 100 units/ml(*) SUBCUT SCH ×3 (09:01→16:54)
[2019-10-14] MEDS: Vitamin THERAPEUTIC TAB PO SCH (09:03)
[2019-10-14] MEDS: Nystatin SUSPENSION 100,000 UNITS/ML UDC PO SCH ×4 (09:04→20:45)
[2019-10-14] MEDS: Furosemide 40 mg/4 ml IV VIAL IV SCH (09:04)
[2019-10-14] MEDS ORDERED: Potassium Chlor 20 meq TAB.ER PO ONE (10:56)
[2019-10-14] MEDS ORDERED: Perflutren Lipid Microsphere 3 ML VIAL ONE (11:37)
[2019-10-14] MEDS: KCL 20 MEQ/100 ML IVPREMIX 20 MEQ/100 ML BAG IV SCH ×3 (12:01→16:53)
[2019-10-14 12:59] LABS: Folate 12.09 ng/mL (>3.99)
[2019-10-14 20:41] LABS: BUN/Creatinine Ratio 20.9 (8-20); Calcium 8.3 mg/dL (8.6-10.3); EGFR African American 51.4 (>60); EGFR Non-African American 42.5 (>60); Potassium 4.3 mmol/L (3.5-5.0)
[2019-10-14] MEDS ORDERED: Insulin GLARGINE 100 un/ml (*) 10 ml VIAL SUBCUT SCH (21:00)
[2019-10-15] MEDS: Insulin LISPRO 100 units/ml(*) SUBCUT SCH ×3 (08:58→18:05)
[2019-10-15] MEDS: Vitamin THERAPEUTIC TAB PO SCH (11:09)
[2019-10-15] MEDS: Furosemide 40 mg/4 ml IV VIAL IV SCH (11:10)
[2019-10-15] MEDS: Nystatin SUSPENSION 100,000 UNITS/ML UDC PO SCH ×4 (11:49→19:49)
[2019-10-16] MEDS: Vitamin THERAPEUTIC TAB PO SCH (08:44)
[2019-10-16] MEDS: Insulin LISPRO 100 units/ml(*) SUBCUT SCH ×3 (08:44→17:10)
[2019-10-16] MEDS: Nystatin SUSPENSION 100,000 UNITS/ML UDC PO SCH ×4 (08:45→19:39)
[2019-10-17] MEDS: Nystatin SUSPENSION 100,000 UNITS/ML UDC PO SCH ×2 (07:40→12:17)
[2019-10-17] MEDS: Vitamin THERAPEUTIC TAB PO SCH (07:41)
[2019-10-17] MEDS: Insulin LISPRO 100 units/ml(*) SUBCUT SCH ×2 (08:36→12:17)
[2019-10-17 12:30] VITALS: BP 130/68
== END 2019-10-17 15:25 | disposition home health service (06) | DRG 948 ==
LOC: MED 15:31 → ED 15:31 → MED 10-14 00:11
PROVIDERS: ADMIT Nurse Practitioner Adult Health; ATTEND Hospitalist

== ENCOUNTER 2019-10-27 15:53 | Inpatient (IN) ==
[2019-10-27 16:55] LABS: ABS Basophils 0.1 10^3/ul (0-0.2); ABS Eosinophils 0.1 10^3/ul (0-0.6); ABS Lymphocytes 1.3 10^3/ul (1.0-4.8); ABS Monocytes 0.5 10^3/ul (0-0.8); Eosinophil % 1.7 %; Hematocrit 38 % (42-52); Hemoglobin 12.8 g/dL (14.0-18.0); Lymphocyte % 22.2 %; Mean Corpuscular HGB Conc 34 g/dL (31-36); Mean Corpuscular Hemoglobin 30 pg (27-31); Mean Corpuscular Volume 88 fL (80-94); Mean Platelet Volume 8.4 fL (7.4-10.4); Platelet Count 189 10^3/uL (150-450); Red Blood Count 4.24 10^6 /uL (4.18-5.48); Red Cell Distribution Width 16 % (10-15); White Blood Count 5.7 10^3/uL (3.5-10.8)
[2019-10-27 16:56] LABS: Urine Appearance Cloudy; Urine Bilirubin Negative (Negative); Urine Blood 3+ (Negative); Urine Color Yellow; Urine Glucose 2+(150 mg/dL) (Negative); Urine Ketones Negative (Negative); Urine Nitrite Negative (Negative); Urine Protein 2+(100 mg/dL) (Negative); Urine Specific Gravity 1.013 (1.010-1.030); Urine Urobilinogen Negative (Negative)
[2019-10-27 16:59] LABS: Urine Bacteria Absent (Absent); Urine Red Blood Cell 3+(>10/hpf) (Absent); Urine White Blood Cell Trace(0-5/hpf) (Absent)
[2019-10-27 17:09] LABS: Alcohol, S < 10 mg/dL (<10)
[2019-10-27 17:10] LABS: ALT 20 U/L (7-52); AST 20 U/L (13-39); Albumin 3.5 g/dL (3.2-5.2); Albumin/Globulin Ratio 1.2 (1-3); Alkaline Phosphatase 84 U/L (34-104); Anion Gap 4 mmol/L (2-11); BUN/Creatinine Ratio 18.5 (8-20); Blood Urea Nitrogen 34 mg/dL (6-24); CO2 Carbon Dioxide 34 mmol/L (22-32); Calcium 8.9 mg/dL (8.6-10.3); Chloride 97 mmol/L (101-111); EGFR African American 43.2 (>60); EGFR Non-African American 35.7 (>60); Globulin 2.9 g/dL (2-4); Glucose 346 mg/dL (70-100); Sodium 135 mmol/L (135-145); Total Protein 6.4 g/dL (6.4-8.9)
[2019-10-27 17:15] LABS: Troponin I 0.03 ng/mL (<0.03)
[2019-10-27 17:58] LABS: C Reactive Protein < 1.00 mg/L (<8.01)
[2019-10-27] MEDS ORDERED: Ondansetron 4 mg VIAL 2 MG/ML 2 ml VIAL IV PRN (18:17)
[2019-10-27] MEDS ORDERED: Dextrose 50% Syringe 50 ml 25 GM/50 ML SYRINGE IV PUSH PRN ×2 (18:26→18:27)
[2019-10-27] MEDS ORDERED: Insulin LISPRO 100 units/ml(*) SUBCUT ONE (18:26)
[2019-10-27] MEDS ORDERED: NS 0.9% 1000 ml BAG 1,000 ML IV SCH (18:30)
[2019-10-27 20:02] LABS: Prolactin 11.3 ng/mL (1.0-20.0)
[2019-10-27 20:04] LABS: % Iron Saturation 27 % (15-55); Iron 64 ug/dL (50-212); Total Iron Binding Capacity 239 mcg/dL (250-450); Transferrin 171 mg/dL (203-362)
[2019-10-27] MEDS: Insulin LISPRO 100 units/ml(*) SUBCUT SCH (20:07)
[2019-10-27 20:15] LABS: Ferritin 165.1 ng/mL (24-336)
[2019-10-28 06:48] LABS: ABS Basophils 0.1 10^3/ul (0-0.2); ABS Eosinophils 0.1 10^3/ul (0-0.6); ABS Lymphocytes 1.6 10^3/ul (1.0-4.8); ABS Monocytes 0.6 10^3/ul (0-0.8); Eosinophil % 1.8 %; Hematocrit 35 % (42-52); Hemoglobin 11.6 g/dL (14.0-18.0); Lymphocyte % 23.7 %; Mean Corpuscular HGB Conc 33 g/dL (31-36); Mean Corpuscular Hemoglobin 29 pg (27-31); Mean Corpuscular Volume 88 fL (80-94); Mean Platelet Volume 8.5 fL (7.4-10.4); Platelet Count 179 10^3/uL (150-450); Red Blood Count 3.99 10^6 /uL (4.18-5.48); Red Cell Distribution Width 16 % (10-15); White Blood Count 6.6 10^3/uL (3.5-10.8)
[2019-10-28 07:09] LABS: Calcium 8.6 mg/dL (8.6-10.3); EGFR Non-African American 36.3 (>60); Magnesium 1.7 mg/dL (1.9-2.7); Potassium 4.1 mmol/L (3.5-5.0)
[2019-10-28] MEDS ORDERED: Magnesium Sulfate 2 gm BAG 2 GM/50 ML BAG IVPB ONE (08:01)
[2019-10-28] MEDS: Insulin LISPRO 100 units/ml(*) SUBCUT SCH ×4 (08:42→20:06)
[2019-10-28] MEDS: Multivitamins/Minerals TAB PO SCH (08:43)
[2019-10-29] MEDS: Insulin LISPRO 100 units/ml(*) SUBCUT SCH ×4 (07:50→19:45)
[2019-10-29] MEDS: Multivitamins/Minerals TAB PO SCH (08:42)
[2019-10-30] MEDS: Insulin LISPRO 100 units/ml(*) SUBCUT SCH ×4 (09:30→21:57)
[2019-10-30] MEDS: Multivitamins/Minerals TAB PO SCH (09:30)
[2019-10-31] MEDS: Multivitamins/Minerals TAB PO SCH (09:09)
[2019-10-31] MEDS: Insulin LISPRO 100 units/ml(*) SUBCUT SCH ×4 (09:09→20:20)
[2019-10-31] MEDS ORDERED: Ondansetron ODT 4 mg TAB 4 MG TAB PO PRN (12:13)
[2019-11-01] MEDS: Insulin LISPRO 100 units/ml(*) SUBCUT SCH ×4 (09:11→21:10)
[2019-11-01] MEDS: Multivitamins/Minerals TAB PO SCH (09:18)
[2019-11-02] MEDS: Multivitamins/Minerals TAB PO SCH (08:15)
[2019-11-02] MEDS: Insulin LISPRO 100 units/ml(*) SUBCUT SCH ×4 (08:36→21:01)
[2019-11-03] MEDS: Insulin LISPRO 100 units/ml(*) SUBCUT SCH ×4 (08:07→21:06)
[2019-11-03] MEDS: Multivitamins/Minerals TAB PO SCH (08:39)
[2019-11-04] MEDS: Insulin LISPRO 100 units/ml(*) SUBCUT SCH ×4 (08:03→21:32)
[2019-11-04] MEDS: Multivitamins/Minerals TAB PO SCH (08:33)
[2019-11-05] MEDS: Insulin LISPRO 100 units/ml(*) SUBCUT SCH ×4 (08:12→20:50)
[2019-11-05] MEDS: Multivitamins/Minerals TAB PO SCH (09:24)
[2019-11-06] MEDS: Insulin LISPRO 100 units/ml(*) SUBCUT SCH ×4 (08:06→21:33)
[2019-11-06] MEDS: Multivitamins/Minerals TAB PO SCH (09:16)
[2019-11-07] MEDS: Insulin LISPRO 100 units/ml(*) SUBCUT SCH ×4 (07:51→22:17)
[2019-11-07] MEDS: Multivitamins/Minerals TAB PO SCH (08:33)
[2019-11-08] MEDS: Insulin LISPRO 100 units/ml(*) SUBCUT SCH ×4 (07:29→21:03)
[2019-11-08] MEDS: Multivitamins/Minerals TAB PO SCH (08:36)
[2019-11-09] MEDS: Insulin LISPRO 100 units/ml(*) SUBCUT SCH ×4 (08:20→17:21)
[2019-11-09] MEDS: Multivitamins/Minerals TAB PO SCH (08:50)
[2019-11-10 06:23] LABS: CO2 Carbon Dioxide 23 mmol/L (22-32); Calcium 8.7 mg/dL (8.6-10.3); Chloride 103 mmol/L (101-111); Sodium 133 mmol/L (135-145)
[2019-11-10 06:26] LABS: Anion Gap 7 mmol/L (2-11)
[2019-11-10 06:29] LABS: BUN/Creatinine Ratio 32.1 (8-20); Blood Urea Nitrogen 67 mg/dL (6-24); EGFR African American 37.3 (>60); EGFR Non-African American 30.8 (>60); Glucose 146 mg/dL (70-100)
[2019-11-10] MEDS: Multivitamins/Minerals TAB PO SCH (09:45)
[2019-11-10] MEDS: Insulin LISPRO 100 units/ml(*) SUBCUT SCH ×3 (09:45→17:24)
[2019-11-10] MEDS ORDERED: NS 0.9% 250 ml 250 ML IV SCH (11:00)
[2019-11-10 14:35] LABS: BUN/Creatinine Ratio 30.1 (8-20); Calcium 9.1 mg/dL (8.6-10.3); EGFR African American 35.9 (>60); EGFR Non-African American 29.6 (>60); Magnesium 1.9 mg/dL (1.9-2.7)
[2019-11-10 14:38] LABS: Potassium 5.2 mmol/L (3.5-5.0)
[2019-11-11 06:54] LABS: BUN/Creatinine Ratio 30.8 (8-20); Calcium 8.9 mg/dL (8.6-10.3); EGFR African American 36.3 (>60); Potassium 4.8 mmol/L (3.5-5.0)
[2019-11-11] MEDS: Insulin LISPRO 100 units/ml(*) SUBCUT SCH ×2 (09:14→12:25)
[2019-11-11] MEDS: Multivitamins/Minerals TAB PO SCH (09:15)
[2019-11-12] MEDS: Multivitamins/Minerals TAB PO SCH (09:01)
[2019-11-13] MEDS: Multivitamins/Minerals TAB PO SCH (08:55)
[2019-11-14] MEDS: Multivitamins/Minerals TAB PO SCH (10:13)
[2019-11-15 08:55] VITALS: BP 106/57
[2019-11-15] MEDS: Multivitamins/Minerals TAB PO SCH (09:05)
== END 2019-11-15 11:25 | DRG 884 ==
LOC: ED 15:53 → MED 15:53 → OBSVTOIN 18:18
PROVIDERS: ADMIT Internal Medicine; ATTEND Internal Medicine

== ENCOUNTER 2020-12-10 06:38 | Inpatient (IN) ==
[2020-12-10 09:12] LABS: ABS Eosinophils 0.1 10^3/ul (0-0.6); ABS Lymphocytes 0.9 10^3/ul (1.0-4.8); ABS Monocytes 0.9 10^3/ul (0-0.8); ABS Neutrophils 9.1 10^3/ul (1.5-7.7); Eosinophil % 0.7 %; Hematocrit 33 % (42-52); Hemoglobin 11.3 g/dL (14.0-18.0); Lymphocyte % 7.9 %; Mean Corpuscular HGB Conc 34 g/dL (31-36); Mean Corpuscular Hemoglobin 33 pg (27-31); Mean Corpuscular Volume 96 fL (80-94); Mean Platelet Volume 8.6 fL (7.4-10.4); Platelet Count 189 10^3/uL (150-450); Red Blood Count 3.45 10^6 /uL (4.18-5.48); Red Cell Distribution Width 16 % (10-15); White Blood Count 10.9 10^3/uL (3.5-10.8)
[2020-12-10 09:31] LABS: Albumin 4.1 g/dL (3.2-5.2); Albumin/Globulin Ratio 1.1 (1-3); Calcium 9.2 mg/dL (8.6-10.3); EGFR African American 8.6 (>60); EGFR Non-African American 7.1 (>60); Globulin 3.6 g/dL (2-4); Potassium 4.5 mmol/L (3.5-5.0); Total Bilirubin 0.9 mg/dL (0.2-1.0); Total Protein 7.7 g/dL (6.4-8.9)
[2020-12-10] MEDS ORDERED: Dextrose 50% Syringe 50 ml 25 GM/50 ML SYRINGE IV PUSH PRN (11:14)
[2020-12-10] MEDS: oxyCODONE/Acetamin 5/325 mg TAB PO PRN (15:52)
[2020-12-10] MEDS: Insulin GLARGINE 100 un/ml 10 ml VIAL SUBCUT SCH (17:04)
[2020-12-10] MEDS: Senna TAB 8.6 mg TAB PO SCH (21:21)
[2020-12-11 06:43] LABS: ABS Basophils 0.1 10^3/ul (0-0.2); ABS Eosinophils 0.3 10^3/ul (0-0.6); ABS Lymphocytes 1.2 10^3/ul (1.0-4.8); ABS Monocytes 1.1 10^3/ul (0-0.8); ABS Neutrophils 7.3 10^3/ul (1.5-7.7); Eosinophil % 3.3 %; Hematocrit 30 % (42-52); Hemoglobin 10.5 g/dL (14.0-18.0); Lymphocyte % 12.1 %; Mean Corpuscular HGB Conc 35 g/dL (31-36); Mean Corpuscular Hemoglobin 33 pg (27-31); Mean Corpuscular Volume 95 fL (80-94); Platelet Count 181 10^3/uL (150-450); Red Blood Count 3.18 10^6 /uL (4.18-5.48); Red Cell Distribution Width 16 % (10-15); White Blood Count 10.1 10^3/uL (3.5-10.8)
[2020-12-11 06:49] LABS: INR 1.23 (0.86-1.15)
[2020-12-11 07:02] LABS: Calcium 8.3 mg/dL (8.6-10.3); EGFR African American 7.4 (>60); EGFR Non-African American 6.1 (>60); Potassium 5.1 mmol/L (3.5-5.0)
[2020-12-11] MEDS: Heparin 1,000 UNIT/ML 10 ml (10,000 UNITS) CATHLAB/DIALYSIS IV PRN ×3 (08:28→10:25)
[2020-12-11] MEDS ORDERED: ALOGLIPTIN 6.25 MG PO SCH (09:00)
[2020-12-11 10:10] LABS: Hepatitis B Surface Ab Immune (Immune)
[2020-12-11] MEDS: oxyCODONE/Acetamin 5/325 mg TAB PO PRN ×2 (13:03→21:44)
[2020-12-11] MEDS ORDERED: Perflutren Lipid Microsphere 3 ML VIAL ONE (13:57)
[2020-12-11] MEDS: B COMPLEX VITAMIN C FOLIC ACID 0.8 MG PO SCH (14:12)
[2020-12-11] MEDS: Senna TAB 8.6 mg TAB PO SCH (18:01)
[2020-12-11] MEDS: Insulin GLARGINE 100 un/ml 10 ml VIAL SUBCUT SCH (18:02)
[2020-12-12 00:19] LABS: Hepatitis B Surface Antigen Nonreactive (Nonreactive)
[2020-12-12] MEDS: oxyCODONE/Acetamin 5/325 mg TAB PO PRN (05:37)
[2020-12-12] MEDS ORDERED: Famotidine IV 10 MG/ML 2 ml VIAL (20 mg) IV ONE (06:00)
[2020-12-12] MEDS ORDERED: NS 0.45% 1000 ml BAG 1,000 ML IV SCH (06:00)
[2020-12-12 06:57] LABS: ABS Basophils 0.1 10^3/ul (0-0.2); ABS Eosinophils 0.2 10^3/ul (0-0.6); ABS Lymphocytes 1.5 10^3/ul (1.0-4.8); ABS Monocytes 1.3 10^3/ul (0-0.8); Eosinophil % 2.4 %; Hematocrit 30 % (42-52); Hemoglobin 10.3 g/dL (14.0-18.0); Lymphocyte % 16.4 %; Mean Corpuscular HGB Conc 34 g/dL (31-36); Mean Corpuscular Hemoglobin 33 pg (27-31); Mean Corpuscular Volume 97 fL (80-94); Mean Platelet Volume 8.6 fL (7.4-10.4); Platelet Count 175 10^3/uL (150-450); Red Blood Count 3.07 10^6 /uL (4.18-5.48); Red Cell Distribution Width 16 % (10-15)
[2020-12-12 07:12] LABS: Calcium 8.4 mg/dL (8.6-10.3); EGFR Non-African American 9.1 (>60); Potassium 4.8 mmol/L (3.5-5.0)
[2020-12-12] MEDS: B COMPLEX VITAMIN C FOLIC ACID 0.8 MG PO SCH (09:13)
[2020-12-12] MEDS ORDERED: Lidocaine 2% PF 5 ML VIAL ONE (13:36)
[2020-12-12] MEDS ORDERED: Cisatracurium 2 MG/ML MDV 5 ML ONE (13:36)
[2020-12-12] MEDS ORDERED: Propofol 10 MG/ML 20 ML BTL ONE (13:36)
[2020-12-12] MEDS ORDERED: Midazolam 2 mg/2 ml VIAL 1 mg/ml 2 ml VIAL (2 mg) ONE (13:36)
[2020-12-12] MEDS ORDERED: Dexamethasone IV 4 MG/ML VIAL 1 ml VIAL ONE (13:36)
[2020-12-12] MEDS ORDERED: fentaNYL 100 mcg/2 ml 50 MCG/ML VIAL ONE (13:36)
[2020-12-12] MEDS ORDERED: Ketamine HCL 50 mg/ml 10 ml VIAL (500 MG) ONE (13:36)
[2020-12-12] MEDS ORDERED: Ondansetron 4 mg VIAL 2 MG/ML 2 ml VIAL ONE (13:36)
[2020-12-12] MEDS ORDERED: EPHEDrine (Pressors) 50 MG/ML VIAL ONE (13:37)
[2020-12-12] MEDS ORDERED: Phenylephrine 40 mcg/mL 10mL (400mcg) SYRINGE ONE (14:20)
[2020-12-12] MEDS ORDERED: Bupivacaine 0.5% SDV PF 30ML VIAL ONE (14:26)
[2020-12-12] MEDS ORDERED: NS IVPB ONE (14:32)
[2020-12-12] MEDS ORDERED: CEFAZOLIN 2 GM/100 ML IVPB ONE (14:32)
[2020-12-12] MEDS ORDERED: Phenylephrine IV 10 MG/ML 1 ml VIAL ONE (16:15)
[2020-12-12] MEDS ORDERED: Neostigmine Methylsulfate 1 MG/ML 10 ML VIAL (1 mg/ml) ONE (16:42)
[2020-12-12] MEDS ORDERED: Glycopyrrolate IV 0.2 MG/ML 1 ML VIAL ONE (16:42)
[2020-12-12] MEDS ORDERED: fentaNYL 100 mcg/2 ml 50 MCG/ML VIAL IV PRN (17:43)
[2020-12-12] MEDS ORDERED: DiMENhydriNATE IV 50 mg/ml 1 ml VIAL IV PUSH PRN (17:43)
[2020-12-12] MEDS ORDERED: Naloxone 0.4 mg VIAL 0.4 mg/ml 1 ml VIAL IV PRN (17:43)
[2020-12-12] MEDS: Senna TAB 8.6 mg TAB PO SCH (19:08)
[2020-12-12] MEDS: Insulin GLARGINE 100 un/ml 10 ml VIAL SUBCUT SCH (19:09)
[2020-12-13] MEDS: ceFAZolin 1 GM X 3 DOSES POST-OP Q8H (AddVan) IVPB SCH ×2 (00:24→12:27)
[2020-12-13 07:15] LABS: ABS Lymphocytes 0.5 10^3/ul (1.0-4.8); ABS Monocytes 0.7 10^3/ul (0-0.8); ABS Neutrophils 8.7 10^3/ul (1.5-7.7); Hematocrit 28 % (42-52); Hemoglobin 9.5 g/dL (14.0-18.0); Lymphocyte % 5.5 %; Mean Corpuscular HGB Conc 33 g/dL (31-36); Mean Corpuscular Hemoglobin 33 pg (27-31); Mean Corpuscular Volume 98 fL (80-94); Mean Platelet Volume 8.7 fL (7.4-10.4); Platelet Count 181 10^3/uL (150-450); Red Blood Count 2.89 10^6 /uL (4.18-5.48); Red Cell Distribution Width 16 % (10-15); White Blood Count 9.9 10^3/uL (3.5-10.8)
[2020-12-13 07:16] LABS: Albumin 3.4 g/dL (3.2-5.2); Calcium 8.2 mg/dL (8.6-10.3); EGFR African American 8.8 (>60); EGFR Non-African American 7.3 (>60); Globulin 3.3 g/dL (2-4); Total Bilirubin 0.6 mg/dL (0.2-1.0); Total Protein 6.7 g/dL (6.4-8.9)
[2020-12-13 07:35] LABS: Potassium 6.4 mmol/L (3.5-5.0)
[2020-12-13] MEDS: B COMPLEX VITAMIN C FOLIC ACID 0.8 MG PO SCH (10:55)
[2020-12-13] MEDS: oxyCODONE/Acetamin 5/325 mg TAB PO PRN (12:31)
[2020-12-13] MEDS: Polyethylene Glycol 3350 17 GM PACKET PO PRN (12:33)
[2020-12-13] MEDS: Collagenase 250 units/gm OINT 1 tube TOPICAL SCH (12:35)
[2020-12-13] MEDS: Senna TAB 8.6 mg TAB PO SCH (17:27)
[2020-12-13] MEDS: Insulin GLARGINE 100 un/ml 10 ml VIAL SUBCUT SCH (17:28)
[2020-12-13] MEDS ORDERED: ceFAZolin 1 GM X 3 DOSES POST-OP Q8H (AddVan) IVPB SCH (20:00)
[2020-12-14 08:10] LABS: ABS Lymphocytes 0.6 10^3/ul (1.0-4.8); ABS Monocytes 1.2 10^3/ul (0-0.8); ABS Neutrophils 16.5 10^3/ul (1.5-7.7); Hematocrit 29 % (42-52); Hemoglobin 9.6 g/dL (14.0-18.0); Lymphocyte % 3.3 %; Mean Corpuscular HGB Conc 33 g/dL (31-36); Mean Corpuscular Hemoglobin 32 pg (27-31); Mean Corpuscular Volume 96 fL (80-94); Mean Platelet Volume 8.6 fL (7.4-10.4); Platelet Count 286 10^3/uL (150-450); Red Cell Distribution Width 16 % (10-15); White Blood Count 18.3 10^3/uL (3.5-10.8)
[2020-12-14 08:38] LABS: Albumin 3.3 g/dL (3.2-5.2); Albumin/Globulin Ratio 0.9 (1-3); Calcium 8.3 mg/dL (8.6-10.3); EGFR African American 12.2 (>60); EGFR Non-African American 10.1 (>60); Globulin 3.5 g/dL (2-4); Total Bilirubin 0.5 mg/dL (0.2-1.0); Total Protein 6.8 g/dL (6.4-8.9)
[2020-12-14 08:40] LABS: Potassium 5.2 mmol/L (3.5-5.0)
[2020-12-14] MEDS: Collagenase 250 units/gm OINT 1 tube TOPICAL SCH (16:02)
[2020-12-14] MEDS: B COMPLEX VITAMIN C FOLIC ACID 0.8 MG PO SCH (16:03)
[2020-12-14] MEDS ORDERED: Ondansetron 4 mg VIAL 2 MG/ML 2 ml VIAL IV PRN (16:08)
[2020-12-14] MEDS: Insulin GLARGINE 100 un/ml 10 ml VIAL SUBCUT SCH (19:56)
[2020-12-14] MEDS: Senna TAB 8.6 mg TAB PO SCH (19:57)
[2020-12-15 05:01] LABS: Hematocrit 27 % (42-52); Hemoglobin 8.6 g/dL (14.0-18.0); Mean Corpuscular HGB Conc 32 g/dL (31-36); Mean Corpuscular Hemoglobin 32 pg (27-31); Mean Corpuscular Volume 99 fL (80-94); Platelet Count 212 10^3/uL (150-450); Red Blood Count 2.71 10^6 /uL (4.18-5.48); Red Cell Distribution Width 16 % (10-15); White Blood Count 18.8 10^3/uL (3.5-10.8)
[2020-12-15 05:18] LABS: ALT < 3 U/L (7-52); AST 17 U/L (13-39); Albumin 2.9 g/dL (3.2-5.2); Alkaline Phosphatase 48 U/L (35-149); Anion Gap 10 mmol/L (2-11); Blood Urea Nitrogen 65 mg/dL (6-24); CO2 Carbon Dioxide 24 mmol/L (22-32); Calcium 8.1 mg/dL (8.6-10.3); Chloride 99 mmol/L (101-111); EGFR African American 14.8 (>60); EGFR Non-African American 12.2 (>60); Globulin 2.9 g/dL (2-4); Glucose 209 mg/dL (70-100); Magnesium 2.3 mg/dL (1.9-2.7); Potassium 4.9 mmol/L (3.5-5.0); Sodium 133 mmol/L (135-145); Total Protein 5.8 g/dL (6.4-8.9)
[2020-12-15 05:37] LABS: ABS Basophils 0.1 10^3/ul (0-0.2); ABS Lymphocytes 1.1 10^3/ul (1.0-4.8); ABS Monocytes 1.8 10^3/ul (0-0.8); ABS Neutrophils 15.8 10^3/ul (1.5-7.7); Lymphocyte % 5.8 %
[2020-12-15] MEDS: B COMPLEX VITAMIN C FOLIC ACID 0.8 MG PO SCH (08:20)
[2020-12-15] MEDS: Polyethylene Glycol 3350 17 GM PACKET PO PRN (09:09)
[2020-12-15] MEDS: Collagenase 250 units/gm OINT 1 tube TOPICAL SCH (09:12)
[2020-12-15] MEDS: Senna TAB 8.6 mg TAB PO SCH (17:55)
[2020-12-15] MEDS: Insulin GLARGINE 100 un/ml 10 ml VIAL SUBCUT SCH (17:56)
[2020-12-16 06:13] LABS: Hematocrit 25 % (42-52); Hemoglobin 7.8 g/dL (14.0-18.0); Mean Corpuscular HGB Conc 32 g/dL (31-36); Mean Corpuscular Hemoglobin 31 pg (27-31); Mean Corpuscular Volume 99 fL (80-94); Mean Platelet Volume 7.8 fL (7.4-10.4); Platelet Count 221 10^3/uL (150-450); Red Blood Count 2.49 10^6 /uL (4.18-5.48); Red Cell Distribution Width 16 % (10-15)
[2020-12-16 06:28] LABS: Calcium 7.9 mg/dL (8.6-10.3); Magnesium 2.5 mg/dL (1.9-2.7); Potassium 4.8 mmol/L (3.5-5.0)
[2020-12-16 06:34] LABS: EGFR African American 10.2 (>60); EGFR Non-African American 8.5 (>60)
[2020-12-16 06:36] LABS: Anisocytosis 1+; Macrocytosis 1+; Polychromasia 1+
[2020-12-16 06:37] LABS: ABS Basophils 0.1 10^3/ul (0-0.2); ABS Eosinophils 0.1 10^3/ul (0-0.6); ABS Lymphocytes 1.3 10^3/ul (1.0-4.8); ABS Monocytes 1.4 10^3/ul (0-0.8); ABS Neutrophils 12.1 10^3/ul (1.5-7.7); Eosinophil % 0.6 %; Lymphocyte % 8.9 %
[2020-12-16] MEDS ORDERED: Magnesium Hydroxide LIQ 30 ML UDC PO PRN (07:38)
[2020-12-16] MEDS: B COMPLEX VITAMIN C FOLIC ACID 0.8 MG PO SCH (08:53)
[2020-12-16] MEDS: Polyethylene Glycol 3350 17 GM PACKET PO PRN (09:00)
[2020-12-16] MEDS: Collagenase 250 units/gm OINT 1 tube TOPICAL SCH (09:04)
[2020-12-16] MEDS: Insulin GLARGINE 100 un/ml 10 ml VIAL SUBCUT SCH (17:42)
[2020-12-16] MEDS: Senna TAB 8.6 mg TAB PO SCH (17:43)
[2020-12-17 07:07] LABS: EGFR African American 8.6 (>60); EGFR Non-African American 7.1 (>60); Magnesium 2.5 mg/dL (1.9-2.7)
[2020-12-17 07:31] LABS: Hematocrit 28 % (42-52); Mean Corpuscular HGB Conc 33 g/dL (31-36); Mean Corpuscular Hemoglobin 32 pg (27-31); Mean Corpuscular Volume 97 fL (80-94); Mean Platelet Volume 7.7 fL (7.4-10.4); Platelet Count 233 10^3/uL (150-450); Red Blood Count 2.84 10^6 /uL (4.18-5.48); Red Cell Distribution Width 16 % (10-15)
[2020-12-17 07:49] LABS: Potassium 5.2 mmol/L (3.5-5.0)
[2020-12-17] MEDS: Collagenase 250 units/gm OINT 1 tube TOPICAL SCH (07:57)
[2020-12-17 08:23] LABS: ABS Basophils 0.1 10^3/ul (0-0.2); ABS Eosinophils 0.1 10^3/ul (0-0.6); ABS Lymphocytes 1.3 10^3/ul (1.0-4.8); ABS Neutrophils 12.6 10^3/ul (1.5-7.7); Eosinophil % 0.7 %; Lymphocyte % 8.4 %
[2020-12-17] MEDS: Insulin GLARGINE 100 un/ml 10 ml VIAL SUBCUT SCH (17:43)
[2020-12-17] MEDS: Senna TAB 8.6 mg TAB PO SCH (17:48)
[2020-12-18] MEDS ORDERED: NS 0.9% 250 ML BAG IV ONE (01:00)
[2020-12-18] MEDS ORDERED: Lidocaine PATCH 5% PATCH TRANSDERM ONE (04:34)
[2020-12-18] MEDS ORDERED: Lactated Ringers 1000 ml BAG 1,000 ML IV ONE (10:04)
[2020-12-18] MEDS: Collagenase 250 units/gm OINT 1 tube TOPICAL SCH (10:34)
[2020-12-18] MEDS ORDERED: Lidocaine Patch REMOVE PATCH PATCH OFF ONE (17:00)
[2020-12-18] MEDS: Senna TAB 8.6 mg TAB PO SCH (17:36)
[2020-12-18] MEDS: Insulin GLARGINE 100 un/ml 10 ml VIAL SUBCUT SCH (17:55)
[2020-12-19 06:02] LABS: ABS Basophils 0.1 10^3/ul (0-0.2); ABS Eosinophils 0.3 10^3/ul (0-0.6); ABS Lymphocytes 1.5 10^3/ul (1.0-4.8); ABS Monocytes 1.2 10^3/ul (0-0.8); ABS Neutrophils 6.6 10^3/ul (1.5-7.7); Eosinophil % 2.9 %; Hematocrit 22 % (42-52); Hemoglobin 7.4 g/dL (14.0-18.0); Lymphocyte % 15.2 %; Mean Corpuscular HGB Conc 34 g/dL (31-36); Mean Corpuscular Hemoglobin 33 pg (27-31); Mean Corpuscular Volume 97 fL (80-94); Mean Platelet Volume 7.8 fL (7.4-10.4); Platelet Count 232 10^3/uL (150-450); Red Blood Count 2.26 10^6 /uL (4.18-5.48); Red Cell Distribution Width 16 % (10-15); White Blood Count 9.6 10^3/uL (3.5-10.8)
[2020-12-19 06:38] LABS: Calcium 7.6 mg/dL (8.6-10.3); EGFR African American 9.8 (>60); EGFR Non-African American 8.1 (>60); Magnesium 2.3 mg/dL (1.9-2.7); Potassium 4.2 mmol/L (3.5-5.0)
[2020-12-19] MEDS: Collagenase 250 units/gm OINT 1 tube TOPICAL SCH (10:03)
[2020-12-19] MEDS: Albumin Human 25% 25 GM/100 ML BTL IV PRN (12:43)
[2020-12-19] MEDS: Senna TAB 8.6 mg TAB PO SCH (17:40)
[2020-12-19] MEDS: Insulin GLARGINE 100 un/ml 10 ml VIAL SUBCUT SCH (17:46)
[2020-12-20] MEDS: Collagenase 250 units/gm OINT 1 tube TOPICAL SCH (10:57)
[2020-12-20 11:00] LABS: ABS Eosinophils 0.4 10^3/ul (0-0.6); ABS Lymphocytes 1.2 10^3/ul (1.0-4.8); ABS Monocytes 1.5 10^3/ul (0-0.8); ABS Neutrophils 8.2 10^3/ul (1.5-7.7); Eosinophil % 3.2 %; Hematocrit 23 % (42-52); Hemoglobin 7.3 g/dL (14.0-18.0); Lymphocyte % 10.6 %; Mean Corpuscular HGB Conc 32 g/dL (31-36); Mean Corpuscular Hemoglobin 31 pg (27-31); Mean Corpuscular Volume 98 fL (80-94); Mean Platelet Volume 7.4 fL (7.4-10.4); Nucleated Red Blood Cells % 0.1; Platelet Count 302 10^3/uL (150-450); Red Blood Count 2.34 10^6 /uL (4.18-5.48); Red Cell Distribution Width 16 % (10-15); White Blood Count 11.3 10^3/uL (3.5-10.8)
[2020-12-20 11:28] LABS: Calcium 7.7 mg/dL (8.6-10.3); EGFR African American 14.8 (>60); EGFR Non-African American 12.3 (>60); Potassium 4.2 mmol/L (3.5-5.0)
[2020-12-20] MEDS: Senna TAB 8.6 mg TAB PO SCH (18:12)
[2020-12-20] MEDS: Insulin GLARGINE 100 un/ml 10 ml VIAL SUBCUT SCH (18:13)
[2020-12-20 21:05] LABS: Hematocrit 27 % (42-52); Hemoglobin 8.8 g/dL (14.0-18.0); Mean Corpuscular HGB Conc 32 g/dL (31-36); Mean Corpuscular Hemoglobin 31 pg (27-31); Mean Corpuscular Volume 94 fL (80-94); Mean Platelet Volume 7.1 fL (7.4-10.4); Platelet Count 308 10^3/uL (150-450); Red Blood Count 2.87 10^6 /uL (4.18-5.48); Red Cell Distribution Width 18 % (10-15); White Blood Count 16.6 10^3/uL (3.5-10.8)
[2020-12-20 21:36] LABS: ABS Basophils 0.1 10^3/ul (0-0.2); ABS Eosinophils 0.3 10^3/ul (0-0.6); ABS Lymphocytes 1.1 10^3/ul (1.0-4.8); ABS Monocytes 1.9 10^3/ul (0-0.8); ABS Neutrophils 13.1 10^3/ul (1.5-7.7); Eosinophil % 1.6 %; Lymphocyte % 6.8 %
[2020-12-21 06:54] LABS: ABS Basophils 0.1 10^3/ul (0-0.2); ABS Eosinophils 0.1 10^3/ul (0-0.6); ABS Lymphocytes 0.9 10^3/ul (1.0-4.8); ABS Monocytes 1.1 10^3/ul (0-0.8); ABS Neutrophils 15.2 10^3/ul (1.5-7.7); Eosinophil % 0.7 %; Hematocrit 30 % (42-52); Hemoglobin 9.8 g/dL (14.0-18.0); Lymphocyte % 4.9 %; Mean Corpuscular HGB Conc 33 g/dL (31-36); Mean Corpuscular Hemoglobin 31 pg (27-31); Mean Corpuscular Volume 93 fL (80-94); Mean Platelet Volume 7.5 fL (7.4-10.4); Platelet Count 327 10^3/uL (150-450); Red Blood Count 3.18 10^6 /uL (4.18-5.48); Red Cell Distribution Width 18 % (10-15); White Blood Count 17.4 10^3/uL (3.5-10.8)
[2020-12-21 07:11] LABS: Calcium 7.9 mg/dL (8.6-10.3); EGFR Non-African American 9.9 (>60)
[2020-12-21] MEDS: Collagenase 250 units/gm OINT 1 tube TOPICAL SCH (12:29)
[2020-12-21] MEDS: Insulin GLARGINE 100 un/ml 10 ml VIAL SUBCUT SCH (17:32)
[2020-12-21] MEDS: Senna TAB 8.6 mg TAB PO SCH (17:32)
[2020-12-22 06:12] LABS: Hematocrit 26 % (42-52); Hemoglobin 8.3 g/dL (14.0-18.0); Mean Corpuscular HGB Conc 32 g/dL (31-36); Mean Corpuscular Hemoglobin 30 pg (27-31); Mean Corpuscular Volume 95 fL (80-94); Mean Platelet Volume 7.4 fL (7.4-10.4); Platelet Count 297 10^3/uL (150-450); Red Blood Count 2.73 10^6 /uL (4.18-5.48); Red Cell Distribution Width 18 % (10-15); White Blood Count 15.9 10^3/uL (3.5-10.8)
[2020-12-22 06:36] LABS: Calcium 7.8 mg/dL (8.6-10.3); EGFR Non-African American 11.5 (>60); Magnesium 2.1 mg/dL (1.9-2.7); Potassium 3.6 mmol/L (3.5-5.0)
[2020-12-22 08:18] LABS: ABS Basophils 0.1 10^3/ul (0-0.2); ABS Eosinophils 0.4 10^3/ul (0-0.6); ABS Lymphocytes 2.1 10^3/ul (1.0-4.8); ABS Neutrophils 11.3 10^3/ul (1.5-7.7); Eosinophil % 2.6 %; Lymphocyte % 13.2 %
[2020-12-22] MEDS ORDERED: Potassium Chlor 20 meq TAB.ER PO ONE (08:23)
[2020-12-22] MEDS: Collagenase 250 units/gm OINT 1 tube TOPICAL SCH (13:24)
[2020-12-22] MEDS: Senna TAB 8.6 mg TAB PO SCH (17:43)
[2020-12-22] MEDS: Insulin GLARGINE 100 un/ml 10 ml VIAL SUBCUT SCH (17:43)
[2020-12-23 07:29] LABS: Hematocrit 26 % (42-52); Hemoglobin 8.7 g/dL (14.0-18.0); Mean Corpuscular HGB Conc 33 g/dL (31-36); Mean Corpuscular Hemoglobin 32 pg (27-31); Mean Corpuscular Volume 95 fL (80-94); Mean Platelet Volume 7.4 fL (7.4-10.4); Platelet Count 257 10^3/uL (150-450); Red Blood Count 2.74 10^6 /uL (4.18-5.48); Red Cell Distribution Width 17 % (10-15)
[2020-12-23 07:37] LABS: ABS Basophils 0.1 10^3/ul (0-0.2); ABS Eosinophils 0.5 10^3/ul (0-0.6); ABS Lymphocytes 2.1 10^3/ul (1.0-4.8); ABS Monocytes 1.7 10^3/ul (0-0.8); ABS Neutrophils 8.6 10^3/ul (1.5-7.7); Eosinophil % 4.2 %; Lymphocyte % 15.8 %
[2020-12-23 07:45] LABS: Calcium 7.7 mg/dL (8.6-10.3); EGFR African American 10.7 (>60); EGFR Non-African American 8.8 (>60); Magnesium 2.2 mg/dL (1.9-2.7); Phosphorus 4.8 mg/dL (2.5-5.0); Potassium 4.3 mmol/L (3.5-5.0)
[2020-12-23] MEDS: Collagenase 250 units/gm OINT 1 tube TOPICAL SCH (09:01)
[2020-12-23] MEDS: Insulin GLARGINE 100 un/ml 10 ml VIAL SUBCUT SCH (17:29)
[2020-12-23] MEDS: Senna TAB 8.6 mg TAB PO SCH (17:33)
[2020-12-24 04:51] LABS: ABS Basophils 0.1 10^3/ul (0-0.2); ABS Eosinophils 0.5 10^3/ul (0-0.6); ABS Lymphocytes 2.3 10^3/ul (1.0-4.8); ABS Monocytes 1.5 10^3/ul (0-0.8); ABS Neutrophils 9.5 10^3/ul (1.5-7.7); Eosinophil % 3.6 %; Hematocrit 27 % (42-52); Hemoglobin 8.7 g/dL (14.0-18.0); Lymphocyte % 16.5 %; Mean Corpuscular HGB Conc 32 g/dL (31-36); Mean Corpuscular Hemoglobin 31 pg (27-31); Mean Corpuscular Volume 96 fL (80-94); Mean Platelet Volume 7.5 fL (7.4-10.4); Platelet Count 277 10^3/uL (150-450); Red Blood Count 2.82 10^6 /uL (4.18-5.48); Red Cell Distribution Width 17 % (10-15)
[2020-12-24 05:09] LABS: Calcium 7.5 mg/dL (8.6-10.3); EGFR African American 9.5 (>60); EGFR Non-African American 7.8 (>60); Potassium 4.5 mmol/L (3.5-5.0)
[2020-12-24] MEDS: Collagenase 250 units/gm OINT 1 tube TOPICAL SCH (12:04)
[2020-12-24] MEDS: Insulin GLARGINE 100 un/ml 10 ml VIAL SUBCUT SCH (17:29)
[2020-12-24] MEDS: Senna TAB 8.6 mg TAB PO SCH (17:29)
[2020-12-25 05:50] LABS: Hematocrit 26 % (42-52); Hemoglobin 8.3 g/dL (14.0-18.0); Mean Corpuscular HGB Conc 32 g/dL (31-36); Mean Corpuscular Hemoglobin 31 pg (27-31); Mean Corpuscular Volume 94 fL (80-94); Platelet Count 244 10^3/uL (150-450); Red Cell Distribution Width 17 % (10-15); White Blood Count 11.9 10^3/uL (3.5-10.8)
[2020-12-25 06:05] LABS: ABS Lymphocytes 2.3 10^3/ul (1.0-4.8); ABS Neutrophils 7.3 10^3/ul (1.5-7.7); Calcium 7.5 mg/dL (8.6-10.3); EGFR African American 15.4 (>60); EGFR Non-African American 12.7 (>60); Magnesium 1.9 mg/dL (1.9-2.7); Potassium 3.8 mmol/L (3.5-5.0)
[2020-12-25 06:06] LABS: ABS Basophils 0.1 10^3/ul (0-0.2); ABS Eosinophils 0.5 10^3/ul (0-0.6); ABS Monocytes 1.7 10^3/ul (0-0.8); Eosinophil % 4.1 %; Lymphocyte % 19.3 %
[2020-12-25 06:42] LABS: TSH Ultra Thyroid Stim Horm 3.45 mcIU/mL (0.34-5.60)
[2020-12-25] MEDS: Collagenase 250 units/gm OINT 1 tube TOPICAL SCH (13:36)
[2020-12-25] MEDS: Insulin GLARGINE 100 un/ml 10 ml VIAL SUBCUT SCH (17:57)
[2020-12-25] MEDS: Senna TAB 8.6 mg TAB PO SCH (17:58)
[2020-12-26 08:30] LABS: ABS Basophils 0.1 10^3/ul (0-0.2); ABS Eosinophils 0.4 10^3/ul (0-0.6); ABS Lymphocytes 1.3 10^3/ul (1.0-4.8); ABS Monocytes 1.1 10^3/ul (0-0.8); ABS Neutrophils 7.2 10^3/ul (1.5-7.7); Eosinophil % 3.8 %; Hematocrit 24 % (42-52); Lymphocyte % 12.7 %; Mean Corpuscular HGB Conc 34 g/dL (31-36); Mean Corpuscular Hemoglobin 32 pg (27-31); Mean Corpuscular Volume 93 fL (80-94); Platelet Count 225 10^3/uL (150-450); Red Blood Count 2.54 10^6 /uL (4.18-5.48); Red Cell Distribution Width 17 % (10-15)
[2020-12-26] MEDS: Collagenase 250 units/gm OINT 1 tube TOPICAL SCH (11:58)
[2020-12-26] MEDS: Polyethylene Glycol 3350 17 GM PACKET PO PRN (14:32)
[2020-12-26] MEDS: Insulin GLARGINE 100 un/ml 10 ml VIAL SUBCUT SCH (18:05)
[2020-12-26] MEDS: Senna TAB 8.6 mg TAB PO SCH (18:06)
[2020-12-27] MEDS ORDERED: Heparin 1,000 UNIT/ML 10 ml (10,000 UNITS) CATHLAB/DIALYSIS DIALYSIS ONE (05:30)
[2020-12-27] MEDS: Albumin Human 25% 25 GM/100 ML BTL IV PRN (07:03)
[2020-12-27] MEDS: Polyethylene Glycol 3350 17 GM PACKET PO PRN (10:37)
[2020-12-27] MEDS: Collagenase 250 units/gm OINT 1 tube TOPICAL SCH (11:00)
[2020-12-27] MEDS: Senna TAB 8.6 mg TAB PO SCH (17:33)
[2020-12-27] MEDS: Insulin GLARGINE 100 un/ml 10 ml VIAL SUBCUT SCH (17:34)
[2020-12-28] MEDS: Collagenase 250 units/gm OINT 1 tube TOPICAL SCH (09:52)
[2020-12-28] MEDS: Senna TAB 8.6 mg TAB PO SCH (17:56)
[2020-12-28] MEDS: Insulin GLARGINE 100 un/ml 10 ml VIAL SUBCUT SCH (17:57)
[2020-12-29] MEDS: Collagenase 250 units/gm OINT 1 tube TOPICAL SCH (08:42)
[2020-12-29] MEDS: Insulin GLARGINE 100 un/ml 10 ml VIAL SUBCUT SCH (17:14)
[2020-12-29] MEDS: Senna TAB 8.6 mg TAB PO SCH (17:14)
[2020-12-30] MEDS: Collagenase 250 units/gm OINT 1 tube TOPICAL SCH (07:59)
[2020-12-30] MEDS: Insulin GLARGINE 100 un/ml 10 ml VIAL SUBCUT SCH (17:31)
[2020-12-30] MEDS: Senna TAB 8.6 mg TAB PO SCH (17:31)
[2020-12-31 07:56] LABS: EGFR African American 9.1 (>60); EGFR Non-African American 7.5 (>60)
[2020-12-31 08:07] LABS: Potassium 5.5 mmol/L (3.5-5.0)
[2020-12-31] MEDS ORDERED: Sodium Polystyrene ORAL.SUSP 15 GM/60 ML BTL PO ONE (08:22)
[2020-12-31] MEDS: Collagenase 250 units/gm OINT 1 tube TOPICAL SCH (08:59)
[2020-12-31 11:29] VITALS: BP 105/67
== END 2020-12-31 13:45 | DRG 521 ==
LOC: ED 06:38 → SUATTDRO 11:07 → SSU 11:07
PROVIDERS: ADMIT Internal Medicine; ATTEND Hospitalist